=== PATIENT | female | born 1950 | race Two or more races ===

== ENCOUNTER 2020-03-27 09:19 | Outpatient (REF) | payer MEDICARE, MEDICAID, SELFPAY ==
--- NOTE | 2020-03-27 09:35 | US_ITS ---
EXAMINATION: ULTRASOUND GUIDED CORE BIOPSY BREAST (THREE SITES), LEFT POST PROCEDURE DIGITAL BREAST TOMOSYNTHESIS, LEFT CLINICAL INFORMATION: Dominant solid mass anterior upper outer left breast with 2 smaller adjacent satellite lesions, all 3 for sampling. COMPARISON: Mammography 03/13/2020, targeted left breast ultrasound 03/13/2020. FINDINGS: Hospital provided certified court interpreter assisted for both the consent and throughout the procedure. Proper informed consent is obtained from the patient after discussion of the procedure, potential risks and complications, and alternatives. Patient was given an opportunity for questions. The patient appeared to understand. The patient consented to the procedure and signed the consent form. SPECIMEN A: LOCATION: Dominant mass, anterior upper outer left breast 2:00 position, 2 cm from nipple. GUIDANCE: Ultrasound-guided; aseptic technique. LESION: Dominant hypoechoic solid mass approximately 2.3 cm. APPROACH: Oblique lateral medial. ANESTHESIA: 8 mL 1% lidocaine. DERMATOTOMY: Single skin macrina dermatotomy performed. NEEDLE: 14-gauge Achieve core biopsy device with 13.5-gauge co-axial guide needle. CORES: 5. CLIP: HydroMARK; shape: open coil. SPECIMEN B: New biopsy supplies are used. LOCATION: Approximately 1.4 cm lateral to the dominant lesion at specimen A. GUIDANCE: Ultrasound-guided; aseptic technique. LESION: Satellite hypoechoic mass approximately 0.7 cm. APPROACH: Oblique lateral medial through same dermatotomy site. ANESTHESIA: 5 mL 1% lidocaine. DERMATOTOMY: The same skin macrina dermatotomy site from the first lesion is used to access the lesion for the second biopsy. NEEDLE: 14-gauge Achieve core biopsy device with 13.5-gauge co-axial guide needle. CORES: 5. CLIP: HydroMARK; shape: butterfly. SPECIMEN C: New biopsy supplies are used. LOCATION: Slightly more lateral and superficial to specimens A and B. GUIDANCE: Ultrasound-guided; aseptic technique. LESION: Hypoechoic nodule 0.5 cm. APPROACH: Oblique lateral medial through same dermatotomy site. ANESTHESIA: 5 mL 1% lidocaine. DERMATOTOMY: A new skin macrina dermatotomy is performed to allow for the second site of biopsy. . NEEDLE: 14-gauge Achieve core biopsy device with 13.5-gauge co-axial guide needle. CORES: 5. CLIP: HydroMARK; shape: barrel. POST PROCEDURE DIGITAL BREAST TOMOSYNTHESIS, LEFT The post biopsy mammogram is performed in separate room using separate digital breast tomosynthesis equipment. Synthesized 2-D views are obtained from the tomography. In addition, magnification left CC and magnification left ML x3 views are obtained to assist in identifying the clips from the background calcifications. There are scattered areas of fibroglandular density (breast composition category: b). The 3 clip markers are in position. No gross hematoma. The patient tolerated the procedure well. No immediate complications. Home instructions reviewed with the patient. Final pathology results are pending. IMPRESSION: 1. Status post ultrasound-guided core biopsy left breast (3 lesions sampled). 2. Clips placed: HydroMARK; 3 shapes: open coil; butterfly, and barrel. 3. Pathology pending. An addendum report will be issued.
== END 2020-03-27 09:20 | disposition home or self-care (01) ==
LOC: HO.MAMMO 09:19
PROVIDERS: PCP Internal Medicine; Visit Provider Surgery
DX: C50.412 Malignant neoplasm of upper-outer quadrant of left female breast (principal); Z17.1 Estrogen receptor negative status [ER-]; I10 Essential (primary) hypertension; E11.9 Type 2 diabetes mellitus without complications; E78.5 Hyperlipidemia, unspecified
CPT/HCPCS: 19083; 19084; 19286; 77065; 78012; 88305; 88341; 88342; 88360; 88377; 99203; A4648

== ENCOUNTER → 2020-03-30 11:51 | Outpatient (BNVA) | payer MEDICARE, MEDICAID, SELFPAY | PROVIDERS: PCP Internal Medicine; Visit Provider Surgery | DX: C50.912 Malignant neoplasm of unspecified site of left female breast (principal); Z17.1 Estrogen receptor negative status [ER-]; Z98.890 Other specified postprocedural states | CPT/HCPCS: 99213 ==

== ENCOUNTER → 2020-04-05 10:56 | Outpatient (BNVA) | payer MEDICARE, MEDICAID, SELFPAY | PROVIDERS: PCP Internal Medicine; Visit Provider Surgery | DX: C50.412 Malignant neoplasm of upper-outer quadrant of left female breast (principal) | CPT/HCPCS: 99214 ==

== ENCOUNTER 2020-04-16 08:16 | Inpatient (IN) | payer MEDICARE, MEDICAID, SELFPAY ==
[2020-04-13 12:02] VITALS: BMI 32.5
--- NOTE | 2020-04-13 12:20 | HO.ANESPROP2 ---
Documented by User: Lorna Ramirez 04/13/20 12:22 HPI - Anesthesia Eval Consult details Narrative: 70yo F for L mastectomy PMFSH Past Medical History Medical History Abnormal mammogram of left breast Degenerative disc disease Depression Diabetes Dyslipidemia Hypertension Obesity Obstructive sleep apnea Family History Family History Father History of hypertension History of diabetes mellitus Mother History of hypertension History of colon cancer History of diabetes mellitus History of colon polyps History of hypercholesterolemia Paternal Grandfather History of diabetes mellitus Paternal Grandmother History of diabetes mellitus Maternal Grandfather History of diabetes mellitus Maternal Grandmother History of diabetes mellitus History of breast cancer Maternal Uncle History of leukemia Surgical History Surgical History History of colonoscopy (~04/24/06) History of colonoscopy (~07/31/17) History of tubal ligation Invasive ductal carcinoma of left breast Social History Social History Smoking Status: Never smoker Second Hand Smoke Exposure: No Use of substances other than those prescribed or required for medical reasons: No Advance Directives: No Advance Directives Information Provided: Yes Meds Allergies Allergy/AdvReac Type Severity Reaction Status Date / Time iodine Allergy Unknown rash chest Verified 03/30/20 11:56 pain IV dye Allergy Unknown chest Verified 03/30/20 11:56 pian, SOB, pupils dilated oxaprozin [Daypro] Allergy Unknown gastritis Verified 03/30/20 11:56 Home Medications Medication Instructions Recorded Confirmed Type albuterol sulfate 90 mcg/actuation 2 puff INHALATION QID 03/24/20 04/05/20 History aerosol inhaler aspirin 81 mg tablet,delayed 81 mg PO DAILY 03/24/20 04/05/20 History release beclomethasone dipropionate 80 1 inh INHALATION BID 03/24/20 04/05/20 History mcg/actuation HFA breath activated aerosol cholecalciferol (vitamin D3) 25 25 mcg PO DAILY 03/24/20 04/05/20 History mcg (1,000 unit) capsule cyanocobalamin (vitamin B-12) 500 500 mcg PO DAILY 03/24/20 04/05/20 History mcg tablet gabapentin 100 mg capsule 100 mg PO TID 03/24/20 04/05/20 History metformin 1,000 mg tablet 1,000 mg PO BID tab 03/24/20 04/05/20 History omega-3 fatty acids 1,000 mg 1,000 mg PO DAILY 03/24/20 04/05/20 History capsule sertraline 50 mg tablet 50 mg PO DAILY tab 03/24/20 04/05/20 History simvastatin 20 mg tablet 20 mg PO DAILY 03/24/20 04/05/20 History tramadol 50 mg tablet 50 mg PO BID PRN tab 03/24/20 04/05/20 History acetaminophen 650 mg 650 mg PO Q8H 03/27/20 04/05/20 History tablet,extended release lisinopril 20 1 tab PO DAILY 03/27/20 04/05/20 History mg-hydrochlorothiazide 25 mg tablet polysorbate 80-glycerin 1 %-1 % drp OPHTHALMIC (EYE) 03/27/20 04/05/20 History eye drops in a dropperette Exam Exam Date and Time: April 13, 2020 1220 Height,Weight and Vital Signs: Height 5 ft 6 in Weight 91.626 kg Pertinent Lab Results Pertinent Lab Results: Laboratory Tests 02/29/20 02/29/20 12:15 12:15 WBC 4.7 L Hgb 14.7 Hct 46.1 Plt Count 296 Sodium 139 Potassium 4.8 Chloride 98 BUN 9 Creatinine 0.94 Documented by User: Savannah Mistry 04/16/20 08:45 [facility] Past Medical History Medical History Abnormal mammogram of left breast Degenerative disc disease Depression Diabetes Dyslipidemia Hypertension Obesity Obstructive sleep apnea Family History Family History Father History of hypertension History of diabetes mellitus Mother History of hypertension History of colon cancer History of diabetes mellitus History of colon polyps History of hypercholesterolemia Paternal Grandfather History of diabetes mellitus Paternal Grandmother History of diabetes mellitus Maternal Grandfather History of diabetes mellitus Maternal Grandmother History of diabetes mellitus History of breast cancer Maternal Uncle History of leukemia Surgical History Surgical History History of colonoscopy (~04/24/06) History of colonoscopy (~07/31/17) History of tubal ligation Invasive ductal carcinoma of left breast Social History Social History Smoking Status: Never smoker Second Hand Smoke Exposure: No Use of substances other than those prescribed or required for medical reasons: No Advance Directives: No Advance Directives Information Provided: Yes Meds Allergies Allergy/AdvReac Type Severity Reaction Status Date / Time iodine Allergy Unknown rash chest Verified 03/30/20 11:56 pain IV dye Allergy Unknown chest Verified 03/30/20 11:56 pian, SOB, pupils dilated oxaprozin [Daypro] Allergy Unknown gastritis Verified 03/30/20 11:56 Home Medications Medication Instructions Recorded Confirmed Type albuterol sulfate 90 mcg/actuation 2 puff INHALATION QID 03/24/20 04/05/20 History aerosol inhaler aspirin 81 mg tablet,delayed 81 mg PO DAILY 03/24/20 04/05/20 History release beclomethasone dipropionate 80 1 inh INHALATION BID 03/24/20 04/05/20 History mcg/actuation HFA breath activated aerosol cholecalciferol (vitamin D3) 25 25 mcg PO DAILY 03/24/20 04/05/20 History mcg (1,000 unit) capsule cyanocobalamin (vitamin B-12) 500 500 mcg PO DAILY 03/24/20 04/05/20 History mcg tablet gabapentin 100 mg capsule 100 mg PO TID 03/24/20 04/05/20 History metformin 1,000 mg tablet 1,000 mg PO BID tab 03/24/20 04/05/20 History omega-3 fatty acids 1,000 mg 1,000 mg PO DAILY 03/24/20 04/05/20 History capsule sertraline 50 mg tablet 50 mg PO DAILY tab 03/24/20 04/05/20 History simvastatin 20 mg tablet 20 mg PO DAILY 03/24/20 04/05/20 History tramadol 50 mg tablet 50 mg PO BID PRN tab 03/24/20 04/05/20 History acetaminophen 650 mg 650 mg PO Q8H 03/27/20 04/05/20 History tablet,extended release lisinopril 20 1 tab PO DAILY 03/27/20 04/05/20 History mg-hydrochlorothiazide 25 mg tablet polysorbate 80-glycerin 1 %-1 % drp OPHTHALMIC (EYE) 03/27/20 04/05/20 History eye drops in a dropperette Exam Airway Mallampati Class: II TM Dist: >3cm Neck ROM: Full Assessment and Plan Assessment Anesthesia Assessment: Anesthesia Plan Discussed and Chart Reviewed Final Anesthetic Review NPO: Yes ASA Class: III Final Preanesthetic Review: No Changes in Pt Med Stat, Meds/Allgs Chart Reviewed, Consent Obtained/Reviewed and Anes Risks/Benef Reviewed Patient Risk: Intermediate Procedure Risk: Low Assessment/Block/Sedation in SS: Assess/Block/Sedation-SS Anesthetic Plan Anesthetic Plan: GA Disposition: Standard PACU
[2020-04-16] VITALS (21 sets, daily range): BP systolic 101–171; BP diastolic 46–96; PULSE 73–91; RESP 16–20; TEMP 35.9–36.9; O2SAT 92–99
[2020-04-16 08:38] LABS: Glucose, Whole Blood 129 mg/dL (60-115)
[2020-04-16] MEDS: ceFAZolin Sodium/Dextrose,Iso 2 GM/50 ML PIGGYBACK IV (08:57)
[2020-04-16] MEDS: Lactated Ringers 1,000 ML 100 ML IVCONT (08:58)
[2020-04-16 09:49] LABS: SARS COV2 PCR INHOUSE NEGATIVE (Negative)
--- NOTE | 2020-04-16 10:25 | MHC.SHP ---
Pre-Procedural Eval Section A The patient is an INPATIENT: No Changes since office visit: No Cold of Flu in the past 2 weeks, No New Medical Problems and No Changes in Medication The History & Physical has been completed within 30 days and I have reviewed it.: Yes Section B Chief Complaint: Invasive Ductal Carcinoma of Left Breast Allergies: Allergies Allergy/AdvReac Type Severity Reaction Status Date / Time iodine Allergy Unknown rash chest Verified 03/30/20 11:56 pain IV dye Allergy Unknown chest Verified 03/30/20 11:56 pian, SOB, pupils dilated oxaprozin [Daypro] Allergy Unknown gastritis Verified 03/30/20 11:56 Plan Diagnosis/Plan: Unchanged Patient has been examined and remains a candidate for the planned procedure
--- NOTE | 2020-04-16 10:56 | P.CONAN_ITS ---
[facility] Past Medical History Medical History Abnormal mammogram of left breast Degenerative disc disease Depression Diabetes Dyslipidemia Hypertension Obesity Obstructive sleep apnea Family History Family History Father History of hypertension History of diabetes mellitus Mother History of hypertension History of colon cancer History of diabetes mellitus History of colon polyps History of hypercholesterolemia Paternal Grandfather History of diabetes mellitus Paternal Grandmother History of diabetes mellitus Maternal Grandfather History of diabetes mellitus Maternal Grandmother History of diabetes mellitus History of breast cancer Maternal Uncle History of leukemia Surgical History Surgical History History of colonoscopy (~04/24/06) History of colonoscopy (~07/31/17) History of tubal ligation Invasive ductal carcinoma of left breast Social History Social History Smoking Status: Never smoker Second Hand Smoke Exposure: No Use of substances other than those prescribed or required for medical reasons: No Advance Directives: No Advance Directives Information Provided: Yes Meds Allergies Allergy/AdvReac Type Severity Reaction Status Date / Time iodine Allergy Unknown rash chest Verified 03/30/20 11:56 pain IV dye Allergy Unknown chest Verified 03/30/20 11:56 pian, SOB, pupils dilated oxaprozin [Daypro] Allergy Unknown gastritis Verified 03/30/20 11:56 Home Medications Medication Instructions Recorded Confirmed Type albuterol sulfate 90 mcg/actuation 2 puff INHALATION QID 03/24/20 04/05/20 History aerosol inhaler aspirin 81 mg tablet,delayed 81 mg PO DAILY 03/24/20 04/05/20 History release beclomethasone dipropionate 80 1 inh INHALATION BID 03/24/20 04/05/20 History mcg/actuation HFA breath activated aerosol cholecalciferol (vitamin D3) 25 25 mcg PO DAILY 03/24/20 04/05/20 History mcg (1,000 unit) capsule cyanocobalamin (vitamin B-12) 500 500 mcg PO DAILY 03/24/20 04/05/20 History mcg tablet gabapentin 100 mg capsule 100 mg PO TID 03/24/20 04/05/20 History metformin 1,000 mg tablet 1,000 mg PO BID tab 03/24/20 04/05/20 History omega-3 fatty acids 1,000 mg 1,000 mg PO DAILY 03/24/20 04/05/20 History capsule sertraline 50 mg tablet 50 mg PO DAILY tab 03/24/20 04/05/20 History simvastatin 20 mg tablet 20 mg PO DAILY 03/24/20 04/05/20 History tramadol 50 mg tablet 50 mg PO BID PRN tab 03/24/20 04/05/20 History acetaminophen 650 mg 650 mg PO Q8H 03/27/20 04/05/20 History tablet,extended release lisinopril 20 1 tab PO DAILY 03/27/20 04/05/20 History mg-hydrochlorothiazide 25 mg tablet polysorbate 80-glycerin 1 %-1 % drp OPHTHALMIC (EYE) 03/27/20 04/05/20 History eye drops in a dropperette Exam Exam Date and Time: April 16, 2020 1056 Height,Weight and Vital Signs: Height 5 ft 6 in Weight 91.626 kg Last Vital Signs Temp 97.9 F 04/16/20 08:35 Pulse 77 04/16/20 08:35 Resp 18 04/16/20 08:35 BP 171/81 H 04/16/20 08:35 Pulse Ox 99 04/16/20 08:35 Pertinent Lab Results Pertinent Lab Results: Laboratory Tests 04/16/20 04/16/20 08:17 08:28 POC Glucose 129 H Coronavirus (PCR) NEGATIVE
--- NOTE | 2020-04-16 13:03 | PM.OP ---
Brief Operative Note Date of procedure: 04/16/20 Pre-op diagnosis: left infiltrating ductal carcinoma Post-op diagnosis: same Procedure: left modified radical mastectomy Surgeon: SLADE PATINO MD Anesthesia: GLMA Fire Control System Installer: Tiarra Lr Estimated blood loss (mL): 30 Pathology: other (left breast and axillary contents) Condition: stable Disposition: PACU
--- NOTE | 2020-04-16 13:07 | W.PM.OPN ---
Operative Note Operative Note Narrative: Date of procedure: 04/16/20 Pre-op diagnosis: left infiltrating ductal carcinoma Post-op diagnosis: same Procedure: left modified radical mastectomy Indications:70-year-old female patient presenting with a palpable mass in the left breast at the upper outer quadrant. Subsequent core biopsy under radiologic guidance revealed an invasive ductal carcinoma. On examination the patient has an approximately 5 cm tumor in the upper outer quadrant with overlying skin changes including skin redness suggestive of tumor infiltration. The tumor is fixed to the skin but not chest wall. Operative findings: 5 cm tumor in the upper outer quadrant of the left breast with fixation to the skin. Several enlarged lymph nodes were palpable in the axilla. Procedure details: Patient was brought to the OR and placed in a supine position. After administering general anesthesia, the left breast was prepped with ChloraPrep and draped in a sterile fashion. A surgical time-out was called and the consent confirmed. Patient received preoperative antibiotics and Venodyne boots were in place. Local anesthesia consisting of 0.75% Sensorcaine with epinephrine was infiltrated in elliptical fashion around the left breast. An elliptical incision oriented towards the axilla obliquely was then created with margins around the palpable mass of approximately 2 cm. The superior skin flap was developed 1st using electrocautery extending the subcutaneous dissection up to the clavicles. The inferior dissection of the inferior flap was continued down to the costal margin. Lateral dissection was continued to the lateral border of the pectoralis major and anterior border of the latissimus Armando muscles. The breast was then dissected off the chest wall using electrocautery including the pectoralis fascia. This was started from superior to inferior medial to lateral. Dissection was continued around the pectoralis muscle to include Kelly's nodes. Dissection was continued down along the pectoralis major until the axillary vein was identified. The axillary vein was preserved and the overlying lymphatic channels overlying the axillary vein were preserved as well. Dissection was continued down along the axillary vein to identify the thoracodorsal nerve artery and vein. In addition the long thoracic nerve was identified and preserved. The intercostal brachial nerve was sacrificed as a transverse the axillary contents. Axillary tissue from below the pectoralis minor muscle was a included as well (level 2 ) as well as level 1 nodes. Hemostasis was assured all times using free ties of 3 0 Polysorb suture. Lateral dissection was continued along the latissimus Armando muscle and the specimen removed. The specimen was marked with a long suture at the apex of the axilla a short suture at the medial border of the breast and a loop suture at the inferior border of the breast. Two large [place] drains were brought up through separate stab wounds of brought into the axilla and medial flap of the breast. These were secured to the skin using a 4 0 nylon suture. Wounds were irrigated and suctioned dry. Hemostasis was assured using electrocautery. Skin edges were then reapproximated using interrupted 3 0 Polysorb sutures. Skin was then closed using a running subcuticular 4 0 Polysorb suture. Steri-Strips 4 x 4 gauze and Tegaderm were then applied. The patient tolerated the procedure well. Sponge, instrument, and needle counts reported as correct. Patient was transferred to PACU in stable condition. Surgeon: SLADE PATINO MD Anesthesia: GLMA Injection Press Operator: Tiarra Lr Estimated blood loss (mL): 30 Pathology: other (left breast and axillary contents) Condition: stable Disposition: PACU Breast Axillary Dissection Resection was performed within the boundaries of the axillary vein, chest wall (serratus anterior), and latissimus dorsi: Yes The long thoracic and thoracodorsal nerves were spared during dissection: Yes Attempts were made to spare the intercostobrachial nerves during dissection if possible: No General Surg. - Synoptic Notes Breast Axillary Dissection Resection was performed within the boundaries of the axillary vein, chest wall (serratus anterior), and latissimus dorsi: Yes The long thoracic and thoracodorsal nerves were spared during dissection: Yes Attempts were made to spare the intercostobrachial nerves during dissection if possible: No
[2020-04-16 13:14] LABS: Glucose, Whole Blood 135 mg/dL (60-115)
[2020-04-16] MEDS: Acetaminophen 325 MG TABLET 650 MG PO (13:32)
[2020-04-16] MEDS: oxyCODONE HCl Immed Release 5 MG TABLET PO ×2 (13:33→20:37)
[2020-04-16] MEDS: fentaNYL citrate/PF 100 MCG/2 ML VIAL 50 MCG IVPUSH ×2 (13:35→13:40)
[2020-04-16] MEDS: Morphine Sulfate 4 MG/ML CARTRIDGE IVPUSH (17:50)
[2020-04-16] MEDS: Dextrose 5 % and 0.45 % NaCl 1,000 ML 100 ML IVCONT (17:54)
--- NOTE | 2020-04-16 20:43 | P.CONIM_ITS ---
History of Present Illness Data of Consult Service Date: 04/16/20 <Lynn Glynn NP - Last Filed: 04/17/20 18:30> Requesting physician: Tobi Trujillo <Lynn Glynn NP - Last Filed: 04/17/20 18:30> Primary Care Provider: Julieth Pérez MD <Lynn Glynn NP - Last Filed: 04/17/20 18:30> HPI Reason for consult: Medical management <Lynn Glynn NP - Last Filed: 04/17/20 18:30> 70 Year old man/woman with history of breast cancer, htn, hld admitted by general surgery and is status post mastectomy. Surgery was unremarkable. Patient has been able to eat and drink without any nausea or vomiting. Pain level is mild. No acute medical complaints at this time. <Lynn Glynn NP - Last Filed: 04/17/20 18:30> Review of Systems Review of Systems: Denies any recent fever chills or decrease in appetite respiratory denies any shortness of breath coverage production cardiovascular is adjustment of any PND or edema gastrointestinal denies any dysphagia abdominal pain nausea vomiting or diarrhea genitourinary denies any dysuria frequency or hematuria postop mastectomy neuropsych denies any weakness or seizures all other systems reviewed are negative <Lynn Glynn NP - Last Filed: 04/17/20 18:30> [facility] Medical History: Medical History (Updated 04/16/20 @ 20:46 by Lynn Glynn NP) Abnormal mammogram of left breast Degenerative disc disease Depression Diabetes Dyslipidemia Hypertension Obesity Obstructive sleep apnea <Lynn Glynn NP - Last Filed: 04/17/20 18:30> Family History: Family History Father History of hypertension History of diabetes mellitus Mother History of hypertension History of colon cancer History of diabetes mellitus History of colon polyps History of hypercholesterolemia Paternal Grandfather History of diabetes mellitus Paternal Grandmother History of diabetes mellitus Maternal Grandfather History of diabetes mellitus Maternal Grandmother History of diabetes mellitus History of breast cancer Maternal Uncle History of leukemia <Lynn Glynn NP - Last Filed: 04/17/20 18:30> Surgical History: Surgical History (Updated 04/17/20 @ 07:48 by Tiarra Lr PA-C) History of colonoscopy (~04/24/06) History of colonoscopy (~07/31/17) History of tubal ligation Invasive ductal carcinoma of left breast <Lynn Glynn NP - Last Filed: 04/17/20 18:30> Social History: Social History Household Members: Family Smoking Status: Never smoker Second Hand Smoke Exposure: No service: No Current occupational status: disabled <Lynn Glynn NP - Last Filed: 04/17/20 18:30> Meds Allergies/Adverse reactions: Allergies Allergy/AdvReac Type Severity Reaction Status Date / Time iodine Allergy Unknown rash chest Verified 04/16/20 19:43 pain IV dye Allergy Unknown chest Verified 04/16/20 19:43 pian, SOB, pupils dilated oxaprozin [Daypro] Allergy Unknown gastritis Verified 04/16/20 19:43 <Lynn Glynn NP - Last Filed: 04/17/20 18:30> Home medications: Home Medications Medication Instructions Recorded Confirmed Type albuterol sulfate 90 mcg/actuation 2 puff INHALATION QID PRN 03/24/20 04/16/20 History aerosol inhaler aspirin 81 mg tablet,delayed 81 mg PO DAILY 03/24/20 04/16/20 History release beclomethasone dipropionate 80 1 inh INHALATION BID 03/24/20 04/16/20 History mcg/actuation HFA breath activated aerosol cholecalciferol (vitamin D3) 25 25 mcg PO DAILY 03/24/20 04/16/20 History mcg (1,000 unit) capsule cyanocobalamin (vitamin B-12) 500 500 mcg PO DAILY 03/24/20 04/16/20 History mcg tablet metformin 1,000 mg tablet 1,000 mg PO BID tab 03/24/20 04/16/20 History omega-3 fatty acids 1,000 mg 1,000 mg PO DAILY 03/24/20 04/16/20 History capsule sertraline 50 mg tablet 50 mg PO DAILY tab 03/24/20 04/16/20 History tramadol 50 mg tablet 50 mg PO BID PRN tab 03/24/20 04/16/20 History acetaminophen 650 mg 650 mg PO DIRECTED PRN 03/27/20 04/16/20 History tablet,extended release lisinopril 20 1 tab PO DAILY 03/27/20 04/16/20 History mg-hydrochlorothiazide 25 mg tablet atorvastatin 10 mg PO BEDTIME 04/16/20 04/16/20 History carboxymethylcellulose sodium 2 drp OPHTHALMIC (EYE) BID PRN 04/16/20 04/16/20 History gabapentin 300 mg PO TID 04/16/20 04/16/20 History <Lynn Glynn NP - Last Filed: 04/17/20 18:30> Physical Exam Vital Signs and Narrative: Vital Signs: Last Vital Signs Temp 98.5 F 04/16/20 19:45 Pulse 78 04/16/20 19:45 Resp 19 04/16/20 19:45 BP 150/73 H 04/16/20 19:45 Pulse Ox 92 04/16/20 19:45 Body Mass Index 32.5 <Lynn Glynn NP - Last Filed: 04/17/20 18:30> Appearing in no acute distress head is normocephalic atraumatic eyes pupils are PERRLA sclera is anicteric mouth throat mucous membranes are intact and moist neck is supple no lymphadenopathy, no JVD noted lung sounds are clear to auscultation heart regular rate rhythm, clear S1, S2 positive bowel sounds, abdomen is soft, nontender neuro patient is alert x3, no focal deficits dressing with compression intact, HERVE drain x2 <Lynn Glynn NP - Last Filed: 04/17/20 18:30> Results Labs Labs: Laboratory Tests 04/16/20 04/16/20 04/16/20 08:17 08:28 13:10 POC Glucose 129 H 135 H Coronavirus (PCR) NEGATIVE <Lynn Glynn NP - Last Filed: 04/17/20 18:30> Assessment and Plan (1) Hypertension: Status: Acute <Lynn Glynn NP - Last Filed: 04/17/20 18:30> (2) Dyslipidemia: Status: Acute <Lynn Glynn NP - Last Filed: 04/17/20 18:30> (3) Depression: Status: Acute <Lynn Glynn NP - Last Filed: 04/17/20 18:30> (4) Diabetes: Problem details: NIDDM <Lynn Glynn NP - Last Filed: 04/17/20 18:30> Status: Acute <Lynn Glynn NP - Last Filed: 04/17/20 18:30> (5) Invasive ductal carcinoma of left breast: Status: Acute <Lynn Glynn NP - Last Filed: 04/17/20 18:30> 70-year-old woman admitted by General surgery and is status post left breastmastectomy Left breast mastectomy. Management as per surgical team. Pain management. Diabetes mellitus. Sliding scale, ADA diet. Hypertension. Stable blood pressure. Continue home medications. Hyperlipidemia. Continue statin. Depression. Continue home medications. DVT prophylaxis as per surgical team. Discussed with Dr. Rollins Full code <Lynn Glynn NP - Last Filed: 04/17/20 18:30>
[2020-04-16] MEDS: Atorvastatin Calcium 10 MG TABLET PO (21:51)
[2020-04-17] MEDS: Temazepam 15 MG CAPSULE PO ×2 (00:58→21:27)
[2020-04-17] MEDS: oxyCODONE HCl Immed Release 5 MG TABLET PO ×5 (00:59→19:34)
[2020-04-17 04:00] VITALS: BP 109/62; PULSE 73; RESP 19; TEMP 36.8; O2SAT 96
[2020-04-17 06:11] LABS: MANUAL DIFF FLAG NO
[2020-04-17 06:18] LABS: Basophils Percent Auto 0.3 % (0-2); Eosinophils Absolute Auto 0.1 X10*3/uL (0.0-0.4); Hemoglobin 13.3 g/dl (12.0-16.0); Imm Gran Abs Auto 0.03 X10*3/uL (0.00-0.03); Imm Gran Pct Auto 0.3 % (0.0-0.4); Lymphocytes Absolute Auto 4.2 X10*3/uL (1.2-4.9); Lymphocytes Percent Auto 45.3 % (20-40); Mean Corpuscular HGB Conc 33.3 g/dl (31.0-35.0); Mean Corpuscular Hemoglobin 28.4 pg (27.0-33.0); Mean Corpuscular Volume 85.3 fL (80-98); Mean Platelet Volume 10.2 fL (9.4-12.3); Monocytes Absolute Auto 0.8 X10*3/uL (0.1-1.2); Monocytes Percent Auto 8.5 % (2-11); Neutrophils Absolute Auto 4.1 X10*3/uL (2.0-8.3); Neutrophils Percent Auto 44.6 % (45-73); Platelet Count 280 X10*3/uL (160-400); Red Blood Count 4.69 X10*6/uL (4.20-5.50); Red Cell Distribution Width 12.8 % (11.0-16.0); White Blood Count 9.2 X10*3/uL (4.8-10.8)
[2020-04-17 06:45] LABS: Anion Gap 16 (12-20); Blood Urea Nitrogen 11 mg/dL (9-16); Calcium 8.7 mg/dL (8.4-10.2); Carbon Dioxide 26 mmol/L (22-29); Chloride 100 mmol/L (96-108); Creatinine Clr Calc Pharmacy 84.1; Estimated Glomerular Filt Rate > 60; Glucose Random 167 mg/dL (60-115); Potassium 3.9 mmol/l (3.3-5.1); Sodium 138 mmol/L (135-145)
[2020-04-17] MEDS: Fluticasone Propionate 100 MCG BLST.W.DEV 1 PUFF INHALE ×2 (07:21→20:18)
--- NOTE | 2020-04-17 07:45 | P.PNGS_ITS ---
Subjective Subjective Interval history: Feels well today, comfortable. Taking PO and IV analgesics. Tolerating solid diet. Denies nausea or vomiting. <LEANDER Walker Last Filed: 04/17/20 07:52> Physical Exam Vital Signs: Vital Signs: Vital Signs Temp Pulse Resp BP Pulse Ox 04/17/20 04:00 98.3 F 73 19 109/62 96 04/16/20 23:29 96.7 F L 78 19 119/66 96 04/16/20 23:28 96.7 F L 82 19 119/66 97 04/16/20 20:00 20 04/16/20 19:45 98.5 F 78 19 150/73 H 92 04/16/20 19:10 98.0 F 73 18 116/58 L 95 04/16/20 17:50 18 04/16/20 15:20 78 17 117/68 95 04/16/20 15:05 96.9 F 80 16 133/73 95 04/16/20 14:50 76 16 133/73 95 04/16/20 14:35 77 16 123/66 95 04/16/20 14:20 78 16 123/66 96 04/16/20 14:05 77 16 142/75 H 96 04/16/20 13:50 90 16 133/72 96 04/16/20 13:45 91 16 117/61 96 04/16/20 13:40 90 16 130/64 96 04/16/20 13:35 91 16 131/96 H 96 04/16/20 13:20 84 16 101/52 L 97 04/16/20 13:15 79 18 119/47 L 97 04/16/20 13:10 80 16 108/46 L 97 04/16/20 13:05 97.5 F 82 18 118/46 L 97 04/16/20 08:35 97.9 F 77 18 171/81 H 99 Body Mass Index 32.5 <LEANDER Walker Last Filed: 04/17/20 07:52> Const: General: cooperative, comfortable, no acute distress, well developed and alert <LEANDER Walker Last Filed: 04/17/20 07:52> Orientation/consciousness: patient oriented x3 <LEANDER Walker Last Filed: 04/17/20 07:52> Eyes: Sclerae: sclerae normal <Tiarra Lr PA-C Last Filed: 04/17/20 07:52> Chest: Breast/axilla inspection: Other (dressing c/d/i to left breast, HERVE drain with sanguineous drainage) <Tiarra Lr PA-C Atif Last Filed: 04/17/20 07:52> Breast/axilla palpation: other (mild incisional tenderness) <Tiarra Lr PA-C Last Filed: 04/17/20 07:52> Resp: Effort & Inspection: normal respiratory effort <Tiarra Lr PA-C Atif Filed: 04/17/20 07:52> Cardio: Rate: regular rate <Tiarra Lr PA-C Atif Filed: 04/17/20 07:52> Skin: General skin exam: no rashes or lesions noted <Tiarra Lr PA-C Atif Filed: 04/17/20 07:52> Neuro: General: patient oriented x3 <RAMON WalkerFrank Srivastava Filed: 04/17/20 07:52> Extrem: General: Yes no clubbing, cyanosis or edema <Tiarra Lr PA-C Atif Filed: 04/17/20 07:52> Progress Note: A&P Assessment and plan (1) Invasive ductal carcinoma of left breast: Status: Acute <LEANDER Walker Filed: 04/17/20 07:52> (2) History of modified radical mastectomy of left breast: Status: Acute <Tiarra Lr PA-C Atif Last Filed: 04/17/20 07:52> Assessment and Plan: POD #1, doing well. Pain controlled and she is comfortable. Dressing c/d/i, HERVE drain with sanguineous drainage. Keep drains in place, repeat labs in AM. Cont pain control. Likely home tomorrow with VNA services. <Tiarra Lr PA-C Atif Last Filed: 04/17/20 07:52> As noted above the patient is comfortable on oral pain medications. [place] is draining sanguinous discharge from the axilla and serosanguineous discharge from the breast. Encourage patient to ambulate today; agree with the above assessment and plan. Possible discharge in a.m. tomorrow. <Ziggy Estrada MD - Last Filed: 04/17/20 08:21> (3) Diabetes: Problem details: NIDDM <Tiarra Lr PA-C - Last Filed: 04/17/20 07:52> Status: Acute <Tiarra Lr PA-C - Last Filed: 04/17/20 07:52> Assessment and Plan: Resume home meds. <Tiarra Lr PA-C - Last Filed: 04/17/20 07:52> (4) Hypertension: Status: Acute <Tiarra Lr PA-C - Last Filed: 04/17/20 07:52> Fall Risk Details Current Medications: Current Medications Generic Name Dose Route Start Last Admin Trade Name Freq PRN Reason Stop Dose Admin Acetaminophen 650 mg 04/16/20 12:55 04/16/20 13:32 Acetaminophen 325 Mg Tablet PO 650 mg Q6H PRN Administration Pain, Mild (Pain Scale 1-3) Albuterol Sulfate 2 puff 04/16/20 20:47 Albuterol Sulfate 90 Mcg 18 Gm Inhaler INHALE QID PRN Shortness Of Breath Atorvastatin Calcium 10 mg 04/16/20 21:00 04/16/20 21:51 Atorvastatin Calcium 10 Mg Tablet PO 10 mg BEDTIME LANRE Administration Cyanocobalamin 500 mcg 04/17/20 09:00 Cyanocobalamin (Vitamin B-12) 500 Mcg Tablet PO DAILY LANRE Docusate Sodium 100 mg 04/16/20 12:55 Docusate Sodium 100 Mg Capsule PO DAILY PRN Constipation Fentanyl 50 mcg 04/16/20 11:36 04/16/20 13:40 Fentanyl Citrate/Pf 100 Mcg/2 Ml Vial IVPUSH 50 mcg Q5M PRN Administration Pain, Severe (Pain Scale 7-10) Fluticasone Propionate 1 puff 04/17/20 08:00 04/17/20 07:21 Fluticasone Propionate 100 Mcg Blst.W.Dev INHALE 1 puff RBID LANRE Administration Gabapentin 300 mg 04/16/20 21:00 04/16/20 21:43 Gabapentin 300 Mg Capsule PO Not Given TID [facility] Hydrochlorothiazide 25 mg 04/17/20 09:00 Hydrochlorothiazide 25 Mg Tablet PO DAILY [facility] Dextrose/Sodium Chloride 1,000 mls @ 100 mls/hr 04/16/20 13:00 04/17/20 04:01 D51/2ns IVCONT Infused .Q10H LANRE Infusion Lisinopril 20 mg 04/17/20 09:00 Lisinopril 20 Mg Tablet PO DAILY [facility] Metformin HCl 1,000 mg 04/16/20 21:00 04/16/20 21:46 Metformin Hcl 1,000 Mg Tablet PO Not Given BID [facility] Morphine Sulfate 4 mg 04/16/20 12:55 04/16/20 17:50 Morphine Sulfate 4 Mg/Ml Cartridge IVPUSH 4 mg Q3H PRN Administration Pain, Severe (Pain Scale 7-10) Ondansetron HCl 4 mg 04/16/20 12:55 Ondansetron Hcl 4 Mg/2 Ml Vial IVPUSH Q8H PRN Nausea and Vomiting Oxycodone HCl 5 mg 04/16/20 12:55 04/17/20 05:51 Oxycodone Hcl Immed Release 5 Mg Tablet PO 5 mg Q4H PRN Administration Pain, Moderate (Pain Scale 4-6 Sertraline HCl 50 mg 04/17/20 09:00 Sertraline Hcl 50 Mg Tablet PO DAILY [facility] Temazepam 15 mg 04/16/20 12:55 04/17/20 00:58 Temazepam 15 Mg Capsule PO 15 mg BEDTIME PRN Administration Insomnia Tramadol HCl 50 mg 04/16/20 20:47 Tramadol Hcl 50 Mg Tablet PO BID PRN Pain Vitamin D 25 mcg 04/17/20 09:00 Cholecalciferol (Vitamin D3) 25 Mcg Tablet PO DAILY [facility] <Tiarra Lr PA-C - Last Filed: 04/17/20 07:52> Time Spent With Patient Time: Total time spent is greater than 50% in coordination of care (as documented) at patient's floor/unit and/or counseling patient: <Tiarra Lr PA-C - Last Filed: 04/17/20 07:52> Time with patient: 15 - 24 minutes <Tiarra Lr PA-C - Last Filed: 04/17/20 07:52>
[2020-04-17 07:54] VITALS: BP 153/71; PULSE 81; RESP 19; TEMP 36.6; O2SAT 95
[2020-04-17] MEDS: metFORMIN HCl 1,000 MG TABLET 1000 MG PO ×2 (09:07→21:27)
[2020-04-17] MEDS: Sertraline HCL 50 MG TABLET PO (09:07)
[2020-04-17] MEDS: Cyanocobalamin (Vitamin B-12) 500 MCG TABLET PO (09:07)
[2020-04-17] MEDS: Gabapentin 300 MG CAPSULE PO ×3 (09:07→21:27)
[2020-04-17] MEDS: Cholecalciferol (Vitamin D3) 25 MCG TABLET PO (09:07)
[2020-04-17] MEDS: lisinopriL 20 MG TABLET PO (09:07)
[2020-04-17] MEDS: hydroCHLOROthiazide 25 MG TABLET PO (09:07)
--- NOTE | 2020-04-17 12:20 | MHC.CM.PN ---
NURSE CARE MANGER NOTE ELECTRONIC MEDICAL RECORD REVIEWED ALONG WITH CASE DISCUSSED WITH STAFF NURSE AND SURGICAL PVirginia PATIENT. LIVES WITH HER DAUGHTER MITCHELL PATIENT IS JAPANESE SPEAKING ONLY AND DECLINED INTERPERTER REQUESTED HER DAUGHTER INTERPERET. 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 DISCUSSED VNA AND PT/DAUGHTER REQUESTED THE [facility] VNA INIATED REFERRAL WITH CLINICAL UPDATES TO [facility] , THEY REPORTED THAT THEY CAN GO OUT FOR A FEX DAILY VISIST S ONLY NOT DAILY CONTINOUSLY, THEY WILL CALL THE DAUGHTER TO REVIEW THIS WITH HER , THEY CONFIRMED WITH [facility] THAT THAT WAS ACCEPTABLE TO PATIENT [facility], DISCHARGE PLAN HOME WITH HER DAUGHTER WITH REFERRAL TO THE [facility] FOR RNUSIGN PCP AND SURGICAL FOLLOW UP PER DISCHARGE INSTRUCTIONS TRANSPORTATION FAMILY
--- NOTE | 2020-04-17 13:28 | W.MHC.F2F ---
Documented by User: Tiarra Lr PA-C 04/18/20 08:18 Service Date Service Date: 04/17/20 Reasons for Services overseeing care: Ziggy Estrada MD Homebound: Leaving the home is medically contraindicated at this time without the asist of a device and/or another person due th the listed conditions above and below. Certification: Based on the above findings, I certify that this patient is confined to the home and needs intermittent senior care care, physical therapy and/or speech therapy, or continues to need occupational therapy. The patient is under my care, and I have initiated the establishment of the plan of care. The patient will be followed by a physician who will periodically review the plan of care.
--- NOTE | 2020-04-17 14:33 | HO.PM.IMPN ---
Subjective Subjective Date of Service: 04/17/20 Interval History: patient offers no acute complaints good pain control tolerating by mouth, no nausea , no vomiting, no diarrhea. Review of Systems General no headache, no dizziness no fever chills. CVS no chest pain, no palpitation. Respiratory no cough, no sputum production, no respiratory distress. Gastrointestinal no nausea no vomiting, no abdominal pain Physical Exam Vital Signs: Vital Signs: Vital Signs Temp Pulse Resp BP Pulse Ox 04/17/20 07:54 97.9 F 81 19 153/71 H 95 04/17/20 04:00 98.3 F 73 19 109/62 96 04/16/20 23:29 96.7 F L 78 19 119/66 96 04/16/20 23:28 96.7 F L 82 19 119/66 97 04/16/20 20:00 20 04/16/20 19:45 98.5 F 78 19 150/73 H 92 04/16/20 19:10 98.0 F 73 18 116/58 L 95 04/16/20 17:50 18 04/16/20 15:20 78 17 117/68 95 04/16/20 15:05 96.9 F 80 16 133/73 95 04/16/20 14:50 76 16 133/73 95 04/16/20 14:35 77 16 123/66 95 Body Mass Index 32.5 General patient resting comfortably in no acute distress. Neck is supple no JVD. CVS regular rate rhythm, Chest compression dressing in place, with 2 HERVE drain Respiratory lungs clear to auscultation, no respiratory distress. Gastrointestinal abdomen soft, nontender, bowel sounds audible, no guarding , no rigidity. Extremities no edema. Neuro nonfocal patient moving all 4 extremity speech clear. Skin no rash Objective Data Current Medications Generic Name Dose Route Start Last Admin Trade Name Freq PRN Reason Stop Dose Admin Acetaminophen 650 mg 04/16/20 12:55 04/16/20 13:32 Acetaminophen 325 Mg Tablet PO 650 mg Q6H PRN Administration Pain, Mild (Pain Scale 1-3) Albuterol Sulfate 2 puff 04/16/20 20:47 Albuterol Sulfate 90 Mcg 18 Gm Inhaler INHALE QID PRN Shortness Of Breath Atorvastatin Calcium 10 mg 04/16/20 21:00 04/16/20 21:51 Atorvastatin Calcium 10 Mg Tablet PO 10 mg BEDTIME LANRE Administration Cyanocobalamin 500 mcg 04/17/20 09:00 04/17/20 09:07 Cyanocobalamin (Vitamin B-12) 500 Mcg Tablet PO 500 mcg DAILY LANRE Administration Docusate Sodium 100 mg 04/16/20 12:55 Docusate Sodium 100 Mg Capsule PO DAILY PRN Constipation Fentanyl 50 mcg 04/16/20 11:36 04/16/20 13:40 Fentanyl Citrate/Pf 100 Mcg/2 Ml Vial IVPUSH 50 mcg Q5M PRN Administration Pain, Severe (Pain Scale 7-10) Fluticasone Propionate 1 puff 04/17/20 08:00 04/17/20 07:21 Fluticasone Propionate 100 Mcg Blst.W.Dev INHALE 1 puff RBID LANRE Administration Gabapentin 300 mg 04/16/20 21:00 04/17/20 09:07 Gabapentin 300 Mg Capsule PO 300 mg TID LANRE Administration Hydrochlorothiazide 25 mg 04/17/20 09:00 04/17/20 09:07 Hydrochlorothiazide 25 Mg Tablet PO 25 mg DAILY LANRE Administration Dextrose/Sodium Chloride 1,000 mls @ 100 mls/hr 04/16/20 13:00 04/17/20 10:07 D51/2ns IVCONT Not Given .Q10H LANRE Lisinopril 20 mg 04/17/20 09:00 04/17/20 09:07 Lisinopril 20 Mg Tablet PO 20 mg DAILY LANRE Administration Metformin HCl 1,000 mg 04/16/20 21:00 04/17/20 09:07 Metformin Hcl 1,000 Mg Tablet PO 1,000 mg BID LANRE Administration Morphine Sulfate 4 mg 04/16/20 12:55 04/16/20 17:50 Morphine Sulfate 4 Mg/Ml Cartridge IVPUSH 4 mg Q3H PRN Administration Pain, Severe (Pain Scale 7-10) Ondansetron HCl 4 mg 04/16/20 12:55 Ondansetron Hcl 4 Mg/2 Ml Vial IVPUSH Q8H PRN Nausea and Vomiting Oxycodone HCl 5 mg 04/16/20 12:55 04/17/20 10:06 Oxycodone Hcl Immed Release 5 Mg Tablet PO 5 mg Q4H PRN Administration Pain, Moderate (Pain Scale 4-6 Sertraline HCl 50 mg 04/17/20 09:00 04/17/20 09:07 Sertraline Hcl 50 Mg Tablet PO 50 mg DAILY LANRE Administration Temazepam 15 mg 04/16/20 12:55 04/17/20 00:58 Temazepam 15 Mg Capsule PO 15 mg BEDTIME PRN Administration Insomnia Vitamin D 25 mcg 04/17/20 09:00 04/17/20 09:07 Cholecalciferol (Vitamin D3) 25 Mcg Tablet PO 25 mcg DAILY LANRE Administration Labs CBC & Chem 7: 04/17/20 05:27 04/17/20 05:27 Assessment and Plan (1) Hypertension: Status: Acute (2) Diabetes: Problem details: NIDDM Status: Acute (3) Dyslipidemia: Status: Acute (4) Depression: Status: Acute (5) Invasive ductal carcinoma of left breast: Status: Acute (6) History of modified radical mastectomy of left breast: Status: Acute Assessment and Plan: 70-year-old woman admitted by General surgery for an elective left breast mastectomy Left breast mastectomy. Management per surgical team. good pain control on IV Tylenol and by mouth oxycodone, will add stool softeners, incentive spirometry. will DC IV fluid. Diabetes mellitus. Blood sugars stable 167 this a.m. continue metformin and ADA diet. Hypertension. Stable blood pressure. Continue home medications hydrochlorothiazide and lisinopril. Hyperlipidemia. Continue statin. LDL 52 Depression. no acute decompensated,Continue home medications. DVT prophylaxis with compression boots per surgical team.
[2020-04-17 15:00] VITALS: BMI 32.5
[2020-04-17 15:34] VITALS: BP 109/61; PULSE 76; RESP 17; TEMP 36.3; O2SAT 95
--- NOTE | 2020-04-17 16:10 | HO.POSTANES ---
Post Anesthesia Evaluation Post Anesthesia Evaluation Vital Signs: Vital Signs Temp Pulse Resp BP Pulse Ox 04/17/20 15:34 97.4 F 76 17 109/61 95 04/17/20 07:54 97.9 F 81 19 153/71 H 95 Anesthesia: General Mental Status: Awake Pain Control: Satisfactory Nausea/Vomiting: None Hydration: Adequate Anesthesia-Related Issues: No Anes. Related Issues
[2020-04-17 19:31] VITALS: BP 115/74; PULSE 68; RESP 19; TEMP 36.2; O2SAT 97
[2020-04-17] MEDS: Atorvastatin Calcium 10 MG TABLET PO (21:26)
[2020-04-17] MEDS: Docusate Sodium 100 MG CAPSULE PO (21:27)
[2020-04-18 00:38] VITALS: BP 112/49; PULSE 82; RESP 16; TEMP 36; O2SAT 97
[2020-04-18 06:21] LABS: MANUAL DIFF FLAG NO
[2020-04-18] MEDS: oxyCODONE HCl Immed Release 5 MG TABLET PO ×2 (06:26→10:22)
[2020-04-18 06:33] LABS: Basophils Absolute Auto 0.1 X10*3/uL (0.0-0.2); Basophils Percent Auto 0.6 % (0-2); Eosinophils Absolute Auto 0.1 X10*3/uL (0.0-0.4); Eosinophils Percent Auto 1.5 % (0-4); Hematocrit 40.4 % (37-47); Hemoglobin 12.9 g/dl (12.0-16.0); Imm Gran Abs Auto 0.01 X10*3/uL (0.00-0.03); Imm Gran Pct Auto 0.1 % (0.0-0.4); Lymphocytes Absolute Auto 3.2 X10*3/uL (1.2-4.9); Lymphocytes Percent Auto 40.7 % (20-40); Mean Corpuscular HGB Conc 31.9 g/dl (31.0-35.0); Mean Corpuscular Hemoglobin 27.9 pg (27.0-33.0); Mean Corpuscular Volume 87.4 fL (80-98); Mean Platelet Volume 9.7 fL (9.4-12.3); Monocytes Absolute Auto 0.6 X10*3/uL (0.1-1.2); Monocytes Percent Auto 7.7 % (2-11); Neutrophils Absolute Auto 3.8 X10*3/uL (2.0-8.3); Neutrophils Percent Auto 49.4 % (45-73); Platelet Count 304 X10*3/uL (160-400); Red Blood Count 4.62 X10*6/uL (4.20-5.50); Red Cell Distribution Width 12.8 % (11.0-16.0); White Blood Count 7.8 X10*3/uL (4.8-10.8)
--- NOTE | 2020-04-18 07:29 | W.MHC.F2F ---
Service Date Service Date: 04/18/20 Encounter Date of encounter: 04/18/20 Reasons for Services Signs and symptoms assessed: Pain control; wound appearance, HERVE drain output Reason for shelter: wound care and postoperative assessment and/or care MD overseeing care: Ziggy Estrada MD Homebound: Leaving the home is medically contraindicated at this time without the asist of a device and/or another person due th the listed conditions above and below. Reason homebound: weakness related to hospital stay and unable to drive Homebound supporting statement: Ms. Bernard Bruno is s/p left modified radical mastectomy. She has two HERVE drains in place. She will need VNA for post operative and drain care. Certification: Based on the above findings, I certify that this patient is confined to the home and needs intermittent shelter care, physical therapy and/or speech therapy, or continues to need occupational therapy. The patient is under my care, and I have initiated the establishment of the plan of care. The patient will be followed by a physician who will periodically review the plan of care.
[2020-04-18 07:53] VITALS: BP 131/71; PULSE 85; RESP 17; TEMP 36.8; O2SAT 96
[2020-04-18] MEDS: Fluticasone Propionate 100 MCG BLST.W.DEV 1 PUFF INHALE (08:05)
--- NOTE | 2020-04-18 08:12 | PM.PNGS ---
Subjective Subjective Interval history: Feels well, comfortable with PO analgesics. Denies numbness, tingling of L arm. Wants to go home. <Tiarra Lr PA-C Last Filed: 04/18/20 08:17> Physical Exam Vital Signs: Vital Signs: Vital Signs Temp Pulse Resp BP Pulse Ox 04/18/20 07:53 98.3 F 85 17 131/71 96 04/18/20 00:38 96.8 F 82 16 112/49 L 97 04/17/20 19:31 97.1 F 68 19 115/74 97 04/17/20 15:34 97.4 F 76 17 109/61 95 Body Mass Index 32.5 <Tiarra Lr PA-C Last Filed: 04/18/20 08:17> Const: General: healthy appearing, comfortable, no acute distress and alert <LEANDER Walker Last Filed: 04/18/20 08:17> Orientation/consciousness: patient oriented x3 <Tiarra Lr PA-C Last Filed: 04/18/20 08:17> Eyes: Sclerae: sclerae normal <Tiarra Lr PA-C Last Filed: 04/18/20 08:17> Chest: Other: HERVE drain with serosanguineous drainage, axillary > breast <Tiarra Lr PA-C Last Filed: 04/18/20 08:17> Breast/axilla inspection: Other (left mastectomy incision clean, no erythema) <LEANDER Walker Last Filed: 04/18/20 08:17> Breast/axilla palpation: other (mild incisional tenderness) <LEANDER Walker Last Filed: 04/18/20 08:17> Resp: Effort & Inspection: normal respiratory effort <Tiarra Lr PA-C Last Filed: 04/18/20 08:17> GI: Inspection: No distended <LEANDER Walker Last Filed: 04/18/20 08:17> Palpation (GI): Soft to palpation <LEANDER Walker Last Filed: 10/28/20 08:17> Skin: General skin exam: no rashes or lesions noted <Tiarra Lr PA-C - Last Filed: 04/18/20 08:17> Neuro: General: patient oriented x3 <Tiarra Lr PA-C tAif Last Filed: 04/18/20 08:17> Extrem: General: Yes no clubbing, cyanosis or edema <Tiarra Lr PA-C - Last Filed: 04/18/20 08:17> Progress Note: A&P Assessment and plan (1) History of modified radical mastectomy of left breast: Status: Acute <Tiarra Lr PA-C Atif Last Filed: 04/18/20 08:17> Assessment and Plan: POD #2. Doing well post op. Comfortable. VSS. Mastectomy site clean, HERVE drain output remain moderately high but more serosanguineous today. Keep in place. Patient feels ready for discharge to home. D/c to home today with VNA services. Has f/u appt with Dr. Estrada next week in office. <Tiarra Lr PA-C - Last Filed: 04/18/20 08:17> (2) Invasive ductal carcinoma of left breast: Status: Acute <Tiarra Lr PA-C Last Filed: 04/18/20 08:17> (3) Diabetes: Problem details: NIDDM <Tiarra Lr PA-C Last Filed: 04/18/20 08:17> Status: Acute <Tiarra Lr PA-C Atif Last Filed: 04/18/20 08:17> Fall Risk Details Current Medications: Current Medications Generic Name Dose Route Start Last Admin Trade Name Freq PRN Reason Stop Dose Admin Acetaminophen 650 mg 04/16/20 12:55 04/16/20 13:32 Acetaminophen 325 Mg Tablet PO 650 mg Q6H PRN Administration Pain, Mild (Pain Scale 1-3) Albuterol Sulfate 2 puff 04/16/20 20:47 Albuterol Sulfate 90 Mcg 18 Gm Inhaler INHALE QID PRN Shortness Of Breath Atorvastatin Calcium 10 mg 04/16/20 21:00 04/17/20 21:26 Atorvastatin Calcium 10 Mg Tablet PO 10 mg BEDTIME LANRE Administration Cyanocobalamin 500 mcg 04/17/20 09:00 04/17/20 09:07 Cyanocobalamin (Vitamin B-12) 500 Mcg Tablet PO 500 mcg DAILY LANRE Administration Docusate Sodium 100 mg 04/17/20 21:00 04/17/20 21:27 Docusate Sodium 100 Mg Capsule PO 100 mg BID LANRE Administration Fentanyl 50 mcg 04/16/20 11:36 04/16/20 13:40 Fentanyl Citrate/Pf 100 Mcg/2 Ml Vial IVPUSH 50 mcg Q5M PRN Administration Pain, Severe (Pain Scale 7-10) Fluticasone Propionate 1 puff 04/17/20 08:00 04/18/20 08:05 Fluticasone Propionate 100 Mcg Blst.W.Dev INHALE 1 puff RBID LANRE Administration Gabapentin 300 mg 04/16/20 21:00 04/17/20 21:27 Gabapentin 300 Mg Capsule PO 300 mg TID LANRE Administration Hydrochlorothiazide 25 mg 04/17/20 09:00 04/17/20 09:07 Hydrochlorothiazide 25 Mg Tablet PO 25 mg DAILY LANRE Administration Lisinopril 20 mg 04/17/20 09:00 04/17/20 09:07 Lisinopril 20 Mg Tablet PO 20 mg DAILY LANRE Administration Metformin HCl 1,000 mg 04/16/20 21:00 04/17/20 21:27 Metformin Hcl 1,000 Mg Tablet PO 1,000 mg BID LANRE Administration Morphine Sulfate 4 mg 04/16/20 12:55 04/16/20 17:50 Morphine Sulfate 4 Mg/Ml Cartridge IVPUSH 4 mg Q3H PRN Administration Pain, Severe (Pain Scale 7-10) Ondansetron HCl 4 mg 04/16/20 12:55 Ondansetron Hcl 4 Mg/2 Ml Vial IVPUSH Q8H PRN Nausea and Vomiting Oxycodone HCl 5 mg 04/16/20 12:55 04/18/20 06:26 Oxycodone Hcl Immed Release 5 Mg Tablet PO 5 mg Q4H PRN Administration Pain, Moderate (Pain Scale 4-6 Sertraline HCl 50 mg 04/17/20 09:00 04/17/20 09:07 Sertraline Hcl 50 Mg Tablet PO 50 mg DAILY LANRE Administration Temazepam 15 mg 04/16/20 12:55 04/17/20 21:27 Temazepam 15 Mg Capsule PO 15 mg BEDTIME PRN Administration Insomnia Vitamin D 25 mcg 04/17/20 09:00 04/17/20 09:07 Cholecalciferol (Vitamin D3) 25 Mcg Tablet PO 25 mcg DAILY LANRE Administration <Tiarra Lr PA-C - Last Filed: 04/18/20 08:17> Time Spent With Patient Time: Total time spent is greater than 50% in coordination of care (as documented) at patient's floor/unit and/or counseling patient: <Tiarra Lr PA-C - Last Filed: 04/18/20 08:17> Time with patient: 15 - 24 minutes <Tiarra Lr PA-C - Last Filed: 04/18/20 08:17>
--- NOTE | 2020-04-18 08:12 | PM.PNGS ---
Subjective Subjective Interval history: Teri reports feeling well with no significant chest or arm pain. She has good range of motion in the arm and denies any arm swelling. She is eager to go home today. Physical Exam Vital Signs: Vital Signs: Vital Signs Temp Pulse Resp BP Pulse Ox 04/18/20 07:53 98.3 F 85 17 131/71 96 04/18/20 00:38 96.8 F 82 16 112/49 L 97 04/17/20 19:31 97.1 F 68 19 115/74 97 04/17/20 15:34 97.4 F 76 17 109/61 95 Body Mass Index 32.5 Const: Other: Awake and alert, no acute distress Chest: Other: left chest wounds are clean and intact with intact dressings. [place] drain x2 intact draining serosanguineous discharge. Resp: Other: Breathing comfortably on room air , no respiratory distress Skin: Other: warm, dry, no rash Progress Note: A&P Assessment and plan (1) History of modified radical mastectomy of left breast: Status: Acute Assessment and Plan: Teri is doing great today with minimal chest symptoms at this time. The HERVE drains continued produced serosanguineous discharge therefore will need to be left in place. I will monitor the output and removed as an outpatient. Patient will be discharged home and follow up in the office in approximately 1 week. She was encouraged to call for any problems. Fall Risk Details Current Medications: Current Medications Generic Name Dose Route Start Last Admin Trade Name Freq PRN Reason Stop Dose Admin Acetaminophen 650 mg 04/16/20 12:55 04/16/20 13:32 Acetaminophen 325 Mg Tablet PO 650 mg Q6H PRN Administration Pain, Mild (Pain Scale 1-3) Albuterol Sulfate 2 puff 04/16/20 20:47 Albuterol Sulfate 90 Mcg 18 Gm Inhaler INHALE QID PRN Shortness Of Breath Atorvastatin Calcium 10 mg 04/16/20 21:00 04/17/20 21:26 Atorvastatin Calcium 10 Mg Tablet PO 10 mg BEDTIME LANRE Administration Cyanocobalamin 500 mcg 04/17/20 09:00 04/17/20 09:07 Cyanocobalamin (Vitamin B-12) 500 Mcg Tablet PO 500 mcg DAILY LANRE Administration Docusate Sodium 100 mg 04/17/20 21:00 04/17/20 21:27 Docusate Sodium 100 Mg Capsule PO 100 mg BID LANRE Administration Fentanyl 50 mcg 04/16/20 11:36 04/16/20 13:40 Fentanyl Citrate/Pf 100 Mcg/2 Ml Vial IVPUSH 50 mcg Q5M PRN Administration Pain, Severe (Pain Scale 7-10) Fluticasone Propionate 1 puff 04/17/20 08:00 04/18/20 08:05 Fluticasone Propionate 100 Mcg Blst.W.Dev INHALE 1 puff RBID LANRE Administration Gabapentin 300 mg 04/16/20 21:00 04/17/20 21:27 Gabapentin 300 Mg Capsule PO 300 mg TID LANRE Administration Hydrochlorothiazide 25 mg 04/17/20 09:00 04/17/20 09:07 Hydrochlorothiazide 25 Mg Tablet PO 25 mg DAILY LANRE Administration Lisinopril 20 mg 04/17/20 09:00 04/17/20 09:07 Lisinopril 20 Mg Tablet PO 20 mg DAILY LANRE Administration Metformin HCl 1,000 mg 04/16/20 21:00 04/17/20 21:27 Metformin Hcl 1,000 Mg Tablet PO 1,000 mg BID LANRE Administration Morphine Sulfate 4 mg 04/16/20 12:55 04/16/20 17:50 Morphine Sulfate 4 Mg/Ml Cartridge IVPUSH 4 mg Q3H PRN Administration Pain, Severe (Pain Scale 7-10) Ondansetron HCl 4 mg 04/16/20 12:55 Ondansetron Hcl 4 Mg/2 Ml Vial IVPUSH Q8H PRN Nausea and Vomiting Oxycodone HCl 5 mg 04/16/20 12:55 04/18/20 06:26 Oxycodone Hcl Immed Release 5 Mg Tablet PO 5 mg Q4H PRN Administration Pain, Moderate (Pain Scale 4-6 Sertraline HCl 50 mg 04/17/20 09:00 04/17/20 09:07 Sertraline Hcl 50 Mg Tablet PO 50 mg DAILY LANRE Administration Temazepam 15 mg 04/16/20 12:55 04/17/20 21:27 Temazepam 15 Mg Capsule PO 15 mg BEDTIME PRN Administration Insomnia Vitamin D 25 mcg 04/17/20 09:00 04/17/20 09:07 Cholecalciferol (Vitamin D3) 25 Mcg Tablet PO 25 mcg DAILY LANRE Administration Time Spent With Patient Time: Total time spent is greater than 50% in coordination of care (as documented) at patient's floor/unit and/or counseling patient: Time with patient: 15 - 24 minutes
[2020-04-18] MEDS: Gabapentin 300 MG CAPSULE PO (09:06)
[2020-04-18] MEDS: Cholecalciferol (Vitamin D3) 25 MCG TABLET PO (09:06)
[2020-04-18] MEDS: metFORMIN HCl 1,000 MG TABLET 1000 MG PO (09:06)
[2020-04-18] MEDS: hydroCHLOROthiazide 25 MG TABLET PO (09:06)
[2020-04-18] MEDS: Cyanocobalamin (Vitamin B-12) 500 MCG TABLET PO (09:06)
[2020-04-18] MEDS: lisinopriL 20 MG TABLET PO (09:06)
[2020-04-18] MEDS: Sertraline HCL 50 MG TABLET PO (09:06)
[2020-04-18] MEDS: Docusate Sodium 100 MG CAPSULE PO (09:06)
--- NOTE | 2020-04-18 09:18 | P.DS_ITS ---
DS: Providers Provider Date of admission: 04/16/20 08:16 Primary care physician: Julieth Pérez MD Consults: 04/16/20 13:00 Consult to Physician Routine Consulting Provider: Hospitalist Reason for consultation: Left breast ca, diabetes, medical management Has provider been notified: No DS: Diagnosis Discharge Diagnosis (1) History of modified radical mastectomy of left breast: Status: Acute (2) Invasive ductal carcinoma of left breast: Status: Acute (3) Diabetes: Status: Acute Problem details: NIDDM (4) Hypertension: Status: Acute DS: Summary Hospital Course Hospital Course: Brief HPI: 70-year-old female patient presenting with a palpable mass in the left breast at the upper outer quadrant. Subsequent core biopsy under radiologic guidance revealed an invasive ductal carcinoma. On examination the patient has an approximately 5 cm tumor in the upper outer quadrant with overlying skin changes including skin redness suggestive of tumor infiltration. The tumor is fixed to the skin but not chest wall. Treatment options were di scussed with the patient including modified radical mastectomy, or neoadjuvant chemo/radiation and lumpectomy. The patient elected to proceed with mastectomy and now presents for the procedure. On 04/16/20, a left modified radical mastectomy was performed by Dr. Ziggy Estrada. A 5 cm tumor in the upper outer quadrant of the left breast with fixation to the skin. Several enlarged lymph nodes were palpable in the axilla. Two lowell obrien drains were placed intraoperatively. The patient was admitted to the medical/surgical floor for recovery. A hospitalist consult was obtained for management of her medical comorbidities. The patient had an uncomplicated recovery course. Her incisional/axillary pain was controlled with PRN analgesics and just PO analgesics on the day of discharge. She was tolerating a solid diet without N/V. She was ambulating without difficulty. Her vitals were stable and labs WNL. Her mastectomy site was clean without erythema, the HERVE drains output remained high but became more serosanguineous and were kept in place. The patient felt ready for discharge on POD #2. She was discharged to home on 04/18/20 with VNA services. She has a follow up appointment with Dr. Estrada in the office. Time Spent with Patient Time attestation: Total time spent providing and/or coordinating discharge servi naif: Physical Exam Vital Signs: Vital Signs: Vital Signs Temp Pulse Resp BP Pulse Ox 10/28/20 07:53 98.3 F 85 17 131/71 96 04/18/20 00:38 96.8 F 82 16 112/49 L 97 04/17/20 19:31 97.1 F 68 19 115/74 97 04/17/20 15:34 97.4 F 76 17 109/61 95 Body Mass Index 32.5 Const: General: comfortable, no acute distress and alert Orientation/consciousness: patient oriented x3 Eyes: Sclerae: sclerae normal Chest: Other: left mastectomy site clean, no erythema, incision intact, HERVE drains with serosanguineous drainage, axilla > breast Resp: Effort & Inspection: normal respiratory effort Cardio: Rate: regular rate GI: Inspection: Yes normal to inspection Palpation (GI): Soft to palpation Skin: General skin exam: no rashes or lesions noted Neuro: General: patient oriented x3 Extrem: General: Yes no clubbing, cyanosis or edema DS: Data Data Completed and Pending Pending studies at discharge: Pending at discharge 04/16/20 12:29 Surgical [PTH] Routine Labs on day of discharge: Labs from last 24 hours 04/18/20 05:44 WBC 7.8 RBC 4.62 Hgb 12.9 Hct 40.4 MCV 87.4 MCH 27.9 MCHC 31.9 RDW 12.8 Plt Count 304 MPV 9.7 Immature Gran % (Auto) 0.1 Neut % (Auto) 49.4 Lymph % (Auto) 40.7 H [place] % (Auto) 7.7 Eos % (Auto) 1.5 Baso % (Auto) 0.6 Lymph # (Auto) 3.2 [place] # (Auto) 0.6 Eos # (Auto) 0.1 Baso # (Auto) 0.1 Abs Immat Gran (auto) 0.01 Absolute Neuts (auto) 3.8 Absolute Nucleated RBC 0.000 Nucleated RBC % (auto) 0.0 Discharge Plan Discharge Anticipated Discharge Date/Time: 04/18/20 12:00 Patient Disposition: Home Health Service Referrals: [facility] [Outside] Julieth Pérez MD [Primary Care Provider] - Altagracia Becker MD [Physician] - (Call for appointment) Ziggy Estrada MD [Physician] - 04/24/20 Discharge Medications: New oxycodone 5 mg tablet 5 mg PO Q4H PRN (Reason: pain (scale score 7-10)) Qty: 26 RF: 0 Continued atorvastatin 10 mg Tablet 10 mg PO BEDTIME RF: 0 gabapentin 300 mg Capsule 300 mg PO TID RF: 0 carboxymethylcellulose sodium 1 % Drops, Liquid Gel 2 drp OPHTHALMIC (EYE) BID PRN (Reason: Dry Eyes) RF: 0 cyanocobalamin (vitamin B-12) [Vitamin B-12] 500 mcg tablet 500 mcg PO DAILY RF: 0 cholecalciferol (vitamin D3) 25 mcg (1,000 unit) capsule 25 mcg PO DAILY RF: 0 sertraline 50 mg tablet 50 mg PO DAILY RF: 0 omega-3 fatty acids 1,000 mg capsule 1,000 mg PO DAILY RF: 0 aspirin 81 mg tablet,delayed release (DR/EC) 81 mg PO DAILY RF: 0 albuterol sulfate [ProAir HFA] 90 mcg/actuation HFA aerosol inhaler 2 puff inhalation QID PRN (Reason: Shortness Of Breath) RF: 0 Qvar RediHaler 80 mcg/actuation HFA aerosol breath activated 1 inh inhalation BID RF: 0 metformin 1,000 mg tablet 1,000 mg PO BID RF: 0 tramadol 50 mg tablet 50 mg PO BID PRN (Reason: Pain) RF: 0 lisinopril-hydrochlorothiazide 20-25 mg tablet 1 tab PO DAILY RF: 0 acetaminophen [Pain Relief (acetaminophen)] 650 mg tablet extended release 650 mg PO DIRECTED PRN (Reason: Pain) RF: 0 Discharge Orders: Discharge Order (Routine); Ordered 04/18/20 Ordered By: Tiarra Lr Diet: diabetic diet Activity on Discharge: No heavy lifting Patient Instructions: Mastectomy (DC) Print Language: German Activity Restrictions/Additional Instructions: If the incision area is tender, you may apply an ice pack for short intervals (No more than 20 minutes on, followed by at least 20 minutes off). Do not apply heat. Do not use creams, lotions, or topical antibiotics unless instructed to do so by your surgeon. These can cause infection or allergic reaction. Ok to shower. Can remove dressings 04/20/20 and leave mastectomy dressing off. You have steri strips (small white cloth strips) on your incision and these will fall off ~1 week. Drain care- empty q8-12h and PRN. Record output. Change dressing every other day and PRN. No heavy lifting with left arm for 2-3 weeks. Call Your Doctor If: -Your temperature exceeds 101.5? F -You experience excessive pain or swelling -You have an unexpected reaction to medication -You have excessive bleeding -You experience continued vomiting/nausea -Your incision begins to separate -Your incision shows signs of infection such as increased redness, swelling, excessive pain, drainage (light blood or clear fluid is normal) or heat Visit Report Forms: Patient Portal Discharge page Care Plan Goals: Return to baseline activity. Health Concerns: Left invasive ductal CA, s/p modified radical left mastectomy Plan of Treatment: Pain control, drain care, discharge to home with f/u in office
--- NOTE | 2020-04-18 16:06 | P.PNIM_ITS ---
Subjective Subjective Interval History: patient offers no acute complaints has good pain control, tolerating by mouth, no nausea , no vomiting, no diarrhea. no acute issues overnight General no headache no dizziness no fever chills. CVS no chest pain, no palpitation. Respiratory no cough, no respiratory distress. Gastrointestinal no nausea, no vomiting, no abdominal pain Physical Exam Vital Signs: Vital Signs: Vital Signs Temp Pulse Resp BP Pulse Ox 04/18/20 07:53 98.3 F 85 17 131/71 96 04/18/20 00:38 96.8 F 82 16 112/49 L 97 04/17/20 19:31 97.1 F 68 19 115/74 97 Body Mass Index 32.5 General patient resting comfortably in no acute distress. Neck is supple no JVD. CVS regular rate rhythm, Chest compression dressing in place, with 2 HERVE drain with serosanguineous drainage Respiratory lungs clear to auscultation, no respiratory distress. Gastrointestinal abdomen soft, nontender, bowel sounds audible, no guarding , no rigidity. Extremities no edema. Neuro nonfocal patient moving all 4 extremity speech clear. Skin no rash Objective Data Labs CBC & Chem 7: 04/18/20 05:44 04/17/20 05:27 Assessment and Plan (1) Hypertension: Status: Acute (2) Diabetes: Problem details: NIDDM Status: Acute (3) Dyslipidemia: Status: Acute (4) Depression: Status: Acute (5) Invasive ductal carcinoma of left breast: Status: Acute (6) History of modified radical mastectomy of left breast: Status: Acute Assessment and Plan: 70-year-old woman admitted by General surgery for an elective left breast mastectomy Left breast mastectomy. Management per surgical team. good pain control , patient scheduled for discharge today by General surgery, recommend to take fluids continue incentive spirometry and pain medication. Diabetes mellitus. Blood sugars stable recommend to continue home medications and diabetic diet. Hypertension. Stable blood pressure. Continue home medications hydr ochlorothiazide and lisinopril. Hyperlipidemia. Continue statin. LDL 52 Depression. no acute decompensated,Continue home medications. DVT prophylaxis with compression boots per surgical team.
== END 2020-04-18 10:38 | disposition home health service (06) | DRG 583 ==
LOC: HO.SSSA 08:43 → HO.S3 15:31 → HO.IMC 17:04 → HO.S3 19:19
PROVIDERS: Nurse Practitioner; Physician Assistant Surgical; Admitting Provider Surgery; PCP Internal Medicine; Visit Provider Surgery
PROC: 0HTU0ZZ Resection of Left Breast, Open Approach (ICD-10-PCS; CPT 19307; principal; 2020-04-16 10:20)
DX: C50.912 Malignant neoplasm of unspecified site of left female breast (principal); F32.9 Major depressive disorder, single episode, unspecified; Z20.828 Contact with and (suspected) exposure to other viral communicable diseases; E78.5 Hyperlipidemia, unspecified; Z79.82 Long term (current) use of aspirin; Z79.84 Long term (current) use of oral hypoglycemic drugs; Z79.891 Long term (current) use of opiate analgesic; Z79.899 Other long term (current) drug therapy
CPT/HCPCS: 36415; 80048; 82947; 85025; 87635; 88307; 88309; 88360; 88377; 99024; J0131; J0690; J1100; J2270; J2405; J3010

== ENCOUNTER → 2020-04-24 10:39 | Outpatient (BNVA) | payer MEDICARE, MEDICAID, SELFPAY | PROVIDERS: PCP Internal Medicine; Visit Provider Surgery | DX: C50.912 Malignant neoplasm of unspecified site of left female breast (principal); E11.9 Type 2 diabetes mellitus without complications; I10 Essential (primary) hypertension; E78.5 Hyperlipidemia, unspecified; E66.9 Obesity, unspecified; Z90.12 Acquired absence of left breast and nipple; Z88.8 Allergy status to other drugs, medicaments and biological substances; Z91.041 Radiographic dye allergy status; Z79.84 Long term (current) use of oral hypoglycemic drugs; Z79.899 Other long term (current) drug therapy | CPT/HCPCS: 99212 ==

== ENCOUNTER → 2020-05-02 10:12 | Outpatient (BNVA) | payer MEDICARE, MEDICAID, SELFPAY | PROVIDERS: PCP Internal Medicine; Visit Provider Surgery | DX: Z48.3 Aftercare following surgery for neoplasm (principal); C50.412 Malignant neoplasm of upper-outer quadrant of left female breast; Z48.03 Encounter for change or removal of drains; Z90.12 Acquired absence of left breast and nipple | CPT/HCPCS: 99212 ==

== ENCOUNTER → 2020-05-04 10:04 | Outpatient (BNV) | payer MEDICARE, OTHER, MEDICAID, SELFPAY | PROVIDERS: PCP Internal Medicine; Referring Provider Surgery; Visit Provider Internal Medicine | DX: Z85.3 Personal history of malignant neoplasm of breast (principal); Z90.12 Acquired absence of left breast and nipple; I97.2 Postmastectomy lymphedema syndrome; K76.0 Fatty (change of) liver, not elsewhere classified | CPT/HCPCS: 99204; 99213; 99214; G2211 ==

== ENCOUNTER → 2020-05-11 07:30 | Outpatient (REF) | payer MEDICARE, MEDICAID, SELFPAY ==
--- NOTE | 2020-05-11 07:35 | CA_ITS ---
Transthoracic Echocardiogram Patient (Last, First, Middle): Teri Ambriz, Gender: Female Date of : 1950 Age: 70 Procedure Date: 05/11/2020 Procedure Type: Transthoracic Echocardiogram Location: OP Height: 167.64 cm Weight: 89.81 kg BSA: 1.99 m2 Heart Rate: bpm BP: 129 / 72 mmHg Office Nurse Practitioner: Referring MD: Altagracia Becker MD Symptoms: prechemo evaluation Study Quality: Fair ECG Rhythm: Sinus Conclusions: - The left ventricular systolic function is normal. The visually estimated ejection fraction is between 55-60%. - No obvious valvular pathology seen on this study. Findings Left Ventricle Normal left ventricular cavity size. There is mildly increased left ventricular wall thickness. The left ventricular systolic function is normal. The visually estimated ejection fraction is between 55-60%. There is no evidence of regional wall motion abnormalities. E/E prime ratio is between 8 and 15 consistent with indeterminate filling pressures. Evidence suggests grade I (mild) diastolic dysfunction. LV global endocardial peak longitudinal strain -16.8% (normal). Right Ventricle Normal right ventricular cavity size and systolic function. Aortic Valve There is a normal trileaflet aortic valve. There is no aortic valve stenosis. There is no aortic valve regurgitation. Mitral Valve The mitral valve appears normal. There is trace mitral valve regurgitation. There is no mitral valve stenosis. Pulmonic Valve The pulmonic valve was not well visualized. Tricuspid Valve Normal tricuspid valve structure. There is trace tricuspid valve regurgitation. The pulmonary artery systolic pressure is normal. Great Vessels The aortic annulus, sinuses of valsalva, asc aorta, and aortic arch are normal in size. Venous The inferior vena cava is normal in size and collapses greater than 50% with inspiration. Pericardium/Pleural There is no evidence of pericardial effusion. Prior Study Comparison No significant change compared to prior study dated: 07/16/2011. Recommendations, Care & Conclusions No obvious valvular pathology seen on this study. Measurements 2D Linear Measurements IVSd: 1.25 0.6-0.9/0.6-1.0 cm LVIDd: 3.74 3.9-5.3/4.2-5.9 cm LVIDd Index: 1.88 2.4-3.2/2.2-3.1 cm/m2 LVIDs: 2.40 2.0-3.6 cm LVPWd: 1.36 0.7-1.1 cm Ao Root: 2.80 2.1-3.5 cm LA Diam: 2.90 2.7-3.8/3.0-4.0 cm LAIDs Index: 1.46 1.5-2.3 cm/m2 LV Mass: 211.88 67-162/88-224 g LV Mass Index: 106.47 43-95/49-115 g/m2 LVOT Diam: 1.90 3.0+(-)1.3 cm 2D Systolic Function EF 4C: 53.50 >55% EF 2C: 54.60 >55% EF BiP: 55.30 >55% Mitral Valve MV Pk E: 0.55 MV PK A: 0.72 MV Decel Time: 208.00 E/A: 0.80 E'Lateral: 7.25 E'Medial: 5.13 E/E' Med: 10.80 E/E' Lat: 7.60 PHT: 61.00 MVA PHT: 3.61 Decel [place]: 2.66 Aortic Valve AoV Pk Barry: 1.19 AoV Pk Grad: 6.00 LVOT LVOT Pk Barry: 0.87 LVOT Mn Barry: 0.55 LVOT VTI: 0.17 LVOT Pk Grad: 3.00 LVOT Mn Grad: 2.00 LVOT Diam: 1.90 LVOT Area: 2.84 Diastolic Function MV Pk E: 0.55 MV Pk A: 0.72 E/A: 0.80 E'Medial: 5.13 E/E' Med: 10.80 E' Laterial: 7.25 E/E' Lat: 7.60 Tricuspid Valve TR Pk Barry: 1.91 TR Pk Grad: 15.00 Great Vessels Aorta Ao Root-2D: 2.80 2.0-3.7 cm Ao Asc: 3.20 2.1-3.4 cm Ao Arch: 2.60 Updated in Other Vendor System with Status of Final Israel Reyes MD electronically signed on 05/13/2020 10:28:11 AM with status of Final
== END ==
LOC: HO.CARD 07:30
PROVIDERS: Visit Provider Internal Medicine
DX: Z01.818 Encounter for other preprocedural examination (principal); C50.912 Malignant neoplasm of unspecified site of left female breast
CPT/HCPCS: 93306; 93356

== ENCOUNTER 2020-05-24 08:39 | Day surgery (SDC) | payer MEDICARE, MEDICAID, SELFPAY ==
--- NOTE | 2020-05-22 17:29 | MHC.HEMONC ---
Adrianne Ennis from radiology scheduling told Mgr. Tamica to call pt to let her know r/s from 830am to arrive 1030am in [facility]. Pt notified, by this NN, but was concerned as she stated the appt has been moved numerous times. She agreed to this POC.
[2020-05-24 08:52] LABS: Glucose, Whole Blood 99 mg/dL (60-115)
[2020-05-24 09:06] LABS: Basophils Absolute Auto 0.1 X10*3/uL (0.0-0.2); Basophils Percent Auto 0.8 % (0-2); Eosinophils Absolute Auto 0.1 X10*3/uL (0.0-0.4); Eosinophils Percent Auto 1.5 % (0-4); Hematocrit 42.4 % (37-47); Imm Gran Abs Auto 0.02 X10*3/uL (0.00-0.03); Imm Gran Pct Auto 0.3 % (0.0-0.4); Lymphocytes Absolute Auto 2.7 X10*3/uL (1.2-4.9); Lymphocytes Percent Auto 44.8 % (20-40); MANUAL DIFF FLAG NO; Mean Corpuscular Hemoglobin 28.2 pg (27.0-33.0); Mean Corpuscular Volume 85.3 fL (80-98); Mean Platelet Volume 9.1 fL (9.4-12.3); Monocytes Absolute Auto 0.7 X10*3/uL (0.1-1.2); Monocytes Percent Auto 10.7 % (2-11); Neutrophils Absolute Auto 2.6 X10*3/uL (2.0-8.3); Neutrophils Percent Auto 41.9 % (45-73); Platelet Count 343 X10*3/uL (160-400); Red Blood Count 4.97 X10*6/uL (4.20-5.50); White Blood Count 6.1 X10*3/uL (4.8-10.8)
[2020-05-24 09:13] LABS: Prothrombin Time 12.2 SEC (10.8-13.0)
[2020-05-24 09:16] LABS: Partial Thromboplastin Time 43.6 SEC (24.1-38.0)
[2020-05-24 09:46] VITALS: BMI 31.9
--- NOTE | 2020-05-24 10:13 | IR_ITS ---
PROCEDURE: IR INSERTION OF TUNNEL CATHETER CLINICAL INFORMATION: Port insertion for chemotherapy. COMPARISON: None TECHNIQUE: Ultrasound and fluoroscopic-guided placement of 6.6 Canadian Dignity port from a right internal jugular approach. All elements of maximal sterile barrier technique followed including use of cap, mask, sterile gown, sterile gloves, a sterile full body drape and hand hygiene. Also followed skin preparation with 2% chlorhexidine for cutaneous antisepsis, and sterile ultrasound preparation with sterile gel and probe cover when applicable. FINDINGS: Informed consent was obtained from the patient prior to the procedure. During this process, the procedure and potential alternatives were explained, along with the intended outcome and benefits. The risks of the procedure, as well as the risk of not doing the procedure, were discussed. The patient was given the opportunity to ask questions regarding the procedure and appeared competent to make medical decisions. A signed consent form which documents this discussion was placed in the medical record. Ultrasound examination of the right neck was performed and demonstrated a patent internal jugular vein. An ultrasound image was sent to PACS. Using sterile technique and ultrasound guidance a needle was placed into the right jugular vein and guidewire advanced down into the right atrium. An introducer sheath was then placed over the wire and through this a guidewire was placed down into the inferior vena cava. Attention was then turned to creating a port pocket in the superior anterior right chest wall. After lidocaine administration a transverse incision was made and a port pocket blunt dissected out. The 6.6 Canadian catheter was then tunneled from the port pocket to the internal jugular puncture site. Following fascial dilatation over guidewire using a peel-away sheath the catheter was placed with its tip in the superior right atrium. The catheter was then trimmed to length and attached to the port reservoir. The port aspirated and flushed easily and was flushed with heparin lock solution. The port was then sutured into the port pocket with 2-0 monofilament suture. The port pocket was then closed with a 4-0 absorbable running stitch. The skin incision was then closed with Dermabond and Dermabond was placed on the internal jugular puncture site. Patient tolerated the procedure without difficulty. IR/IR cvc insert tunnel w prt/gaming cage worker IMPRESSION: Placement of right internal jugular 6.6 Canadian Dignity PowerPort with tip of catheter in the superior right atrium. 70 minutes of sedation. DAP: 211 cGy per centimeter squared. 1.5 minutes fluoroscopy.
[2020-05-24 12:36] VITALS: BP 120/63; PULSE 79; RESP 16; TEMP 36.7; O2SAT 98
[2020-05-24 13:09] VITALS: BP 127/64; PULSE 81; RESP 16
== END 2020-05-24 14:35 | disposition home or self-care (01) ==
PROVIDERS: Radiology Diagnostic Radiology; PCP Internal Medicine; Visit Provider Radiology Diagnostic Radiology
DX: C50.912 Malignant neoplasm of unspecified site of left female breast (principal)
CPT/HCPCS: 36415; 36561; 76937; 82947; 85025; 85610; 85730; 99152; 99153; C1769; C1788; J0690; J1642; J2250; J3010

== ENCOUNTER → 2020-06-01 10:34 | Outpatient (BNVA) | payer MEDICARE, MEDICAID, SELFPAY | PROVIDERS: PCP Internal Medicine; Visit Provider Surgery | DX: C50.912 Malignant neoplasm of unspecified site of left female breast (principal); Z90.12 Acquired absence of left breast and nipple | CPT/HCPCS: 99212 ==

== ENCOUNTER 2020-07-24 08:37 | Outpatient (REF) | payer MEDICARE, MEDICAID, SELFPAY | END 2020-07-24 08:38 | disposition home or self-care (01) | LOC: HO.MAMMO 08:37 | PROVIDERS: PCP Internal Medicine; Visit Provider Internal Medicine | DX: Z13.89 Encounter for screening for other disorder (principal) ==

== ENCOUNTER → 2020-08-08 14:31 | Outpatient (BNVA) | payer MEDICARE, MEDICAID, SELFPAY | PROVIDERS: Visit Provider Student in an Organized Health Care Education/Training Program | DX: M89.49 Other hypertrophic osteoarthropathy, multiple sites (principal) | CPT/HCPCS: 99212 ==

== ENCOUNTER → 2020-08-31 10:13 | Outpatient (BNVA) | payer MEDICARE, MEDICAID, SELFPAY | PROVIDERS: PCP Internal Medicine; Visit Provider Surgery | DX: C50.912 Malignant neoplasm of unspecified site of left female breast (principal) | CPT/HCPCS: 99212 ==

== ENCOUNTER 2020-09-13 13:33 | Outpatient (REF) | payer MEDICARE, MEDICAID, SELFPAY ==
[2020-09-13 14:05] LABS: MANUAL DIFF FLAG NO
[2020-09-13 14:08] LABS: Basophils Absolute Auto 0.1 X10*3/uL (0.0-0.2); Basophils Percent Auto 1.1 % (0-2); Eosinophils Percent Auto 0.2 % (0-4); Hematocrit 38.4 % (37-47); Imm Gran Abs Auto 0.04 X10*3/uL (0.00-0.03); Imm Gran Pct Auto 0.6 % (0.0-0.4); Lymphocytes Percent Auto 31.2 % (20-40); Mean Corpuscular HGB Conc 33.9 g/dl (31.0-35.0); Mean Corpuscular Hemoglobin 29.5 pg (27.0-33.0); Mean Corpuscular Volume 87.3 fL (80-98); Mean Platelet Volume 10.3 fL (9.4-12.3); Monocytes Percent Auto 14.6 % (2-11); NRBC Pct Auto 0.3 /100WBC (0.0-0.2); Neutrophils Absolute Auto 3.4 X10*3/uL (2.0-8.3); Neutrophils Percent Auto 52.3 % (45-73); Platelet Count 179 X10*3/uL (160-400); Red Cell Distribution Width 14.8 % (11.0-16.0); White Blood Count 6.5 X10*3/uL (4.8-10.8)
[2020-09-13 14:31] LABS: Estimated Average Glucose 151 mg/dL; Hemoglobin A1c % 6.9 %
[2020-09-13 14:40] LABS: Alanine Aminotransferase 63 U/L (0-31); Albumin Level 3.8 g/dL (3.5-5.0); Alkaline Phosphatase 149 U/L (39-117); Anion Gap 15 (12-20); Aspartate Amino Transferase 73 U/L (5-31); Bilirubin Total 0.4 mg/dL (0.0-1.0); Blood Urea Nitrogen 9 mg/dL (9-16); Calcium 9.1 mg/dL (8.4-10.2); Carbon Dioxide 31 mmol/L (22-29); Chloride 91 mmol/L (96-108); Cholesterol 172 mg/dL; Estimated Glomerular Filt Rate > 60; Glucose Random 132 mg/dL (60-115); HDL Cholesterol 35 mg/dL; Potassium 3.7 mmol/L (3.3-5.1); Sodium 133 mmol/L (135-145); Total Protein 7.1 g/dL (6.5-8.0); Triglycerides 411 mg/dL
[2020-09-13 14:50] LABS: Creatinine Urine 58.74 mg/dL; Microalbumin Urine < 5.0 mg/L
== END 2020-09-13 13:34 | disposition home or self-care (01) ==
LOC: HO.LAB 13:33
PROVIDERS: PCP Internal Medicine; Visit Provider Internal Medicine
DX: C50.912 Malignant neoplasm of unspecified site of left female breast (principal); E11.40 Type 2 diabetes mellitus with diabetic neuropathy, unspecified; E78.2 Mixed hyperlipidemia; I10 Essential (primary) hypertension
CPT/HCPCS: 36415; 80053; 80061; 82043; 83036; 85025

== ENCOUNTER → 2020-09-20 14:01 | Outpatient (BNVA) | payer MEDICARE, MEDICAID, SELFPAY | PROVIDERS: PCP Internal Medicine; Referring Provider Internal Medicine; Visit Provider Dietitian, Registered | DX: E11.9 Type 2 diabetes mellitus without complications (principal) | CPT/HCPCS: 97803 ==

== ENCOUNTER 2020-11-28 12:34 | Outpatient (RCR) | payer MEDICARE, MEDICAID, SELFPAY ==
--- NOTE | 2020-11-28 16:54 | MHC.OT.OEV ---
[address] [phone] F: [phone] Occupational Therapy Evaluation Diagnosis: Left upper extremity lymphedema Date of Onset: 11/07/20 Date of Surgery: 04/16/20 Attending Provider: Prescribed Treatment: Eval and treat MD Follow Up Appointment: History of Current Condition: Pt reports a 3 wk ho left arm and hand swelling with out pain Pt referred to OT for lymphedema Significant Medical History: Left breast ca, DM type 2, AO Precautions/Contraindications: Lymphedema Patient Goals: Improve the swelling Hand Dominance: Left Observations: QuickDASH Score: Prior Level of Function and Occupation Self Care, Employment, Leisure: reports indep in all areas. Retired since 2010 due to back pain Likes to read Living Situation, Family and/or Social Support: Lives with daughter Current Level of Function and Occupation Self Care, Employment, Leisure: Daughter helps with bathing and all ADL except self feeding Sleep: Driving: Vision: Balance: Pain Assessment Pain Score: 7 Pain Scale Used: Numeric (0 - 10) Pain Location and Description: Left upper extremity fingers only Aggravating Factors: multiple questions . Pt unable to answer specific question and does not report aggravating factor Alleviating Factors: Improves some with cream for Dr. Becker Skin and Soft Tissue Assessment Skin and Soft Tissue: Nail Changes Comments: See form Nerve assessment Ulnar Nerve: Median Nerve: Radial Nerve: Comments: Sensory Assessment Temperature: Light Touch: Proprioception: Vibration: Comments: Edema Assessment Upper Extremity: Left Impaired Lower Extremity: Comments: LUE with pitting edema . See edema form Dexterity Assessment Dexterity: Left Impaired Comments: Special Tests Comments: AROM(PROM) Strength Cervical Cervical Flexion: Cervical Extension: Cervical Lateral Flexion: Cervical Rotation: Comments: Shoulder Flexion: 130 Extension: Abduction: Internal Rotation: External Rotation: Comments: WFL Flexion: Extension: Abduction: Internal Rotation: External Rotation: Comments: Elbow Flexion: 120 Extension: Pronation: Supination: Comments: WFL Flexion: Extension: Pronation: Supination: Comments: Wrist Flexion: 30 deg Extension: 60 deg Ulnar Deviation: Radial Deviation: Comments: Flexion: Extension: Ulnar Deviation: Radial Deviation: Comments: Thumb Thumb CMC Flexion: Thumb MCP Flexion: Thumb IP Flexion: Radial Abduction: Palmar Abduction: [place] (Kapandji 0-10): Comments: WFL Digits Index MCP: PIP: DIP: Long MCP: PIP: DIP: Ring MCP: PIP: DIP: Small MCP: PIP: DIP: Comments: ~1 cm to palm d2-5 Gross Grasp: Lateral Pinch: Two-Point Pinch: Three-Jaw Pb: Comments: WFL Patient Education Primary Language: Count Team Clerk Required: Yes Current Knowledge: Minimal, needs reinforcement Teaching Method: Demonstration Verbal Education Needs Identified on Evaluation: ADL's Disease Information Exercise How did patient/family demonstrate learning? Patient verbalizes Barriers to Learning: Other Readiness for Learning: Accepting Who was educated? Patient Comments: Multiple questions required to acquire basic information with utilizing [employer] phone pharmacy informatics manager Plan of Care Assessment: Pt is a 70 yo female with a recent onset of LUE lymphedema seven months s/p left breast surgery due to breast Ca. Today she presents with Grade 1 pitting edema, partial temporary reduced with elevation and light compression , volume moderate Pt previously indep with ADL and light housekeeping now requires the assist of her daughter with ADL due to fatigue with use of her dominant left hand I recommend a velcro closure compression system ie Juxtalite due to anticipated difficulty in self management with bandaging, massage and ther ex to improve lymphatic flow and prevent worsening of lymphedema and lymphedema complications. STG Duration: 2 wks Short Term Goals: Reduce volume of LUE by 25 cm to reduce risk of infection Indep with decongestive ex with assist of family as needed Indep and compliance with compression wrap with assist of family Report understanding of lymphedema/precautions/home ex LTG Duration: Leather Cutter Goals: Reduce volume of LUE by 45 cm to reduce risk of infection Indep with self bandaging and or donning/doffing compression garments Demo indep with self management of lymphedema with assist of family as needed Report understanding of lymphedema precautions and need for compression wrap and compression sleeve replacement every 6 months Frequency and Duration: The patient will be seen 3x wk x 6 wks Treatment Plan: Therapeutic Exercise Therapeutic Activity Home Exercise Program Patient Education Edema Control ADL Training Electronically Signed By: Rubi Michele OT CHT CLT Reviewed/agree with student documentation: N/A Therapist: Please sign and return to therapist, Thank you for your referral.
== END 2021-04-08 15:39 | disposition home or self-care (01) ==
LOC: HO.OT 12:34
PROVIDERS: Visit Provider Internal Medicine
DX: I89.0 Lymphedema, not elsewhere classified (principal)
CPT/HCPCS: 97166

== ENCOUNTER 2021-02-26 09:15 | Outpatient (REF) | payer MEDICARE, MEDICAID, SELFPAY ==
[2021-02-26 10:15] LABS: Estimated Average Glucose 134 mg/dL; Hemoglobin A1c % 6.3 %
[2021-02-26 10:34] LABS: Alanine Aminotransferase 23 U/L (0-31); Albumin Level 3.7 g/dL (3.5-5.0); Alkaline Phosphatase 141 U/L (39-117); Anion Gap 13 (12-20); Aspartate Amino Transferase 25 U/L (5-31); Bilirubin Total 0.4 mg/dL (0.0-1.0); Blood Urea Nitrogen 14 mg/dL (9-16); Calcium 9.9 mg/dL (8.4-10.2); Carbon Dioxide 31 mmol/L (22-29); Chloride 101 mmol/L (96-108); Cholesterol 197 mg/dL; Estimated Glomerular Filt Rate > 60; Glucose Random 115 mg/dL (60-115); HDL Cholesterol 40 mg/dL; LDL Cholesterol Calculated 104 mg/dl; Potassium 4.5 mmol/L (3.3-5.1); Sodium 140 mmol/L (135-145); Total Protein 6.9 g/dL (6.5-8.0); Triglycerides 269 mg/dL
== END 2021-02-26 09:16 | disposition home or self-care (01) ==
LOC: HO.LAB 09:15
PROVIDERS: PCP Internal Medicine; Visit Provider Internal Medicine
DX: E11.9 Type 2 diabetes mellitus without complications (principal); E78.2 Mixed hyperlipidemia; I10 Essential (primary) hypertension
CPT/HCPCS: 36415; 80053; 80061; 83036

== ENCOUNTER 2021-03-14 08:49 | Outpatient (REF) | payer MEDICARE, MEDICAID, SELFPAY ==
--- NOTE | ~2021-03-14 | MM_ITS ---
EXAMINATION: MM SCREENING DIGITAL BREAST TOMOSYNTHESIS, RIGHT CLINICAL INFORMATION: Screening. Asymptomatic. Status post left mastectomy. COMPARISON: Mammography: March 13, 2020 and studies dating back to October 24, 2013 TECHNIQUE: Digital breast tomosynthesis is performed in both the craniocaudal and mediolateral oblique views along with computer-aided detection (CAD). Synthesized 2D images are generated from the tomosynthesis. FINDINGS: There are scattered areas of fibroglandular density (ACR BI-RADS breast composition Category b). There is question of faint linear calcifications about the anterior aspect of the right breast which may be 3-D processing artifact. No suspicious abnormal mass is identified. MM/MM tomosynthesis screening RT IMPRESSION: Question anterior calcifications versus 3-D artifact for which spot magnification views in craniocaudal and 90 degree mediolateral views is recommended. ASSESSMENT: BI-RADS 0: Incomplete - Need Additional Imaging Evaluation RECOMMENDATION: 1. Additional views of the right breast. Spot magnification views. 2. Targeted ultrasound if warranted after review of the additional views. 3. Radiology department staff will contact the patient for additional imaging. This patient's information was entered into a reminder system with a target due date for their next mammogram.
== END 2021-03-14 08:50 | disposition home or self-care (01) ==
LOC: HO.MAMMO 08:49
PROVIDERS: PCP Internal Medicine; Visit Provider Surgery
DX: Z12.31 Encounter for screening mammogram for malignant neoplasm of breast (principal); Z90.12 Acquired absence of left breast and nipple
CPT/HCPCS: 77063; 77067

== ENCOUNTER 2021-03-25 09:30 | Outpatient (REF) | payer MEDICARE, MEDICAID, SELFPAY ==
--- NOTE | ~2021-03-25 | MM_ITS ---
EXAMINATION: MM DIAGNOSTIC DIGITAL MAMMOGRAPHY, RIGHT CLINICAL INFORMATION: Recall from screening for question of fine linear calcifications retroareolar right breast versus pseudo calcifications or digital processing artifact. COMPARISON: Mammography: 03/14/2021, 03/27/2020. TECHNIQUE: Digital mammography is performed in the following views: Magnification CC, magnification ML FINDINGS: There are scattered areas of fibroglandular density (ACR BI-RADS breast composition Category b). The additional views show no grouped or linear distribution calcifications retroareolar right breast. There are a few isolated benign round calcifications as before. Finding on recent synthesized 2-D images at screening are consistent with pseudocalcification from digital processing artifact as suspected. Results are discussed with the patient at time of visit, using an sign language interpreter. MM/MM added views RT IMPRESSION: No significant changes from prior studies. No abnormal calcifications. ASSESSMENT: BI-RADS 2: Benign RECOMMENDATION: Routine annual mammography screening. This patient's information was entered into a reminder system with a target due date for their next mammogram.
== END 2021-03-25 09:31 | disposition home or self-care (01) ==
LOC: HO.MAMMO 09:30
PROVIDERS: PCP Internal Medicine; Visit Provider Surgery
DX: C50.912 Malignant neoplasm of unspecified site of left female breast (principal); Z85.3 Personal history of malignant neoplasm of breast
CPT/HCPCS: 77065

== ENCOUNTER → 2021-03-28 09:05 | Outpatient (BNVA) | payer MEDICARE, MEDICAID, SELFPAY | PROVIDERS: PCP Internal Medicine; Visit Provider Dietitian, Registered | DX: E11.9 Type 2 diabetes mellitus without complications (principal) | CPT/HCPCS: 97803 ==

== ENCOUNTER → 2021-05-07 09:19 | Outpatient (BNVA) | payer MEDICARE, MEDICAID, SELFPAY | PROVIDERS: PCP Internal Medicine; Visit Provider Surgery | DX: C50.912 Malignant neoplasm of unspecified site of left female breast (principal); Z90.12 Acquired absence of left breast and nipple | CPT/HCPCS: 99212 ==

== ENCOUNTER 2021-07-19 08:57 | Outpatient (REF) | payer MEDICARE, MEDICAID, SELFPAY ==
--- NOTE | ~2021-07-19 | US_ITS ---
EXAMINATION: US ABDOMEN COMPLETE CLINICAL INFORMATION: Abnormal LFTs. COMPARISON: Ultrasound abdomen complete 06/29/2019. TECHNIQUE: Real-time imaging of the abdominal viscera. FINDINGS: PANCREAS: Normal. ABDOMINAL AORTA: The proximal, mid, and distal segments are normal in caliber. INFERIOR VENA CAVA: Visualized portions are normal. LIVER: The liver is normal in size. The liver contour is normal. There is increased liver echogenicity. No focal hepatic lesion. There is no intrahepatic biliary duct dilatation seen. GALLBLADDER: The gallbladder is physiologically distended without evidence of stones, polyps, wall thickening or pericholecystic fluid. There is echogenic bile present. COMMON BILE DUCT: Normal in caliber measuring 0.4 cm in diameter. RIGHT KIDNEY: No hydronephrosis or renal calculi. The kidney measures 11.6 cm in maximum dimension. There is an anechoic cyst in the midpole measuring 0.97 x 0.63 x 0.91 cm. LEFT KIDNEY: Normal. No hydronephrosis. No renal calculi or focal parenchymal lesions. The kidney measures 11.0 cm in maximum dimension. SPLEEN: Normal. The spleen measures 8.2 cm in maximum dimension. FREE FLUID: None. US/US abdomen complete IMPRESSION: 1. Mild hepatic steatosis without focal lesion. 2. Echogenic bile but no echogenic stones or wall thickening. 3. Anechoic cyst, midpole right kidney.
== END 2021-07-19 08:58 | disposition home or self-care (01) ==
LOC: HO.HMGCX 08:57
PROVIDERS: PCP Internal Medicine; Visit Provider Internal Medicine
DX: R94.5 Abnormal results of liver function studies (principal)
CPT/HCPCS: 76700

== ENCOUNTER 2021-08-08 08:53 | Outpatient (REF) | payer MEDICARE, MEDICAID, SELFPAY ==
[2021-08-08 11:20] LABS: Estimated Average Glucose 140 mg/dL; Hemoglobin A1c % 6.5 %
[2021-08-08 14:08] LABS: Alanine Aminotransferase 26 U/L (0-31); Alkaline Phosphatase 137 U/L (39-117); Anion Gap 11 (12-20); Aspartate Amino Transferase 26 U/L (5-31); Bilirubin Total 0.3 mg/dL (0.0-1.0); Blood Urea Nitrogen 16 mg/dL (9-16); Calcium 10.1 mg/dL (8.4-10.2); Carbon Dioxide 32 mmol/L (22-29); Chloride 97 mmol/L (96-108); Estimated Glomerular Filt Rate > 60; Glucose Random 89 mg/dL (60-115); Potassium 4.2 mmol/L (3.3-5.1); Sodium 136 mmol/L (135-145); Total Protein 7.7 g/dL (6.5-8.0)
== END 2021-08-08 08:54 | disposition home or self-care (01) ==
LOC: HO.LAB 08:53
PROVIDERS: PCP Internal Medicine; Visit Provider Internal Medicine
DX: E11.9 Type 2 diabetes mellitus without complications (principal); E78.2 Mixed hyperlipidemia; F32.5 Major depressive disorder, single episode, in full remission; H10.10 Acute atopic conjunctivitis, unspecified eye; M89.49 Other hypertrophic osteoarthropathy, multiple sites
CPT/HCPCS: 36415; 80053; 83036; 99212

== ENCOUNTER 2021-08-19 10:33 | Outpatient (REF) | payer MEDICARE, MEDICAID, SELFPAY ==
[2021-08-19 13:18] LABS: Vitamin D 25-OH Total 21.9 ng/mL (>30)
== END 2021-08-19 10:34 | disposition home or self-care (01) ==
LOC: HO.LAB 10:33
PROVIDERS: PCP Internal Medicine; Visit Provider Nurse Practitioner Family
DX: M89.49 Other hypertrophic osteoarthropathy, multiple sites (principal)
CPT/HCPCS: 36415; 82306

== ENCOUNTER → 2021-09-10 09:18 | Outpatient (BNVA) | payer MEDICARE, MEDICAID, SELFPAY | PROVIDERS: PCP Internal Medicine; Visit Provider Dietitian, Registered | DX: E11.9 Type 2 diabetes mellitus without complications (principal) | CPT/HCPCS: 97803 ==

== ENCOUNTER → 2021-11-05 09:50 | Outpatient (BNVA) | payer MEDICARE, MEDICAID, SELFPAY | PROVIDERS: PCP Internal Medicine; Visit Provider Surgery | DX: C50.912 Malignant neoplasm of unspecified site of left female breast (principal); Z90.12 Acquired absence of left breast and nipple | CPT/HCPCS: 99212 ==

== ENCOUNTER 2021-11-21 10:36 | Outpatient (REF) | payer MEDICARE, MEDICAID, SELFPAY ==
[2021-11-21 10:53] LABS: MANUAL DIFF FLAG NO
[2021-11-21 11:24] LABS: Basophils Percent Auto 0.6 % (0-2); Eosinophils Absolute Auto 0.1 X10*3/uL (0.0-0.4); Hematocrit 39.6 % (37.0-47.0); Hemoglobin 13.1 g/dl (12.0-16.0); Imm Gran Abs Auto 0.01 X10*3/uL (0.00-0.03); Imm Gran Pct Auto 0.2 % (0.0-0.4); Lymphocytes Absolute Auto 2.5 X10*3/uL (1.2-4.9); Lymphocytes Percent Auto 45.5 % (20-40); Mean Corpuscular HGB Conc 33.1 g/dl (31.0-35.0); Mean Corpuscular Hemoglobin 27.9 pg (27.0-33.0); Mean Corpuscular Volume 84.4 fL (80.0-98.0); Mean Platelet Volume 9.3 fL (9.4-12.3); Monocytes Absolute Auto 0.7 X10*3/uL (0.1-1.2); Monocytes Percent Auto 12.1 % (2-11); Neutrophils Absolute Auto 2.2 x10*3/uL (2.0-8.3); Neutrophils Percent Auto 39.6 % (45-73); Platelet Count 332 X10*3/uL (160-400); Red Blood Count 4.69 X10*6/uL (4.20-5.50); White Blood Count 5.5 X10*3/uL (4.8-10.8)
[2021-11-21 11:32] LABS: Estimated Average Glucose 134 mg/dL; Hemoglobin A1c % 6.3 %
[2021-11-21 12:00] LABS: Thyroid Stimulating Hormone 0.85 uIU/mL (0.32-4.0)
[2021-11-21 12:09] LABS: Vitamin B12 814 pg/mL (200-900)
[2021-11-21 12:18] LABS: Alanine Aminotransferase 32 U/L (0-31); Albumin Level 3.8 g/dL (3.5-5.0); Alkaline Phosphatase 131 U/L (39-117); Anion Gap 14 (12-20); Aspartate Amino Transferase 29 U/L (5-31); Bilirubin Total 0.3 mg/dL (0.0-1.0); Blood Urea Nitrogen 16 mg/dL (9-16); Carbon Dioxide 31 mmol/L (22-29); Chloride 94 mmol/L (96-108); Cholesterol 177 mg/dL; Estimated Glomerular Filt Rate > 60; Glucose Random 87 mg/dL (60-115); HDL Cholesterol 45 mg/dL; LDL Cholesterol Calculated 87 mg/dl; Potassium 4.5 mmol/L (3.3-5.1); Sodium 134 mmol/L (135-145); Total Protein 7.6 g/dL (6.5-8.0); Triglycerides 225 mg/dL
[2021-11-21 13:31] LABS: Creatinine Urine 163.51 mg/dL; Microalbum/Creatinine Ratio Ur 3.6 ug/mg cr
== END 2021-11-21 10:37 | disposition home or self-care (01) ==
LOC: HO.LAB 10:36
PROVIDERS: PCP Internal Medicine; Visit Provider Internal Medicine
DX: E11.9 Type 2 diabetes mellitus without complications (principal); E78.00 Pure hypercholesterolemia, unspecified; I10 Essential (primary) hypertension; Z85.3 Personal history of malignant neoplasm of breast
CPT/HCPCS: 36415; 80053; 80061; 82043; 82607; 83036; 84443; 85025

== ENCOUNTER 2022-04-03 09:01 | Outpatient (REF) | payer MEDICARE, MEDICAID, SELFPAY ==
--- NOTE | ~2022-04-03 | MM_ITS ---
EXAMINATION: MM SCREENING DIGITAL BREAST TOMOSYNTHESIS, RIGHT CLINICAL INFORMATION: Screening. Asymptomatic. Status post left mastectomy. COMPARISON: Mammography: March 25, 2021 and studies dating back to October 24, 2013 TECHNIQUE: Digital breast tomosynthesis is performed in both the craniocaudal and mediolateral oblique views along with computer-aided detection (CAD). Synthesized 2D images are generated from the tomosynthesis. FINDINGS: There are scattered areas of fibroglandular density (ACR BI-RADS breast composition Category b). There are no significant masses, abnormal calcifications, or other abnormalities. MM/MM tomosynthesis screening RT IMPRESSION: No significant changes from prior exam. ASSESSMENT: BI-RADS 1: Negative RECOMMENDATION: Routine annual mammography screening. This patient's information was entered into a reminder system with a target due date for their next mammogram.
== END 2022-04-03 09:02 | disposition home or self-care (01) ==
LOC: HO.MAMMO 09:01
PROVIDERS: PCP Internal Medicine; Visit Provider Internal Medicine
DX: Z12.31 Encounter for screening mammogram for malignant neoplasm of breast (principal)
CPT/HCPCS: 77063; 77067

== ENCOUNTER → 2022-04-08 11:58 | Outpatient (BNVA) | payer MEDICARE, MEDICAID, SELFPAY | PROVIDERS: PCP Internal Medicine; Visit Provider Dietitian, Registered | DX: E11.9 Type 2 diabetes mellitus without complications (principal) | CPT/HCPCS: 97803 ==

== ENCOUNTER → 2022-05-08 09:24 | Outpatient (BNVA) | payer MEDICARE, MEDICAID, SELFPAY | PROVIDERS: PCP Internal Medicine; Visit Provider Surgery | DX: C50.912 Malignant neoplasm of unspecified site of left female breast (principal); Z90.12 Acquired absence of left breast and nipple | CPT/HCPCS: 99212 ==

== ENCOUNTER 2022-05-27 08:18 | Outpatient (REF) | payer MEDICARE, MEDICAID, SELFPAY ==
[2022-05-27 09:44] LABS: Estimated Average Glucose 146 mg/dL; Hemoglobin A1c % 6.7 %
[2022-05-27 12:08] LABS: Alanine Aminotransferase 42 U/L (0-31); Albumin Level 3.7 g/dL (3.5-5.0); Alkaline Phosphatase 150 U/L (39-117); Anion Gap 13 (12-20); Aspartate Amino Transferase 37 U/L (5-31); Bilirubin Total 0.3 mg/dL (0.0-1.0); Blood Urea Nitrogen 16 mg/dL (9-16); Calcium 9.3 mg/dL (8.4-10.2); Carbon Dioxide 30 mmol/L (22-29); Chloride 103 mmol/L (96-108); Estimated Glomerular Filt Rate > 60; Glucose Random 106 mg/dL (60-115); Potassium 4.5 mmol/L (3.3-5.1); Sodium 141 mmol/L (135-145)
== END 2022-05-27 08:19 | disposition home or self-care (01) ==
LOC: HO.LAB 08:18
PROVIDERS: PCP Internal Medicine; Visit Provider Internal Medicine
DX: E11.9 Type 2 diabetes mellitus without complications (principal); E78.2 Mixed hyperlipidemia; F32.5 Major depressive disorder, single episode, in full remission; I10 Essential (primary) hypertension; R74.01 Elevation of levels of liver transaminase levels; Z85.3 Personal history of malignant neoplasm of breast
CPT/HCPCS: 36415; 80053; 83036

== ENCOUNTER 2022-08-04 11:06 | Outpatient (REF) | payer MEDICARE, MEDICAID, SELFPAY ==
[2022-08-04 14:28] LABS: Vitamin D 25-OH Total 19.5 ng/mL (>30)
== END 2022-08-04 11:07 | disposition home or self-care (01) ==
LOC: HO.10HDL 11:06
PROVIDERS: Visit Provider Nurse Practitioner Family
DX: R79.89 Other specified abnormal findings of blood chemistry (principal)
CPT/HCPCS: 36415; 82306

== ENCOUNTER 2022-10-28 09:46 | Outpatient (REF) | payer MEDICARE, MEDICAID, SELFPAY ==
[2022-10-28 10:58] LABS: Estimated Average Glucose 148 mg/dL; Hemoglobin A1c % 6.8 %
[2022-10-28 12:22] LABS: Alanine Aminotransferase 61 U/L (0-31); Albumin Level 3.7 g/dL (3.5-5.0); Alkaline Phosphatase 139 U/L (39-117); Anion Gap 9 (12-20); Aspartate Amino Transferase 58 U/L (5-31); Bilirubin Total 0.5 mg/dL (0.0-1.0); Blood Urea Nitrogen 14 mg/dL (9-16); Calcium 9.4 mg/dL (8.4-10.2); Carbon Dioxide 31 mmol/L (22-29); Chloride 104 mmol/L (96-108); Estimated Glomerular Filt Rate > 60; Glucose Random 146 mg/dL (60-115); Potassium 4.2 mmol/L (3.3-5.1); Sodium 140 mmol/L (135-145); Total Protein 7.3 g/dL (6.5-8.0)
== END 2022-10-28 09:47 | disposition home or self-care (01) ==
LOC: HO.10HDL 09:46
PROVIDERS: Visit Provider Internal Medicine
DX: E11.9 Type 2 diabetes mellitus without complications (principal); H04.123 Dry eye syndrome of bilateral lacrimal glands; I10 Essential (primary) hypertension; R74.01 Elevation of levels of liver transaminase levels; Z85.3 Personal history of malignant neoplasm of breast
CPT/HCPCS: 36415; 80053; 83036

== ENCOUNTER → 2022-11-04 10:16 | Outpatient (BNVA) | payer MEDICARE, MEDICAID, SELFPAY | PROVIDERS: PCP Internal Medicine; Visit Provider Surgery | DX: C50.912 Malignant neoplasm of unspecified site of left female breast (principal); Z90.12 Acquired absence of left breast and nipple | CPT/HCPCS: 99212 ==

== ENCOUNTER 2023-01-31 09:14 | Outpatient (REF) | payer OTHER, SELFPAY ==
[2023-01-31 10:20] LABS: Estimated Average Glucose 140 mg/dL; Hemoglobin A1c % 6.5 %
[2023-01-31 10:39] LABS: Alanine Aminotransferase 58 U/L (0-31); Albumin Level 3.6 g/dL (3.5-5.0); Alkaline Phosphatase 138 U/L (39-117); Anion Gap 14 (12-20); Aspartate Amino Transferase 58 U/L (5-31); Bilirubin Total 0.5 mg/dL (0.0-1.0); Blood Urea Nitrogen 13 mg/dL (9-16); Calcium 9.7 mg/dL (8.4-10.2); Carbon Dioxide 28 mmol/L (22-29); Chloride 103 mmol/L (96-108); Estimated Glomerular Filt Rate > 60; Glucose Random 144 mg/dL (60-115); Potassium 4.2 mmol/L (3.3-5.1); Sodium 141 mmol/L (135-145); Total Protein 7.7 g/dL (6.5-8.0)
== END 2023-01-31 09:15 | disposition home or self-care (01) ==
LOC: HO.LAB 09:14
PROVIDERS: PCP Internal Medicine; Visit Provider Internal Medicine
DX: E11.69 Type 2 diabetes mellitus with other specified complication (principal); I10 Essential (primary) hypertension; J30.1 Allergic rhinitis due to pollen; K12.0 Recurrent oral aphthae
CPT/HCPCS: 36415; 80053; 83036

== ENCOUNTER 2023-02-18 08:57 | Outpatient (AMB) | payer OTHER, MEDICAID, SELFPAY ==
[2023-02-18 09:30] VITALS: BP 140/76; PULSE 68; TEMP 36.4; O2SAT 93; BMI 32.6
--- NOTE | 2023-02-18 09:30 | MHC.OFFVIS ---
Intake Vital Signs 02/18/23 09:30 Height 5 ft 6 in Weight 202 lb 2.622 oz BMI 32.6 BP 140/76 H Blood Pressure Location Rt brachial Position Sitting Pulse 68 Pulse Source Pulse Oximeter Temp 97.5 F Temp Source Skin Pulse Oximetry (%) 93 Intake Visit Reasons: OA Intake Note: Pt seen today for OA follow up. States the pain is the same, not better. Pain in shoulders, low back Aquatic Ecologist Required: Yes Aquatic Ecologist Name: Pricilla Luna #[id number] Information Interpreted: clinical only Accompanied by: Self / Same As Patient Allergies iodine Allergy (Unknown, Verified 02/18/23 09:31) rash chest pain Iodinated Contrast Media [IV Contrast Dye] Allergy (Verified 02/18/23 09:31) chest pain, shortness of breath, pupils dilated oxaprozin [Daypro] Adverse Reaction (Unknown, Verified 02/18/23 09:31) gastritis Medication List - Last Reconciled 02/18/23 by Julia Louis MD acetaminophen ER (Pain Relief (acetaminophen)) 650 mg PO DIRECTED PRN albuterol sulfate 90 mcg/actuation (ProAir HFA) 2 puffs inhalation QID PRN [Alternate Compression Wrap As Directed] aspirin 81 mg PO DAILY atorvastatin 20 mg PO DAILY beclomethasone dipropionate 80 mcg/actuation (Qvar RediHaler) 1 inh inhalation DAILY carboxymethylcellulose sodium 1% 2 drps ophthalmic (eye) BID PRN cholecalciferol (vitamin D3) 25 mcg PO DAILY liam.[email or web address],thigh,reg,med As Directed cyanocobalamin (vitamin B-12) (Vitamin B-12) 500 mcg PO DAILY gabapentin 300 mg PO TID lisinopril-hydrochlorothiazide 20-25 mg 1 tab PO DAILY loratadine 10 mg PO DAILY metformin 1,000 mg PO BID sertraline 50 mg PO DAILY silver sulfadiazine 1% 1 appl topical BID tizanidine 2 mg PO TID PRN tramadol 50 mg PO BID PRN zolpidem 5 mg PO BEDTIME PRN HPI HPI Comments History of Present Illness Details This is a 72-year-old female with generalized osteoarthritis who presents for follow-up. She was last evaluated by Leisa Ruiz last year. Patient states that he feels about the same overall. She takes tramadol as needed for knee and low back pain. sometimes she takes it every day for a few days and then she can go weeks without taking it. [facility] Medical History Abnormal mammogram of left breast Degenerative disc disease Depression Diabetes Dyslipidemia Hypertension Lymphedema of left arm Neuropathy Obesity Obstructive sleep apnea Surgical History History of colonoscopy (~04/24/06) History of colonoscopy (~07/31/17) History of tubal ligation Invasive ductal carcinoma of left breast Family History Father History of hypertension Mother History of hypercholesterolemia History of hypertension History of diabetes mellitus Paternal Grandfather No problems noted. Paternal Grandmother No problems noted. Maternal Grandfather No problems noted. Maternal Grandmother History of diabetes mellitus Colon cancer Maternal Uncle History of leukemia Social History Household Members: Family Housing: House Are you a primary client care specialist to a significant other at home: No Do you presently have visiting nurse or other home services: Yes (lunch program) Alcohol intake: never Patient Tobacco Use Status: Never used Tobacco Second Hand Smoke Exposure: No service: No Current occupational status: disabled Review of Systems [facility] Reports back pain and Reports arthralgias Physical Exam Vital Signs: Last Vital Signs Temp 97.5 F 02/18/23 09:30 Pulse 68 02/18/23 09:30 BP 140/76 H 02/18/23 09:30 Pulse Ox 93 02/18/23 09:30 BMI result Body Mass Index 32.6 Const General: cooperative, healthy appearing and comfortable Nutritional Appearance: obese Orientation/consciousness: patient oriented x3 Limitations: no limitations HEENT Head: Yes normocephalic and Yes atraumatic Mouth: moist mucous membranes Resp Effort & Inspection: normal respiratory effort and able to speak in complete sentences Auscultation: clear to auscultation bilaterally Cardio Rate: regular rate Rhythm: regular rhythm Neuro General: patient oriented x3 Extrem Other: Few tender paraspinal muscles in the lumbar area. Left upper extremity lymphedema Assessment & Plan Assessment & Plan (1) Primary osteoarthritis involving multiple joints: Code(s): M89.49 - Other hypertrophic osteoarthropathy, multiple sites Plan: This is a 72-year-old female with generalized osteoarthritis who presents for follow-up. The majority of patient's complaints are in her lower back and knees. Patient continues to take tramadol as needed, sometimes she takes it daily for a few days and she will go weeks at a time without taking it. Advised patient to try to continue to reduce her tramadol usage. Try using Voltaren gel for her knees and consider Salonpas patch for her back. She stated that she had used patches in the past and will consider trying them again Will check bilateral knee x-rays to evaluate for osteoarthritis. Can consider injections next visit if warranted Plan I spent 25 minutes reviewing patient's chart, evaluating patient, ordering diagnostic workup, counseling patient and documenting in the chart Orders: Orders XR knee LT 3V Today M89.49 - Other hypertrophic osteoarthropathy, multiple sites XR knee RT 3V Today M89.49 - Other hypertrophic osteoarthropathy, multiple sites XR knee standing BI Today M89.49 - Other hypertrophic osteoarthropathy, multiple sites Coding Level of Care Code Est Pt Level 4 (87510) Diagnoses Primary osteoarthritis involving multiple joints M89.49
== END 2023-02-18 10:15 | disposition home or self-care (01) ==
PROVIDERS: PCP Internal Medicine; Visit Provider Student in an Organized Health Care Education/Training Program
DX: M89.49 Other hypertrophic osteoarthropathy, multiple sites (principal)
CPT/HCPCS: 99214

== ENCOUNTER → 2023-02-18 08:57 | Outpatient (BNVA) | payer OTHER, MEDICAID, SELFPAY | PROVIDERS: PCP Internal Medicine; Visit Provider Student in an Organized Health Care Education/Training Program | DX: M89.49 Other hypertrophic osteoarthropathy, multiple sites (principal) | CPT/HCPCS: 99212 ==

== ENCOUNTER 2023-02-24 08:13 | Day surgery (SDC) | payer OTHER, SELFPAY ==
--- NOTE | ~2023-02-24 | IR_ITS ---
Thao catheter removal INDICATIONS: The patient has completed her treatment After informed and written consent was obtained an official timeout was performed immediately prior to the procedure. I was personally responsible for the administration of moderate sedation services, all requirements were followed, an independent trained observer was utilized. PROCEDURE: Local anesthetic was placed overlying the previously placed scar and port. A Transverse incision was made just cephalad to the port. The catheter was freed from the subcutaneous tissues and clamped with a Caitie. The subcutaneous port was freed from the underlying tissues and removed in its entirety. The catheter was then removed and manual pressure applied at the base of the neck. Radiograph confirms complete removal of the port. The subcutaneous pocket was flushed. 3-0 absorbable Vicryl sutures were used to close the subcutaneous tissues followed by a 4-0 running stitch. IR/IR cvc remove tunnel w prt/asphalt plant operator IMPRESSION: Removal of the portacatheter.
[2023-02-24 09:05] VITALS: BMI 32.4
[2023-02-24 09:27] LABS: Glucose, Whole Blood 119 mg/dL (60-115)
[2023-02-24 10:02] LABS: INTERNATIONAL NORM RATIO 0.9 (0.9-1.1); Prothrombin Time 11.5 SEC (11.1-13.3)
[2023-02-24 10:04] LABS: Partial Thromboplastin Time 38.5 SEC (26.0-36.4)
[2023-02-24 12:00] VITALS: BP 148/69; PULSE 62; RESP 16; TEMP 36.2; O2SAT 98
[2023-02-24 12:15] VITALS: BP 159/69; PULSE 59; RESP 18; TEMP 36.2; O2SAT 98
[2023-02-24 12:30] VITALS: BP 160/84; PULSE 78; RESP 20; TEMP 36.3; O2SAT 98
[2023-02-24 12:45] VITALS: BP 170/77; PULSE 77; RESP 20; TEMP 36.6; O2SAT 97
[2023-02-24 13:00] VITALS: BP 165/80; PULSE 79; RESP 20; TEMP 36.6; O2SAT 97
== END 2023-02-24 13:11 | disposition home or self-care (01) ==
PROVIDERS: Radiology Diagnostic Radiology; PCP Internal Medicine; Visit Provider Internal Medicine
PROC: (CPT 36590; principal; 2023-02-24 10:30)
DX: Z45.2 Encounter for adjustment and management of vascular access device (principal); C50.412 Malignant neoplasm of upper-outer quadrant of left female breast; Z17.1 Estrogen receptor negative status [ER-]; Z90.12 Acquired absence of left breast and nipple; I97.2 Postmastectomy lymphedema syndrome; G62.9 Polyneuropathy, unspecified; R20.0 Anesthesia of skin; N64.59 Other signs and symptoms in breast; Z92.21 Personal history of antineoplastic chemotherapy; K76.0 Fatty (change of) liver, not elsewhere classified; I10 Essential (primary) hypertension; E78.5 Hyperlipidemia, unspecified; E11.9 Type 2 diabetes mellitus without complications; Z79.51 Long term (current) use of inhaled steroids; Z79.84 Long term (current) use of oral hypoglycemic drugs; Z79.899 Other long term (current) drug therapy; Z91.041 Radiographic dye allergy status; Z88.8 Allergy status to other drugs, medicaments and biological substances
CPT/HCPCS: 36415; 36590; 82947; 85610; 85730; 99152; J2250; J3010

== ENCOUNTER → 2023-02-24 10:58 | Outpatient (BNV) | payer OTHER, SELFPAY | PROVIDERS: PCP Internal Medicine; Visit Provider Radiology Vascular & Interventional Radiology | DX: Z45.2 Encounter for adjustment and management of vascular access device (principal) | CPT/HCPCS: 36590 ==

== ENCOUNTER 2023-04-09 08:38 | Outpatient (REF) | payer OTHER, SELFPAY ==
--- NOTE | ~2023-04-09 | MM_ITS ---
EXAMINATION: MM SCREENING DIGITAL BREAST TOMOSYNTHESIS, RIGHT CLINICAL INFORMATION: Screening. Asymptomatic. History of left mastectomy. COMPARISON: Mammography: 04/03/2022, 03/25/2021, 03/14/2021, March 13, 2020 and studies dating back to October 24, 2013 TECHNIQUE: Digital right breast tomosynthesis is performed in both the craniocaudal and mediolateral oblique views along with computer-aided detection (CAD). Synthesized 2D images are generated from the tomosynthesis. FINDINGS: There are scattered areas of fibroglandular density (ACR BI-RADS breast composition Category b). There are no significant masses, abnormal calcifications, or other abnormalities. The parenchymal pattern is unchanged from prior studies. No skin or axillary abnormalities. MM/MM tomosynthesis screening RT IMPRESSION: No mammographic evidence of malignancy. ASSESSMENT: BI-RADS BI-RADS 1 - Negative RECOMMENDATION: Routine annual mammography screening. 1 year F/U This examination should not preclude the clinical evaluation of a suspicious palpable abnormality. This patient's information was entered into a reminder system with a target due date for their next mammogram.
== END 2023-04-09 08:39 | disposition home or self-care (01) ==
LOC: HO.MAMMO 08:38
PROVIDERS: PCP Internal Medicine; Visit Provider Internal Medicine
DX: Z12.31 Encounter for screening mammogram for malignant neoplasm of breast (principal)
CPT/HCPCS: 77063; 77067

== ENCOUNTER → 2023-04-09 09:30 | Outpatient (BNV) | payer OTHER, SELFPAY | PROVIDERS: PCP Internal Medicine; Visit Provider Radiology Diagnostic Radiology | DX: Z12.31 Encounter for screening mammogram for malignant neoplasm of breast (principal) | CPT/HCPCS: 77063; 77067 ==

== ENCOUNTER 2023-05-01 09:05 | Outpatient (REF) | payer OTHER, SELFPAY ==
[2023-05-01 11:09] LABS: MANUAL DIFF FLAG NO
[2023-05-01 11:34] LABS: Alanine Aminotransferase 70 U/L (0-31); Albumin Level 3.8 g/dL (3.5-5.0); Alkaline Phosphatase 176 U/L (39-117); Anion Gap 10 (12-20); Aspartate Amino Transferase 56 U/L (5-31); Bilirubin Total 0.4 mg/dL (0.0-1.0); Blood Urea Nitrogen 12 mg/dL (9-16); Calcium 9.5 mg/dL (8.4-10.2); Carbon Dioxide 31 mmol/L (22-29); Chloride 102 mmol/L (96-108); Cholesterol 170 mg/dL (<200); Estimated Glomerular Filt Rate > 60; Glucose Random 125 mg/dL (60-115); HDL Cholesterol 41 mg/dL (>40); LDL Cholesterol Calculated 100 mg/dL (<100); Potassium 4.3 mmol/L (3.3-5.1); Sodium 139 mmol/L (135-145); Total Protein 8.2 g/dL (6.5-8.0); Triglycerides 148 mg/dL (<150)
[2023-05-01 11:41] LABS: Basophils Percent Auto 0.7 % (0-2); Eosinophils Absolute Auto 0.1 X10*3/uL (0.0-0.4); Eosinophils Percent Auto 1.8 % (0-4); Hematocrit 42.5 % (37.0-47.0); Imm Gran Abs Auto 0.01 X10*3/uL (0.00-0.03); Imm Gran Pct Auto 0.2 % (0.0-0.4); Lymphocytes Absolute Auto 2.4 X10*3/uL (1.2-4.9); Lymphocytes Percent Auto 42.9 % (20-40); Mean Corpuscular HGB Conc 32.9 g/dl (31.0-35.0); Mean Corpuscular Hemoglobin 27.7 pg (27.0-33.0); Mean Corpuscular Volume 84.2 fL (80.0-98.0); Mean Platelet Volume 9.9 fL (9.4-12.3); Monocytes Absolute Auto 0.5 X10*3/uL (0.1-1.2); Monocytes Percent Auto 8.3 % (2-11); Neutrophils Absolute Auto 2.6 x10*3/uL (2.0-8.3); Neutrophils Percent Auto 46.1 % (45-73); Platelet Count 365 X10*3/uL (160-400); Red Blood Count 5.05 X10*6/uL (4.20-5.50); Red Cell Distribution Width 13.9 % (11.0-16.0); White Blood Count 5.6 X10*3/uL (4.8-10.8)
[2023-05-01 11:53] LABS: Estimated Average Glucose 140 mg/dL; Hemoglobin A1c % 6.5 % (<6.0)
[2023-05-01 12:07] LABS: Vitamin D 25-OH Total 31.6 ng/mL (>30)
[2023-05-01 12:10] LABS: Vitamin B12 887 pg/mL (200-900)
[2023-05-01 12:31] LABS: Creatinine Urine 238.38 mg/dL; Microalbum/Creatinine Ratio Ur 5.8 ug/mg cr (<30)
== END 2023-05-01 09:06 | disposition home or self-care (01) ==
LOC: HO.10HDL 09:05
PROVIDERS: Visit Provider Internal Medicine
DX: E11.9 Type 2 diabetes mellitus without complications (principal); I10 Essential (primary) hypertension; M54.50 Low back pain, unspecified; M81.8 Other osteoporosis without current pathological fracture; R74.01 Elevation of levels of liver transaminase levels
CPT/HCPCS: 36415; 80053; 80061; 82043; 82306; 82570; 82607; 83036; 85025

== ENCOUNTER 2023-05-07 09:29 | Outpatient (AMB) | payer OTHER, SELFPAY ==
[2023-05-07 09:35] VITALS: BP 155/78; PULSE 86
--- NOTE | 2023-05-07 09:35 | A.OFFVIS_ITS ---
Intake Vital Signs 05/07/23 09:35 Weight 201 lb BP 155/78 H Blood Pressure Location Rt brachial Position Sitting Pulse 86 Intake Visit Reasons: 6 month breast exam Intake Note: Patient is seen in office for 6 month follow up visit, breast exam. Reports no changes or concerns. mm: 04/09/23 [place]: 02/12/23 Defence Intelligence Analyst Required: Yes Accompanied by: Self / Same As Patient Allergies iodine Allergy (Unknown, Verified 05/07/23 09:36) rash chest pain Iodinated Contrast Media [IV Contrast Dye] Allergy (Verified 05/07/23 09:36) chest pain, shortness of breath, pupils dilated oxaprozin [Daypro] Adverse Reaction (Unknown, Verified 05/07/23 09:36) gastritis Medication List - Last Reconciled 05/07/23 by Ziggy Estrada MD acetaminophen ER (Pain Relief (acetaminophen)) 650 mg PO DIRECTED PRN albuterol sulfate 90 mcg/actuation (ProAir HFA) 2 puffs inhalation QID PRN [Alternate Compression Wrap As Directed] aspirin 81 mg PO DAILY atorvastatin 20 mg PO DAILY beclomethasone dipropionate 80 mcg/actuation (Qvar RediHaler) 1 inh inhalation DAILY carboxymethylcellulose sodium 1% 2 drps ophthalmic (eye) BID PRN cholecalciferol (vitamin D3) 25 mcg PO DAILY liam.stocking,thigh,reg,med As Directed cyanocobalamin (vitamin B-12) (Vitamin B-12) 500 mcg PO DAILY gabapentin 300 mg PO TID lisinopril-hydrochlorothiazide 20-25 mg 1 tab PO DAILY loratadine 10 mg PO DAILY metformin 1,000 mg PO BID sertraline 50 mg PO DAILY silver sulfadiazine 1% 1 appl topical BID tizanidine 2 mg PO TID PRN tramadol 50 mg PO BID PRN zolpidem 5 mg PO BEDTIME PRN HPI HPI Comments History of Present Illness Details 73-year-old female patient returning for follow-up breast examination. She was initially evaluated on 03/27/2020 for a palpable left breast mass noted on self examination. This was confirmed on mammogram and ultrasound and ultrasound-guided core biopsy of 3 areas of the left breast performed. This revealed invasive ductal carcinoma, ER/[place]/HER2 Geovanny negative. Patient decided proceed with a modified radical mastectomy performed on 04/16/2020. Final pathology revealed invasive ductal carcinoma, MS BR grade 3 with medullary features; margins were negative, ERPR HER2 Geovanny negative, 0 of 25 axillary lymph nodes with metastatic disease (pT2No). She underwent a AC every 3 weeks x4 followed by Taxotere x4. She reports continued lymphedema in the left arm for which she wears a sleeve which helps. She denies any pain in the chest or arms. Her last right breast mammography of 04/09/2023 revealed no mammographic evidence of malignancy (BI-RADS 1). Annual screening is recommended. [facility] Medical History Lymphedema of left arm Neuropathy Abnormal mammogram of left breast Degenerative disc disease Obesity Dyslipidemia Obstructive sleep apnea Depression Hypertension Diabetes Surgical History Invasive ductal carcinoma of left breast History of colonoscopy (~07/31/17) History of colonoscopy (~04/24/06) History of tubal ligation Family History Father History of hypertension Mother History of hypercholesterolemia History of hypertension History of diabetes mellitus Paternal Grandfather No problems noted. Paternal Grandmother No problems noted. Maternal Grandfather No problems noted. Maternal Grandmother History of diabetes mellitus Colon cancer Maternal Uncle History of leukemia Social History Household Members: Family Housing: House Are you a primary morning caregiver to a significant other at home: No Do you presently have visiting nurse or other home services: Yes (lunch program) Alcohol intake: never Patient Tobacco Use Status: Never used Tobacco Second Hand Smoke Exposure: No service: No Current occupational status: disabled Review of Systems Const Denies chills, Denies fever(s), Denies headache(s) and Denies poor appetite ENT Denies headache(s) Card Denies chest pain, Denies rapid heart rate, Denies palpitations and Denies slow heart rate Resp Denies chest congestion, Denies cough, Denies pain on inspiration and Denies wheezing GI Denies abdominal pain, Denies bloating, Denies change in stool character, Denies constipation, Denies diarrhea, Denies nausea, Denies vomiting and Denies hematemesis Denies nipple discharge Skin/Breast Reports breast skin changes, Reports breast pain, Reports breast mass, Denies change in pigmentation, Denies nipple discharge, Denies erythema and Denies rash Neuro Denies headache(s) Endo Denies palpitations Red/Lymph Denies easy bleeding, Denies easy bruising and Denies lymphadenopathy Aller/Immun Denies wheezing Physical Exam Vital Signs: Last Vital Signs Pulse 86 05/07/23 09:35 BP 155/78 H 05/07/23 09:35 Const General: cooperative, healthy appearing, comfortable and no acute distress Chest Other: Left mastectomy incision is clean and intact with no palpable subcutaneous nodules or skin changes. No enlarged lymph nodes noted in the axilla. Right breast with no skin change, nipple retraction, nipple discharge, palpable mass, or enlarged lymph nodes. Resp Other: Breathing comfortably on room air, no respiratory distress Skin Other: Warm, dry, no rash Extrem Other: Left arm normal range of motion, 2+ pitting edema Assessment & Plan Assessment & Plan (1) History of modified radical mastectomy of left breast: Code(s): Z90.12 - Acquired absence of left breast and nipple (2) Invasive ductal carcinoma of left breast: Code(s): C50.912 - Malignant neoplasm of unspecified site of left female breast Plan 73-year-old female patient returning for a routine follow-up examination after left breast modified radical mastectomy for invasive ductal carcinoma. She completed chemotherapy and tolerated this well. She complains mainly of lymphedema in the left arm. She continues to wear the sleeve for compression especially at night. She denies any new breast symptoms. Examination today reveals no suspicious findings in the left chest wall or right breast. Most re cent mammogram of 04/09/2023 revealed no mammographic evidence of malignancy (BI-RADS 1). Annual screening was recommended. I recommended she follow-up in 6 months for routine breast examination, sooner p.r.n.. Coding Level of Care Code Est Pt Level 3 (73100) Diagnoses History of modified radical mastectomy of left breast Z90.12 Invasive ductal carcinoma of left breast C50.912
== END 2023-05-07 09:50 | disposition home or self-care (01) ==
PROVIDERS: Visit Provider Surgery
DX: Z90.12 Acquired absence of left breast and nipple (principal); C50.912 Malignant neoplasm of unspecified site of left female breast
CPT/HCPCS: 99213

== ENCOUNTER → 2023-05-07 09:29 | Outpatient (BNVA) | payer OTHER, SELFPAY | PROVIDERS: Visit Provider Surgery | DX: Z12.31 Encounter for screening mammogram for malignant neoplasm of breast (principal); C50.912 Malignant neoplasm of unspecified site of left female breast; Z90.12 Acquired absence of left breast and nipple | CPT/HCPCS: 99212 ==

== ENCOUNTER 2023-08-05 08:13 | Outpatient (REF) | payer OTHER, SELFPAY ==
[2023-08-05 08:48] LABS: Estimated Average Glucose 140 mg/dL; Hemoglobin A1c % 6.5 % (<6.0)
[2023-08-05 08:51] LABS: Alanine Aminotransferase 65 U/L (0-31); Albumin Level 3.6 g/dL (3.5-5.0); Alkaline Phosphatase 151 U/L (39-117); Anion Gap 9 (12-20); Aspartate Amino Transferase 67 U/L (5-31); Bilirubin Total 0.4 mg/dL (0.0-1.0); Blood Urea Nitrogen 14 mg/dL (9-16); Calcium 9.7 mg/dL (8.4-10.2); Carbon Dioxide 33 mmol/L (22-29); Chloride 102 mmol/L (96-108); Cholesterol 185 mg/dL (<200); Estimated Glomerular Filt Rate > 60; Glucose Random 146 mg/dL (60-115); HDL Cholesterol 33 mg/dL (>40); LDL Cholesterol Calculated 82 mg/dL (<100); Potassium 4.1 mmol/L (3.3-5.1); Sodium 140 mmol/L (135-145); Total Protein 8.2 g/dL (6.5-8.0); Triglycerides 351 mg/dL (<150)
== END 2023-08-05 08:14 | disposition home or self-care (01) ==
LOC: HO.LAB 08:13
PROVIDERS: PCP Internal Medicine; Visit Provider Internal Medicine
DX: E11.9 Type 2 diabetes mellitus without complications (principal); E78.00 Pure hypercholesterolemia, unspecified; I10 Essential (primary) hypertension; R74.01 Elevation of levels of liver transaminase levels
CPT/HCPCS: 36415; 80053; 80061; 83036

== ENCOUNTER 2023-08-12 09:53 | Outpatient (AMB) | payer OTHER, SELFPAY ==
--- NOTE | 2023-08-12 10:15 | MHC.OFFVIS ---
Intake Vital Signs 08/12/23 10:16 Height 5 ft 6 in Weight 201 lb 4.513 oz BMI 32.5 BP 108/64 Blood Pressure Location Rt brachial Position Sitting Pulse 96 Pulse Source Pulse Oximeter Pulse Oximetry (%) 97 Oxygen Delivery Method Room Air Intake Visit Reasons: OA Intake Note: Patient last seen 02/18/23 presents today for follow up and test results. Reports she saw PCP yesterday cholesterol med switched; also reports she saw Dr Becker and was told she has fatty liver, following up 08/24/23 Stock Receiver Required: Yes Stock Receiver Language: Block Mechanic Name: Walter [email or web address] Information Interpreted: clinical only Accompanied by: niece Allergies iodine Allergy (Unknown, Verified 08/12/23 10:18) rash chest pain Iodinated Contrast Media [IV Contrast Dye] Allergy (Verified 08/12/23 10:18) chest pain, shortness of breath, pupils dilated oxaprozin [Daypro] Adverse Reaction (Unknown, Verified 08/12/23 10:18) gastritis Medication List - Last Reconciled 08/12/23 by Julia Louis MD acetaminophen ER (Pain Relief (acetaminophen)) 650 mg PO DIRECTED PRN albuterol sulfate 90 mcg/actuation (ProAir HFA) 2 puffs inhalation QID PRN [Alternate Compression Wrap As Directed] aspirin 81 mg PO DAILY beclomethasone dipropionate 80 mcg/actuation (Qvar RediHaler) 1 inh inhalation DAILY carboxymethylcellulose sodium 1% 2 drps ophthalmic (eye) BID PRN cholecalciferol (vitamin D3) 25 mcg PO DAILY liam.stocking,thigh,reg,med As Directed cyanocobalamin (vitamin B-12) (Vitamin B-12) 500 mcg PO DAILY gabapentin 300 mg PO TID lisinopril-hydrochlorothiazide 20-25 mg 1 tab PO DAILY loratadine 10 mg PO DAILY metformin 1,000 mg PO BID rosuvastatin 40 mg PO DAILY sertraline 50 mg PO DAILY silver sulfadiazine 1% 1 appl topical BID tizanidine 2 mg PO TID PRN tramadol 50 mg PO BID PRN zolpidem 5 mg PO BEDTIME PRN HPI HPI Comments History of Present Illness Details This is a 73-year-old female with generalized osteoarthritis who presents for follow-up. Patient continues to take tramadol as needed for her multiple joint pain. She uses 14 tablets every 6 weeks to 1 month. She is doing fairly well overall. No complaints today [facility] Medical History Lymphedema of left arm Neuropathy Abnormal mammogram of left breast Degenerative disc disease Obesity Dyslipidemia Obstructive sleep apnea Depression Hypertension Diabetes Surgical History Invasive ductal carcinoma of left breast History of colonoscopy (~07/31/17) History of colonoscopy (~04/24/06) History of tubal ligation Family History Father History of hypertension Mother History of hypercholesterolemia History of hypertension History of diabetes mellitus Paternal Grandfather No problems noted. Paternal Grandmother No problems noted. Maternal Grandfather No problems noted. Maternal Grandmother History of diabetes mellitus Colon cancer Maternal Uncle History of leukemia Social History Household Members: Family Housing: House Are you a primary child care supervisor to a significant other at home: No Do you presently have visiting nurse or other home services: Yes (lunch program) Alcohol intake: never Comment: pt sleeping Patient Tobacco Use Status: Never used Tobacco Second Hand Smoke Exposure: No service: No Current occupational status: disabled Review of Systems Musc Reports back pain and Reports arthralgias Physical Exam Vital Signs: Last Vital Signs Pulse 96 08/12/23 10:16 BP 108/64 08/12/23 10:16 Pulse Ox 97 08/12/23 10:16 Oxygen Delivery Method Room Air 08/12/23 10:16 BMI result Body Mass Index 32.5 Const General: cooperative, healthy appearing and comfortable Nutritional Appearance: obese Orientation/consciousness: patient oriented x3 Limitations: no limitations HEENT Head: Yes normocephalic and Yes atraumatic Resp Effort & Inspection: normal respiratory effort and able to speak in complete sentences Cardio Rate: regular rate Rhythm: regular rhythm Neuro General: patient oriented x3 Extrem Other: Few tender paraspinal muscles in the lumbar area. Left upper extremity lymphedema Assessment & Plan Assessment & Plan (1) Primary osteoarthritis involving multiple joints: Code(s): M89.49 - Other hypertrophic osteoarthropathy, multiple sites Plan: This is a 72-year-old female with generalized osteoarthritis who presents for follow-up. The majority of patient's complaints are in her lower back and knees. Patient continues to take tramadol as needed patient uses 14 tablets every 6 weeks to 2 months. Tramadol refilled. Follow-up in 6 months Plan I spent 15 minutes reviewing patient's chart, evaluating patient, counseling patient and documenting in the chart Medications: Refilled tramadol 50 mg PO BID PRN 30 tabs 1RF pain Coding Level of Care Code Est Pt Level 3 (26835) Diagnoses Primary osteoarthritis involving multiple joints M89.49
[2023-08-12 10:16] VITALS: BP 108/64; PULSE 96; O2SAT 97; BMI 32.5
== END 2023-08-12 10:41 | disposition home or self-care (01) ==
PROVIDERS: PCP Internal Medicine; Visit Provider Student in an Organized Health Care Education/Training Program
DX: M89.49 Other hypertrophic osteoarthropathy, multiple sites (principal)
CPT/HCPCS: 99213

== ENCOUNTER → 2023-08-12 09:53 | Outpatient (BNVA) | payer OTHER, SELFPAY | PROVIDERS: PCP Internal Medicine; Visit Provider Student in an Organized Health Care Education/Training Program | DX: M89.49 Other hypertrophic osteoarthropathy, multiple sites (principal) | CPT/HCPCS: 99212 ==

== ENCOUNTER 2023-08-24 07:57 | Outpatient (REF) | payer OTHER, SELFPAY ==
--- NOTE | ~2023-08-24 | US_ITS ---
EXAMINATION: US ABDOMEN COMPLETE CLINICAL INFORMATION: History of breast cancer, elevated liver enzymes. COMPARISON: Ultrasound liver 09/22/2022. Ultrasound abdomen complete 07/19/2021. TECHNIQUE: Real-time imaging of the abdominal viscera. Limited visualization due to bowel gas. FINDINGS: PANCREAS: Limited visualization of pancreatic tail and head. Imaged portion of pancreatic body is unremarkable. ABDOMINAL AORTA: Limited visualization of the mid abdominal aorta. Imaged portions of the proximal and distal abdominal aorta are unremarkable. INFERIOR VENA CAVA: Visualized portions are normal. LIVER: Increased hepatic parenchymal heterogeneity and echogenicity could be associated with hepatocellular disease/hepatic steatosis and substantially limits visualization. Correlation with liver function tests and clinical exam recommended to determine further management. GALLBLADDER: Echogenic material in gallbladder may represent echogenic bile and/or nonshadowing tiny gallstones. No gallbladder wall thickening. COMMON BILE DUCT: Normal in caliber measuring 0.2 cm in diameter. RIGHT KIDNEY: A lateral midpole 1.1 cm cyst redemonstrated. There is no specific indication for additional imaging at this time. Limited visualization. No hydronephrosis or renal calculi. The kidney measures 12.2 cm in maximum dimension. LEFT KIDNEY: No hydronephrosis. No renal calculi. Limited visualization. The kidney measures 11.4 cm in maximum dimension. SPLEEN: Normal. The spleen measures 11 cm in maximum dimension. FREE FLUID: None. US/US abdomen complete IMPRESSION: 1. Increased hepatic parenchymal heterogeneity and echogenicity could be associated with hepatocellular disease/hepatic steatosis and substantially limits visualization. Correlation with liver function tests and clinical exam recommended to determine further management. 2. Echogenic material in gallbladder may represent echogenic bile and/or nonshadowing tiny gallstones. No gallbladder wall thickening.
== END 2023-08-24 07:58 | disposition home or self-care (01) ==
LOC: HO.US 07:57
PROVIDERS: PCP Internal Medicine; Visit Provider Internal Medicine
DX: R79.89 Other specified abnormal findings of blood chemistry (principal); C50.912 Malignant neoplasm of unspecified site of left female breast
CPT/HCPCS: 76700

== ENCOUNTER 2023-11-05 10:01 | Outpatient (AMB) | payer OTHER, MEDICAID, SELFPAY ==
--- NOTE | 2023-11-05 10:04 | MHC.OFFVIS ---
Vital Signs 11/05/23 10:10 Height 5 ft 6 in Weight 200 lb BMI 32.3 BP 164/85 H Blood Pressure Location Lt brachial Position Sitting Pulse 92 Intake Visit Reasons: 6 month breast exam Intake Note: Patient is seen in office for 6 month follow up visit, breast exam. Pt c/o: denies any concerns regarding the breast mm:03/31/23 Equipment Records Supervisor Required: Yes Equipment Records Supervisor Language: Car Seat Coverer Name: Sumaya NOE Information Interpreted: non-clinical & clinical Atomic Spectroscopist: Atomic Spectroscopist Present Accompanied by: Self / Same As Patient Allergies iodine Allergy (Unknown, Verified 11/05/23 10:10) rash chest pain Iodinated Contrast Media [IV Contrast Dye] Allergy (Verified 11/05/23 10:10) chest pain, shortness of breath, pupils dilated oxaprozin [Daypro] Adverse Reaction (Unknown, Verified 11/05/23 10:10) gastritis HPI Comments Details: 73-year-old female patient returning for follow-up breast examination. She was initially evaluated on 03/27/2020 for a palpable left breast mass noted on self examination. This was confirmed on mammogram and ultrasound and ultrasound-guided core biopsy of 3 areas of the left breast performed. This revealed invasive ductal carcinoma, ER/[place]/HER2 Geovanny negative. Patient decided proceed with a modified radical mastectomy performed on 04/16/2020. Final pathology revealed invasive ductal carcinoma, MS BR grade 3 with medullary features; margins were negative, ERPR HER2 Geovanny negative, 0 of 25 axillary lymph nodes with metastatic disease (pT2No). She underwent a AC every 3 weeks x4 followed by Taxotere x4. She reports continued lymphedema in the left arm for which she wears a sleeve mainly at night, which helps. She denies any pain in the chest or arms. Her last mammogram dated 05/10/2023 of the right breast revealed no mammographic evidence of malignancy (BI-RADS 1). She will be due for a mammogram in April 2024. [facility] Medical History Lymphedema of left arm Neuropathy Abnormal mammogram of left breast Degenerative disc disease Obesity Dyslipidemia Obstructive sleep apnea Depression Hypertension Diabetes Surgical History Invasive ductal carcinoma of left breast History of colonoscopy (~07/31/17) History of colonoscopy (~04/24/06) History of tubal ligation Family History Father History of hypertension Mother History of hypercholesterolemia History of hypertension History of diabetes mellitus Paternal Grandfather No problems noted. Paternal Grandmother No problems noted. Maternal Grandfather No problems noted. Maternal Grandmother History of diabetes mellitus Colon cancer Maternal Uncle History of leukemia Social History Household Members: Family Housing: House Are you a primary acute care registered nurse to a significant other at home: No Do you presently have visiting nurse or other home services: Yes (lunch program) Alcohol intake: never Comment: pt sleeping Patient Tobacco Use Status: Never used Tobacco Second Hand Smoke Exposure: No service: No Current occupational status: disabled Review of Systems Const Denies chills, Denies fever(s), Denies headache(s) and Denies poor appetite ENT Denies headache(s) Card Denies chest pain, Denies rapid heart rate, Denies palpitations and Denies slow heart rate Resp Denies chest congestion, Denies cough, Denies pain on inspiration and Denies wheezing GI Denies abdominal pain, Denies bloating, Denies change in stool character, Denies constipation, Denies diarrhea, Denies nausea, Denies vomiting and Denies hematemesis Denies nipple discharge Skin/Breast Reports breast skin changes, Reports breast pain, Reports breast mass, Denies change in pigmentation, Denies nipple discharge, Denies erythema and Denies rash Neuro Denies headache(s) Endo Denies palpitations Red/Lymph Denies easy bleeding, Denies easy bruising and Denies lymphadenopathy Aller/Immun Denies wheezing Physical Exam Const General: cooperative, healthy appearing, comfortable and no acute distress Chest Other: Left mastectomy incision is clean and intact with no palpable subcutaneous nodules or skin changes. No enlarged lymph nodes noted in the axilla. Right breast with no skin change, nipple retraction, nipple discharge, palpable mass, or enlarged lymph nodes. Resp Other: Breathing comfortably on room air, no respiratory distress Skin Other: Warm, dry, no rash Extrem Other: Left arm normal range of motion, 2+ pitting edema Normal gait Assessment & Plan Assessment & Plan (1) History of modified radical mastectomy of left breast: Code(s): Z90.12 - Acquired absence of left breast and nipple Category: Surgical (2) Invasive ductal carcinoma of left breast: Code(s): C50.912 - Malignant neoplasm of unspecified site of left female breast Category: Surgical Plan 73-year-old female patient returning for a routine follow-up examination after left breast modified radical mastectomy for invasive ductal carcinoma (pT2N0). She completed chemotherapy and tolerated this well. She complains mainly of lymphedema in the left arm. She continues to wear the sleeve for compression especially at night. She denies any new breast symptoms. Examination today reveals no suspicious findings in the left chest wall or right breast. Most recent mammogram of 05/10/2023 revealed no mammographic evidence of malignancy (BI-RADS 1). Annual screening has been requested. I recommended she follow-up in 6 months for routine breast examination, sooner p.r.n.. Orders: Orders MM screening mammo unilat RT 05/11/24 Z90.12 - Acquired absence of left breast and nipple Coding Level of Care Code Est Pt Level 3 (41500) Diagnoses History of modified radical mastectomy of left breast Z90.12 Invasive ductal carcinoma of left breast C50.912
[2023-11-05 10:10] VITALS: BP 164/85; PULSE 92; BMI 32.3
== END 2023-11-05 10:22 | disposition home or self-care (01) ==
PROVIDERS: PCP Internal Medicine; Visit Provider Surgery
DX: Z90.12 Acquired absence of left breast and nipple (principal); C50.912 Malignant neoplasm of unspecified site of left female breast
CPT/HCPCS: 99213

== ENCOUNTER → 2023-11-05 10:01 | Outpatient (BNVA) | payer OTHER, MEDICAID, SELFPAY | PROVIDERS: PCP Internal Medicine; Visit Provider Surgery | DX: C50.912 Malignant neoplasm of unspecified site of left female breast (principal); Z90.12 Acquired absence of left breast and nipple | CPT/HCPCS: 99212 ==

== ENCOUNTER 2023-11-17 08:51 | Outpatient (REF) | payer OTHER, SELFPAY ==
[2023-11-17 09:41] LABS: Estimated Average Glucose 169 mg/dL; Hemoglobin A1c % 7.5 % (<6.0)
[2023-11-17 09:57] LABS: Alanine Aminotransferase 60 U/L (0-31); Albumin Level 3.6 g/dL (3.5-5.0); Alkaline Phosphatase 157 U/L (39-117); Anion Gap 9 (12-20); Aspartate Amino Transferase 77 U/L (5-31); Bilirubin Total 0.5 mg/dL (0.0-1.0); Blood Urea Nitrogen 10 mg/dL (9-16); Calcium 9.6 mg/dL (8.4-10.2); Carbon Dioxide 30 mmol/L (22-29); Chloride 105 mmol/L (96-108); Cholesterol 107 mg/dL (<200); Estimated Glomerular Filt Rate > 60; Glucose Random 140 mg/dL (60-115); HDL Cholesterol 35 mg/dL (>40); LDL Cholesterol Calculated 42 mg/dL (<100); Potassium 4.1 mmol/L (3.3-5.1); Sodium 140 mmol/L (135-145); Total Protein 7.8 g/dL (6.5-8.0); Triglycerides 154 mg/dL (<150)
== END 2023-11-17 08:52 | disposition home or self-care (01) ==
LOC: HO.LAB 08:51
PROVIDERS: PCP Internal Medicine; Visit Provider Internal Medicine
DX: E11.9 Type 2 diabetes mellitus without complications (principal); E78.2 Mixed hyperlipidemia; F32.5 Major depressive disorder, single episode, in full remission; R74.01 Elevation of levels of liver transaminase levels
CPT/HCPCS: 36415; 80053; 80061; 83036

== ENCOUNTER 2024-02-15 09:21 | Outpatient (AMB) | payer OTHER, SELFPAY ==
--- NOTE | 2024-02-15 09:31 | MHC.OFFVIS ---
Vital Signs 02/15/24 09:42 Height 5 ft 6 in Weight 198 lb 13.711 oz BMI 32.1 BP 144/72 H Blood Pressure Location Lt brachial Position Sitting Pulse 81 Pulse Source Pulse Oximeter Pulse Oximetry (%) 97 Oxygen Delivery Method Room Air Intake Visit Reasons: OA Intake Note: Patient last seen by Doctor Julia Louis on 08/12/23. Presents today for OA follow up. [employer] Vendor Required: Yes [employer]venir [employer] Vendor Services: Souvenir [employer] Vendor Present [employer] [address] Vendor Name: Zehra Hines#[id number] Allergies iodine Allergy (Unknown, Verified 02/15/24 09:38) rash chest pain Iodinated Contrast Media [IV Contrast Dye] Allergy (Verified 02/15/24 09:38) chest pain, shortness of breath, pupils dilated oxaprozin [Daypro] Adverse Reaction (Unknown, Verified 02/15/24 09:38) gastritis Medication List - Last Reconciled 02/15/24 by Julia Louis MD acetaminophen ER (Pain Relief (acetaminophen)) 650 mg PO DIRECTED PRN albuterol sulfate 90 mcg/actuation (ProAir HFA) 2 puffs inhalation QID PRN [Alternate Compression Wrap As Directed] aspirin 81 mg PO DAILY beclomethasone dipropionate 80 mcg/actuation (Qvar RediHaler) 1 inh inhalation DAILY carboxymethylcellulose sodium 1% 2 drps ophthalmic (eye) BID PRN cholecalciferol (vitamin D3) 25 mcg PO DAILY liam.stocking,thigh,reg,med As Directed cyanocobalamin (vitamin B-12) (Vitamin B-12) 500 mcg PO DAILY gabapentin 300 mg PO TID lisinopril-hydrochlorothiazide 20-25 mg 1 tab PO DAILY loratadine 10 mg PO DAILY metformin 1,000 mg PO BID rosuvastatin 40 mg PO DAILY sertraline 50 mg PO DAILY silver sulfadiazine 1% 1 appl topical BID tizanidine 2 mg PO TID PRN tramadol 50 mg PO BID PRN zolpidem 5 mg PO BEDTIME PRN HPI Comments Details: This is a 73-year-old female with generalized osteoarthritis who presents for follow-up. Patient continues to take tramadol as needed for her multiple joint pain. She uses 14 tablets every 6 weeks to 1 month. She continues to have intermittent low back pain that intermittently radiates to her lower extremities. Worse with walking. She states that she was evaluated by a pharmacy specialist in the past and surgery was discussed, she eventually had an injection in her spine which did provide some relief. Currently she uses Tylenol and ice for her low back pain, uses tramadol only when absolutely needed. [facility] Medical History Lymphedema of left arm Neuropathy Abnormal mammogram of left breast Degenerative disc disease Obesity Dyslipidemia Obstructive sleep apnea Depression Hypertension Diabetes Surgical History Invasive ductal carcinoma of left breast History of colonoscopy (~07/31/17) History of colonoscopy (~04/24/06) History of tubal ligation Family History Father History of hypertension Mother History of hypercholesterolemia History of hypertension History of diabetes mellitus Paternal Grandfather No problems noted. Paternal Grandmother No problems noted. Maternal Grandfather No problems noted. Maternal Grandmother History of diabetes mellitus Colon cancer Maternal Uncle History of leukemia Social History Household Members: Family Housing: House Are you a primary manager wound care to a significant other at home: No Do you presently have visiting nurse or other home services: Yes (lunch program) Alcohol intake: never Comment: pt sleeping Patient Tobacco Use Status: Never used Tobacco Second Hand Smoke Exposure: No service: No Current occupational status: disabled Review of Systems Musc Reports back pain, Reports arthralgias and Reports radiating pain into limb Physical Exam Vital Signs: Last Vital Signs Pulse 81 02/15/24 09:42 BP 144/72 H 02/15/24 09:42 Pulse Ox 97 02/15/24 09:42 Oxygen Delivery Method Room Air 02/15/24 09:42 BMI result Body Mass Index 32.1 Const General: cooperative, healthy appearing and comfortable Nutritional Appearance: obese Orientation/consciousness: patient oriented x3 Limitations: no limitations HEENT Head: Yes normocephalic and Yes atraumatic Resp Effort & Inspection: normal respiratory effort and able to speak in complete sentences Cardio Rate: regular rate Rhythm: regular rhythm Neuro General: patient oriented x3 Extrem Other: Few tender paraspinal muscles in the lumbar area. Positive straight leg raise test bilaterally Left upper extremity lymphedema Assessment & Plan Assessment & Plan (1) Primary osteoarthritis involving multiple joints: Code(s): M89.49 - Other hypertrophic osteoarthropathy, multiple sites Category: Medical Plan: This is a 72-year-old female with generalized osteoarthritis who presents for follow-up. The majority of patient's complaints are in her lower back and knees. Patient continues to take tramadol as needed patient uses 14 tablets every 6 weeks to 2 months. The majority of her complaints today are due to lumbar degenerative arthritis. I will refer her to pain management Follow-up in 6 months (2) Lumbar radiculopathy: Code(s): M54.16 - Radiculopathy, lumbar region Category: Medical Plan I spent 15 minutes reviewing patient's chart, evaluating patient, counseling patient and documenting in the chart Orders: Referrals Pain Management Referral M54.16 - Radiculopathy, lumbar region Coding Level of Care Code Est Pt Level 3 (86648) Diagnoses Primary osteoarthritis involving multiple joints M89.49 Lumbar radiculopathy M54.16
[2024-02-15 09:42] VITALS: BP 144/72; PULSE 81; O2SAT 97; BMI 32.1
== END 2024-02-15 10:11 | disposition home or self-care (01) ==
PROVIDERS: PCP Internal Medicine; Visit Provider Student in an Organized Health Care Education/Training Program
DX: M89.49 Other hypertrophic osteoarthropathy, multiple sites (principal); M54.16 Radiculopathy, lumbar region
CPT/HCPCS: 99213

== ENCOUNTER → 2024-02-15 09:21 | Outpatient (BNVA) | payer OTHER, SELFPAY | PROVIDERS: PCP Internal Medicine; Visit Provider Student in an Organized Health Care Education/Training Program | DX: M89.49 Other hypertrophic osteoarthropathy, multiple sites (principal); M54.16 Radiculopathy, lumbar region | CPT/HCPCS: 99212 ==

== ENCOUNTER 2024-02-29 09:02 | Outpatient (REF) | payer OTHER, SELFPAY ==
[2024-02-29 09:24] LABS: MANUAL DIFF FLAG NO
[2024-02-29 10:23] LABS: Basophils Percent Auto 0.8 % (0-2); Eosinophils Absolute Auto 0.1 X10*3/uL (0.0-0.4); Eosinophils Percent Auto 2.5 % (0-4); Hematocrit 40.1 % (37.0-47.0); Hemoglobin 13.3 g/dl (12.0-16.0); Imm Gran Abs Auto 0.01 X10*3/uL (0.00-0.03); Imm Gran Pct Auto 0.2 % (0.0-0.4); Lymphocytes Absolute Auto 2.3 X10*3/uL (1.2-4.9); Lymphocytes Percent Auto 44.8 % (20-40); Mean Corpuscular HGB Conc 33.2 g/dl (31.0-35.0); Mean Corpuscular Hemoglobin 28.9 pg (27.0-33.0); Mean Platelet Volume 10.3 fL (9.4-12.3); Monocytes Absolute Auto 0.5 X10*3/uL (0.1-1.2); Monocytes Percent Auto 9.9 % (2-11); Neutrophils Absolute Auto 2.1 x10*3/uL (2.0-8.3); Neutrophils Percent Auto 41.8 % (45-73); Platelet Count 214 X10*3/uL (160-400); Red Blood Count 4.61 X10*6/uL (4.20-5.50); Red Cell Distribution Width 14.6 % (11.0-16.0); White Blood Count 5.1 X10*3/uL (4.8-10.8)
[2024-02-29 11:05] LABS: Alanine Aminotransferase 52 U/L (0-31); Albumin Level 3.4 g/dL (3.5-5.0); Alkaline Phosphatase 217 U/L (39-117); Anion Gap 12 (12-20); Aspartate Amino Transferase 67 U/L (5-31); Bilirubin Total 0.6 mg/dL (0.0-1.0); Blood Urea Nitrogen 15 mg/dL (9-16); Calcium 9.4 mg/dL (8.4-10.2); Carbon Dioxide 29 mmol/L (22-29); Chloride 103 mmol/L (96-108); Estimated Glomerular Filt Rate 51; Glucose Random 131 mg/dL (60-115); Potassium 3.3 mmol/L (3.3-5.1); Sodium 141 mmol/L (135-145); Total Protein 7.9 g/dL (6.5-8.0)
[2024-02-29 11:12] LABS: Vitamin B12 969 pg/mL (200-900)
[2024-02-29 11:50] LABS: Creatinine Urine 192.77 mg/dL; Microalbum/Creatinine Ratio Ur 193.4 ug/mg cr (<30)
[2024-02-29 11:52] LABS: Estimated Average Glucose 194 mg/dL; Hemoglobin A1c % 8.4 % (<6.0); Total Hemoglobin (HGBA1C) 3374.4182 umol/L
== END 2024-02-29 09:03 | disposition home or self-care (01) ==
LOC: HO.LAB 09:02
PROVIDERS: PCP Internal Medicine; Visit Provider Internal Medicine
DX: E11.65 Type 2 diabetes mellitus with hyperglycemia (principal); E78.2 Mixed hyperlipidemia; F32.5 Major depressive disorder, single episode, in full remission; R74.01 Elevation of levels of liver transaminase levels
CPT/HCPCS: 36415; 80053; 82043; 82570; 82607; 83036; 85025

== ENCOUNTER 2024-03-08 08:03 | Outpatient (AMB) | payer OTHER, SELFPAY ==
--- NOTE | 2024-03-08 08:31 | MHC.OFFVIS ---
Vital Signs 03/08/24 08:46 Height 5 ft 6 in Weight 203 lb BMI 32.8 BP 159/75 H Blood Pressure Location Rt brachial Position Sitting Pulse 71 Pulse Source Pulse Oximeter Pulse Oximetry (%) 98 Oxygen Delivery Method Room Air Intake Visit Reasons: Radiculopathy, lumbar region Intake Note: Pain today 12/29 Zinc Plating Machine Operator Required: Yes Zinc Plating Machine Operator Language: Vacuum Conditioner Operator Services: Zinc Plating Machine Operator Present Zinc Plating Machine Operator Name: Lisa #[id number] Accompanied by: Self / Same As Patient Allergies iodine Allergy (Unknown, Verified 03/08/24 08:51) rash chest pain Iodinated Contrast Media [IV Contrast Dye] Allergy (Verified 03/08/24 08:51) chest pain, shortness of breath, pupils dilated oxaprozin [Daypro] Adverse Reaction (Unknown, Verified 03/08/24 08:51) gastritis HPI HPI Radiculopathy, lumbar region: Details: Patient is a pleasant 73 years old Yemeni speaking female with history of DM, generalized osteoarthritis, h/o left breast cancer s/p mastectomy, now ProGEL, lumbar degenerative disc disease, chronic low back pain, presents today for initial evaluation of low back pain with bilateral radiculopathy. Denies any recent or past trauma, injury, or falls. Patient has been referred to us by Dr. Louis, Rheumatology. Back pain is axial and also radiates posteriorly into buttocks and bilateral lower extremities with associated numbness and tingling. Patient has significant difficulty with bending forward or extending backwards. Pain affects her daily activities and functioning, mobility, mood, sleep, and social interactions. Denies previous spine surgery or injections. Patient reports upcoming cataract surgery in March. Most recent A1C= 8.4. To this point, patient has not completed dedicated conservative treatments for low back pain, including physical therapy, chiropractic therapy, acupuncture, TENS unit, massage or aquatherapy. Denies any fever or chills, weight loss, abdominal or groin pain, footdrop, weakness, bladder or bowel dysfunction or saddle anesthesia. Location: Lower back radiates down bilateral legs Duration: Chronic pain for many years, worsening over the past two weeks Characteristics of symptom or complaint: Aching, pulsing, throbbing, radiating, shooting, numbness, tingling Aggravating or associated factors: Movements, bending, walking, climbing stairs Relieving factors: Rest, heat therapy, lidocaine patches, tramadol Treatment: None PFSH Medical History Lymphedema of left arm Neuropathy Abnormal mammogram of left breast Degenerative disc disease Obesity Dyslipidemia Obstructive sleep apnea Depression Hypertension Diabetes Surgical History Invasive ductal carcinoma of left breast History of colonoscopy (~07/31/17) History of colonoscopy (~04/24/06) History of tubal ligation Family History Father History of hypertension Mother History of hypercholesterolemia History of hypertension History of diabetes mellitus Paternal Grandfather No problems noted. Paternal Grandmother No problems noted. Maternal Grandfather No problems noted. Maternal Grandmother History of diabetes mellitus Colon cancer Maternal Uncle History of leukemia Social History Household Members: Family Housing: House Are you a primary primary care nurse to a significant other at home: No Do you presently have visiting nurse or other home services: Yes (lunch program) Alcohol intake: never Comment: pt sleeping Patient Tobacco Use Status: Never used Tobacco Second Hand Smoke Exposure: No service: No Current occupational status: disabled Review of Systems Const All systems reviewed & are unremarkable except as noted in HPI and below Physical Exam Vital Signs: Last Vital Signs Pulse 71 03/08/24 08:46 BP 159/75 H 03/08/24 08:46 Pulse Ox 98 03/08/24 08:46 Oxygen Delivery Method Room Air 03/08/24 08:46 BMI result Body Mass Index 32.8 General: Appears afebrile. Alert and oriented. Mood and affect appropriate. Follows and participates in conversation appropriately. Respiratory effort is unlabored. No cough. Able to transition from sit to stand unassisted. Ambulates with bilaterally normal heel strike and toe off. General: Yes no CVA tenderness Back/Spine/Pelvis Other: Limited lumbar ROM due to pain. Antalgic gait with mild limping. Can flex forward to 60-65 degrees and extend to 5-10 degrees before experiencing lumbar pain. Demonstrates 5/5 strength of quadriceps bilaterally as well as flexion/dorsiflexion of bilateral feet against resistance. 2+ pedal pulses bilaterally. Seated straight leg rise with dorsiflexion positive bilaterally. +1 patellar and achilles reflexes bilaterally. Facet loading test positive bilaterally. Rose sign positive bilaterally, Jamin?s reproduces lateral hip pain. No groin pain with I/E hip rotations. Valsalva maneuver negative. Back: no CVA tenderness Cervical Spine: cervical ROM normal, cervical muscular tenderness and No Cervical spine tenderness Thoracic/Lumbar Spine: thoracic and lumbar spine normal to inspection, No Thoracic/lumbar spine scar(s), Lasegue's sign positive bilateral and diffuse, pain with thoraco-lumbar ROM, paraspinal muscle tenderness, No thoracic spinal tenderness and lumbar spinal tenderness (L3-S1) Sacroiliac joints: bilaterally tender to palpation Results Reviewed Results Reviewed: LUMBAR SPINE XRAY 07/16/2011 CLINICAL HISTORY: Low back pain Three views of the lumbar spine were performed. Bone alignment is normal. No fracture-dislocation or bony lesion is seen. There is evidence of degenerative spondylosis at L2-L3 and 3/4. There is disc space narrowing at L5-S1. There is lower lumbar spine facet arthritis. There are multiple small radio opaque densities seen projected over the stomach and right lower quadrant, question representing something on the patient's clothing as it is not identified on the lateral view. IMPRESSION: Multilevel degenerative spondylosis, disc space narrowing and facet arthritis. Assessment & Plan Assessment & Plan (1) Lumbar radiculopathy: Code(s): M54.16 - Radiculopathy, lumbar region Category: Medical (2) Lumbosacral spondylosis: Code(s): M47.817 - Spondylosis without myelopathy or radiculopathy, lumbosacral region Category: Medical (3) Lumbar degenerative disc disease: Code(s): M51.36 - Other intervertebral disc degeneration, lumbar region Category: Medical (4) Chronic low back pain: Code(s): M54.50 - Low back pain, unspecified; G89.29 - Other chronic pain Category: Medical Plan Lumbar spine imaging to assess degree of degenerative changes, any subluxation, listhesis, compression fractures or pars defects. MRI of the lumbar spine to assess for neural integrity and compression. Back pain consistent with facet mediated, discogenic and radicular pain components. The patient is fully educated on all of her diagnoses and all the different treatment plans. Patient will participate in a program to manage their pain including therapy, medication, information was provided today to patient and family to help them understand their condition. Patient reports she has good mental and social support. Continue Tylenol Arthritis, tramadol prn (prescribed by Rheumatology, takes only for severe pain) and gabapentin. Patient is recommended to start physical therapy to reduce pain and optimize mobility, improve strength and neuromuscular coordination. Script provided. Tentatively schedule for bilateral diagnostic L3-L4 DR L5 MBB with local and fluoroscopy for potential Sprint PNS trial or RFA procedures. Expectations, risks and benefits were reviewed. All questions were answered and the patient is in agreement of plan. Follow-up for MRI/xray results and sooner as needed. Orders: Orders XR lumbar spine 4V min Today M47.817 - Spondylosis without myelopathy or radiculopathy, lumbosacral region, M51.36 - Other intervertebral disc degeneration, lumbar region, M54.16 - Radiculopathy, lumbar region PT Evaluation and Treatment Today G89.29 - Other chronic pain, M47.817 - Spondylosis without myelopathy or radiculopathy, lumbosacral region, M51.36 - Other intervertebral disc degeneration, lumbar region, M54.16 - Radiculopathy, lumbar region, M54.50 - Low back pain, unspecified MR lumbar spine wo con Today M47.817 - Spondylosis without myelopathy or radiculopathy, lumbosacral region, M51.36 - Other intervertebral disc degeneration, lumbar region, M54.16 - Radiculopathy, lumbar region Coding Level of Care Code New Pt Level 4 (15100) Complex EM visit Add On G2211 Diagnoses Lumbar radiculopathy M54.16 Lumbosacral spondylosis M47.817 Lumbar degenerative disc disease M51.36 Chronic low back pain M54.50; G89.29
[2024-03-08 08:46] VITALS: BP 159/75; PULSE 71; O2SAT 98; BMI 32.8
== END 2024-03-08 09:08 | disposition home or self-care (01) ==
PROVIDERS: PCP Internal Medicine; Visit Provider Nurse Practitioner Family
DX: M54.16 Radiculopathy, lumbar region (principal); M47.817 Spondylosis without myelopathy or radiculopathy, lumbosacral region; M51.36 Other intervertebral disc degeneration, lumbar region; M54.50 Low back pain, unspecified; G89.29 Other chronic pain
CPT/HCPCS: 99204; G2211

== ENCOUNTER → 2024-03-08 08:03 | Outpatient (BNVA) | payer OTHER, SELFPAY | PROVIDERS: PCP Internal Medicine; Visit Provider Nurse Practitioner Family | DX: M47.817 Spondylosis without myelopathy or radiculopathy, lumbosacral region (principal); M51.36 Other intervertebral disc degeneration, lumbar region; M54.16 Radiculopathy, lumbar region; G89.29 Other chronic pain | CPT/HCPCS: 99202 ==

== ENCOUNTER 2024-03-10 08:58 | Outpatient (REF) | payer OTHER, SELFPAY ==
--- NOTE | ~2024-03-10 | XR_ITS ---
EXAMINATION: XR LUMBOSACRAL SPINE CLINICAL INFORMATION: M54.16 - Radiculopathy, lumbar region COMPARISON: None available. TECHNIQUE: Three views of the lumbosacral spine. FINDINGS: There is a minimal right convex scoliosis. There is normal lordosis. No fracture, or focal bony abnormality. There is a 3 mm degenerative appearing anterolisthesis of L4 on L5. Alignment is otherwise normal. There are mild changes of degenerative disc disease diffusely, with moderate changes at L4-5 and L5-S1. There are hypertrophic degenerative facet changes predominantly L4-S1. Popcorn type calcifications in the central pelvis are consistent with degenerated uterine fibroids. Soft tissues otherwise appear normal. XR/XR lumbar spine 4V min IMPRESSION: 1. No acute findings lumbar spine. 2. [id number] degenerative spondylosis most significant at L4-5 and L5-S1. 3. Minimal right convex scoliosis. Electronically signed by: Jorge A Izquierdo MD 05/20/2024 03:08 PM WILLY
== END 2024-03-10 08:59 | disposition home or self-care (01) ==
LOC: HO.XRAY 08:58
PROVIDERS: PCP Internal Medicine; Visit Provider Nurse Practitioner Family
DX: M54.16 Radiculopathy, lumbar region (principal); M47.817 Spondylosis without myelopathy or radiculopathy, lumbosacral region; M51.36 Other intervertebral disc degeneration, lumbar region
CPT/HCPCS: 72110

== ENCOUNTER → 2024-03-10 09:06 | Outpatient (BNV) | payer OTHER, SELFPAY | PROVIDERS: PCP Internal Medicine; Visit Provider Radiology Diagnostic Radiology | DX: M54.16 Radiculopathy, lumbar region (principal) | CPT/HCPCS: 72100 ==

== ENCOUNTER 2024-04-28 14:00 | Outpatient (AMB) | payer OTHER, SELFPAY ==
--- NOTE | 2024-04-28 14:00 | A.OFFVIS_ITS ---
Vital Signs 3 04/28/24 14:09 Height 5 ft 6 in Weight 195 lb 6 oz BMI 31.5 BP 147/63 H Blood Pressure Location Lt brachial Position Sitting Pulse 61 Intake Visit Reasons: 6 month follow up, breast exam Intake Note: Patient is seen in office for 6 month follow up, breast exam. Pt c/o: no concerns at the time of visit mm sched:05/10/24 Tape Fastener Machine Operator Required: Yes Tape Fastener Machine Operator Language: Estate Planning Counselor Services: Tape Fastener Machine Operator Present Tape Fastener Machine Operator Name: shahbaz NOE Information Interpreted: non-clinical & clinical Rn Clinical: Rn Clinical Present Accompanied by: Daughter Allergies iodine Allergy (Unknown, Verified 04/28/24 14:01) rash chest pain Iodinated Contrast Media [IV Contrast Dye] Allergy (Verified 04/28/24 14:01) chest pain, shortness of breath, pupils dilated oxaprozin [Daypro] Adverse Reaction (Unknown, Verified 04/28/24 14:01) gastritis Medication List - Last Reconciled 04/28/24 by Ziggy Estrada MD acetaminophen ER (Pain Relief (acetaminophen)) 650 mg PO DIRECTED PRN albuterol sulfate 90 mcg/actuation (ProAir HFA) 2 puffs inhalation QID PRN [Alternate Compression Wrap As Directed] aspirin 81 mg PO DAILY beclomethasone dipropionate 80 mcg/actuation (Qvar RediHaler) 1 inh inhalation DAILY carboxymethylcellulose sodium 1% 2 drps ophthalmic (eye) BID PRN cholecalciferol (vitamin D3) 25 mcg PO DAILY liam.stocking,thigh,reg,med As Directed cyanocobalamin (vitamin B-12) (Vitamin B-12) 500 mcg PO DAILY gabapentin 300 mg PO TID lisinopril-hydrochlorothiazide 20-25 mg 1 tab PO DAILY loratadine 10 mg PO DAILY metformin 1,000 mg PO BID rosuvastatin 40 mg PO DAILY sertraline 50 mg PO DAILY silver sulfadiazine 1% 1 appl topical BID tizanidine 2 mg PO TID PRN tramadol 50 mg PO BID PRN zolpidem 5 mg PO BEDTIME PRN HPI Comments Details: 74-year-old female patient returning for follow-up breast examination. She was initially evaluated on 03/27/2020 for a palpable left breast mass noted on self examination. This was confirmed on mammogram and ultrasound and ultrasound- guided core biopsy of 3 areas of the left breast performed. This revealed invasive ductal carcinoma, ER/IN/HER2 Geovanny negative. Patient decided proceed with a modified radical mastectomy performed on 04/16/2020. Final pathology revealed invasive ductal carcinoma, MS BR grade 3 with medullary features; margins were negative, ERPR HER2 Geovanny negative, 0 of 25 axillary lymph nodes with metastatic disease (pT2No). She underwent a AC every 3 weeks x4 followed by Taxotere x4. She reports continued lymphedema in the left arm for which she wears a sleeve mainly at night, which helps. She denies any pain in the chest or arms. Her last mammogram dated 05/10/2023 of the right breast revealed no mammographic evidence of malignancy (BI-RADS 1). She is scheduled for her yearly mammogram on 05/10/2024. [facility] Medical History Lymphedema of left arm Neuropathy Abnormal mammogram of left breast Degenerative disc disease Obesity Dyslipidemia Obstructive sleep apnea Depression Hypertension Diabetes Surgical History (Updated 04/28/24 @ 14:20 by Ziggy Estrada MD) History of modified radical mastectomy of left breast History of cataract surgery Invasive ductal carcinoma of left breast History of colonoscopy (~07/31/17) History of colonoscopy (~04/24/06) History of tubal ligation Family History Father History of hypertension Mother History of hypercholesterolemia History of hypertension History of diabetes mellitus Paternal Grandfather No problems noted. Paternal Grandmother No problems noted. Maternal Grandfather No problems noted. Maternal Grandmother History of diabetes mellitus Colon cancer Maternal Uncle History of leukemia Social History Household Members: Family Housing: House Are you a primary caregivers non medical to a significant other at home: No Do you presently have visiting nurse or other home services: Yes (lunch program) Alcohol intake: never Comment: pt sleeping Patient Tobacco Use Status: Never used Tobacco Second Hand Smoke Exposure: No service: No Current occupational status: disabled Review of Systems Const Denies chills, Denies fever(s), Denies headache(s) and Denies poor appetite ENT Denies headache(s) Card Denies chest pain, Denies rapid heart rate, Denies palpitations and Denies slow heart rate Resp Denies chest congestion, Denies cough, Denies pain on inspiration and Denies wheezing GI Denies abdominal pain, Denies bloating, Denies change in stool character, Denies constipation, Denies diarrhea, Denies nausea, Denies vomiting and Denies hematemesis Denies nipple discharge Skin/Breast Reports breast skin changes, Reports breast pain, Reports breast mass, Denies change in pigmentation, Denies nipple discharge, Denies erythema and Denies rash Neuro Denies headache(s) Endo Denies palpitations Red/Lymph Denies easy bleeding, Denies easy bruising and Denies lymphadenopathy Aller/Immun Denies wheezing Physical Exam Const General: cooperative, healthy appearing, comfortable and no acute distress Chest Other: Left mastectomy incision is clean and intact with no palpable subcutaneous nodules or skin changes. No enlarged lymph nodes noted in the axilla. Right breast with no skin change, nipple retraction, nipple discharge, palpable mass, or enlarged lymph nodes. Chest/axillae images: 2 1. Left modified radical mastectomy Resp Other: Breathing comfortably on room air, no respiratory distress Skin Other: Warm, dry, no rash Neuro Other: Mobility Assessment: 1. 3 meter assessment time (seconds):6 2. Gait observations: Normal balance and gait Extrem Other: Left arm normal range of motion, 2+ pitting edema Normal gait Assessment & Plan Assessment & Plan (1) History of modified radical mastectomy of left breast: Code(s): Z90.12 - Acquired absence of left breast and nipple Category: Surgical (2) Invasive ductal carcinoma of left breast: Code(s): C50.912 - Malignant neoplasm of unspecified site of left female breast Category: Surgical Plan 74-year-old female patient returning for a routine follow-up examination after left breast modified radical mastectomy for invasive ductal carcinoma (pT2N0). She completed chemotherapy and tolerated this well. She complains mainly of lymphedema in the left arm. She continues to wear the sleeve for compression especially at night. She denies any new breast symptoms. Examination today reveals no suspicious findings in the left chest wall or right breast. Most recent mammogram of 05/10/2023 revealed no mammographic evidence of malignancy (BI-RADS 1). She is scheduled for a screening mammogram on 05/10/2024. I recommended she follow-up in 6 months for routine breast examination, sooner p.r.n.. Coding Level of Care Code Est Pt Level 3 (51422) Complex EM visit Add On G2211 Diagnoses History of modified radical mastectomy of left breast Z90.12 Invasive ductal carcinoma of left breast C50.912
[2024-04-28 14:09] VITALS: BP 147/63; PULSE 61; BMI 31.5
== END 2024-04-28 14:20 | disposition home or self-care (01) ==
LOC: HO.HGS 14:01
PROVIDERS: PCP Internal Medicine; Visit Provider Surgery
DX: Z90.12 Acquired absence of left breast and nipple (principal); C50.912 Malignant neoplasm of unspecified site of left female breast
CPT/HCPCS: 99213; G2211

== ENCOUNTER → 2024-04-28 14:00 | Outpatient (BNVA) | payer OTHER, SELFPAY | PROVIDERS: PCP Internal Medicine; Visit Provider Surgery | DX: C50.912 Malignant neoplasm of unspecified site of left female breast (principal); I89.0 Lymphedema, not elsewhere classified; Z90.12 Acquired absence of left breast and nipple; Z92.21 Personal history of antineoplastic chemotherapy | CPT/HCPCS: 99212 ==

== ENCOUNTER 2024-05-05 10:44 | Outpatient (REF) | payer OTHER, SELFPAY ==
[2024-05-05 14:24] LABS: Estimated Average Glucose 166 mg/dL; Hemoglobin A1C 195.7668 umol/L; Hemoglobin A1c % 7.4 % (<6.0); Total Hemoglobin (HGBA1C) 3415.2827 umol/L
[2024-05-05 14:41] LABS: Folate 12.9 ng/mL (> or = 4.0); Vitamin B12 845 pg/mL (200-900)
[2024-05-05 16:15] LABS: Alanine Aminotransferase 38 U/L (0-31); Albumin Level 3.5 g/dL (3.5-5.0); Alkaline Phosphatase 185 U/L (39-117); Anion Gap 9 (12-20); Aspartate Amino Transferase 52 U/L (5-31); Bilirubin Total 0.4 mg/dL (0.0-1.0); Blood Urea Nitrogen 13 mg/dL (9-16); Calcium 9.6 mg/dL (8.4-10.2); Carbon Dioxide 30 mmol/L (22-29); Chloride 104 mmol/L (96-108); Estimated Glomerular Filt Rate 40; Glucose Random 171 mg/dL (60-115); Potassium 3.8 mmol/L (3.3-5.1); Sodium 139 mmol/L (135-145); Total Protein 7.9 g/dL (6.5-8.0)
== END 2024-05-05 10:45 | disposition home or self-care (01) ==
LOC: HO.10HDL 10:44
PROVIDERS: Visit Provider Internal Medicine
DX: E11.65 Type 2 diabetes mellitus with hyperglycemia (principal); G31.84 Mild cognitive impairment of uncertain or unknown etiology; R74.01 Elevation of levels of liver transaminase levels; R80.8 Other proteinuria
CPT/HCPCS: 36415; 80053; 82607; 82746; 83036

== ENCOUNTER 2024-05-10 09:57 | Outpatient (REF) | payer OTHER, SELFPAY ==
--- NOTE | ~2024-05-10 | MM_ITS ---
EXAMINATION: MM SCREENING DIGITAL BREAST TOMOSYNTHESIS, BILATERAL CLINICAL INFORMATION: Screening. Asymptomatic. Left mastectomy. COMPARISON: Mammography: This study is compared with prior exams dating back to TECHNIQUE: Digital breast tomosynthesis is performed in both the craniocaudal and mediolateral oblique views along with computer-aided detection (CAD). Synthesized 2D images are generated from the tomosynthesis. FINDINGS: There are scattered areas of fibroglandular density (ACR BI-RADS breast composition Category b). There are no significant masses, abnormal calcifications, or other abnormalities. MM/MM tomosynthesis screening RT IMPRESSION: No mammographic evidence of malignancy. ASSESSMENT: BI-RADS BI-RADS 1 - Negative RECOMMENDATION: Routine annual mammography screening. 1 year F/U This examination should not preclude the clinical evaluation of a suspicious palpable abnormality. This patient's information was entered into a reminder system with a target due date for their next mammogram. Electronically signed by: Bridgett Choi DO 05/18/2024 08:17 AM WILLY
== END 2024-05-10 09:58 | disposition home or self-care (01) ==
LOC: HO.MAMMO 09:57
PROVIDERS: PCP Internal Medicine; Visit Provider Surgery
DX: Z12.31 Encounter for screening mammogram for malignant neoplasm of breast (principal)
CPT/HCPCS: 77063; 77067

== ENCOUNTER → 2024-05-10 10:15 | Outpatient (BNV) | payer OTHER, SELFPAY | PROVIDERS: PCP Internal Medicine; Visit Provider Internal Medicine | DX: Z12.31 Encounter for screening mammogram for malignant neoplasm of breast (principal) | CPT/HCPCS: 77063; 77067 ==

== ENCOUNTER 2024-05-27 07:57 | Outpatient (RCR) | payer OTHER, SELFPAY ==
--- NOTE | 2024-06-17 07:48 | MHC.PT.DC ---
[facility] [place] Office [place] Office [place] Office [address] Christianne Alvarenga [address] [phone] F: [phone] F: [phone] F: [phone] F: [phone] Physical Therapy Discharge Report Diagnosis: MADISON LOW BACK PAIN (KP) Date of Surgery: Date of Evaluation: 04/29/24 Date of Discharge: 06/02/24 Treatments to Date: 6 Cancellations to Date: 0 No Shows to Date: 0 Discharge Status: Achieved Goals Improved Function Independent with HEP Discharge Summary: Teri has met goals of PT and feels confident with home program. Symptoms have resolved and Teri demonstrates improved LE strength and ROM. DC to HEP on this date. Electronically signed by: Funmi Siegel PT DPT Please sign and return to therapist. Thank you for your referral.
== END 2024-06-17 07:47 | disposition home or self-care (01) ==
LOC: HO.PT 07:57
PROVIDERS: PCP Internal Medicine; Visit Provider Nurse Practitioner Family
DX: M51.369 Other intervertebral disc degeneration, lumbar region without mention of lumbar back pain or lower extremity pain (principal); M47.817 Spondylosis without myelopathy or radiculopathy, lumbosacral region; M54.16 Radiculopathy, lumbar region
CPT/HCPCS: 97110; 97161; 97530

== ENCOUNTER 2024-06-30 06:23 | Outpatient (REF) | payer OTHER, SELFPAY | END 2024-06-30 06:24 | disposition home or self-care (01) | LOC: CF 06:23 | PROVIDERS: Visit Provider Internal Medicine | DX: Z13.89 Encounter for screening for other disorder (principal) ==

== ENCOUNTER 2024-08-18 09:48 | Outpatient (REF) | payer OTHER, SELFPAY ==
[2024-08-18 10:28] LABS: Estimated Average Glucose 240 mg/dL; Hemoglobin A1C 307.9568 umol/L; Total Hemoglobin (HGBA1C) 3599.9061 umol/L
[2024-08-18 11:07] LABS: Alanine Aminotransferase 50 U/L (0-31); Albumin Level 3.4 g/dL (3.5-5.0); Alkaline Phosphatase 247 U/L (39-117); Anion Gap 10 (12-20); Aspartate Amino Transferase 78 U/L (5-31); Bilirubin Total 0.9 mg/dL (0.0-1.0); Blood Urea Nitrogen 8 mg/dL (9-16); Calcium 9.6 mg/dL (8.4-10.2); Carbon Dioxide 31 mmol/L (22-29); Chloride 101 mmol/L (96-108); Estimated Glomerular Filt Rate > 60; Glucose Random 229 mg/dL (60-115); Potassium 3.6 mmol/L (3.3-5.1); Sodium 138 mmol/L (135-145); Total Protein 8.6 g/dL (6.5-8.0)
--- OUTSIDE RECORDS SUMMARY | 2024-08-18 11:15 | XMS_ITS | Encounter Summary ---
Author Organization [facility] Address [address] [place] [address] Care Team Providers Care Distiller Name Role Phone Unavailable Primary Care Provider Unavailabl e Encounter Details Date Type Department Care Team (Late st Contact Info) Description 08/11/2024 Scanned Document [facility] Emergency Department [address] [place] [address] Shabana Klein Social History Tobacco Use Types Packs/Day Years Used Date Smoking Tobacco: Never Assessed Sex and Gender Information Value Date Recorded Sex Assigned at Not on file Gender Identity Not on file Sexual Orientation Not on file documented as of this encounter Plan of Treatment Not on file documented as of this encounter Visit Diagnoses Not on filedocumented in this encounter
--- OUTSIDE RECORDS SUMMARY | 2024-08-18 11:15 | XMS_ITS | Encounter Summary ---
Author Organization [facility] Address [address] [place] [address] Care Team Providers Care Hat Marker Name Role Phone Unavailable Primary Care Provider Unavailabl e Encounter Details Date Type Department Care Team (Late st Contact Info) Description 08/11/2024 Scanned Document [facility] Emergency Department [address] [place] [address] Shabana Klein Social History Tobacco [...]
--- OUTSIDE RECORDS SUMMARY | 2024-08-18 11:15 | XMS_ITS | Clinical Summary ---
Author Organization [facility] Address [address] [place] [address] Care Team Providers Care Analytics Intern Name Role Phone Unavailable Primary Care Provider Unavailabl e Encounters Date Type Department Care Team Description 08/11/2024 Scanned Document [facility] Emergency Department [address] [place] [phone] Shabana Klein 08/11/2024 Scanned Document [facility] Emergency Department [address] [place] [address] Shabana Klein from Last 3 Months Social History Tobacco Use Types Packs/Day Years Used Date Smoking Tobacco: Never Assessed Sex and Gender Information Value Date Recorded Sex Assigned at Not on file Gender Identity Not on file Sexual Orientation Not on file Plan of Treatment Health Maintenance Due Date Last Done Comments Hepatitis C Virus Screening 1952 DTaP/Tdap/Td Vaccines (1 - Tdap) 1971 Pneumococcal Vaccines 50+ (1 of 1 - PCV) 2002 Zoster (Shingles) Vaccine (1 of 2) 2002 COVID-19 Vaccine ( - 2023-2 5 season) 2024 RSV Vaccine 60 years and old er and Patients (1 - 1-dose 75+ series) 2027 Hepatitis B Vaccines Aged Out No long er eligible based on patient's age to complete this topic
--- OUTSIDE RECORDS SUMMARY | 2024-08-18 11:15 | XMS_ITS | Patient Health Record ---
[facility] Address [address] [place] [address] Care Team Providers Care Etcher Hand Name Role Phone Julieth Pérez Primary Care Provider Unavailab Jacey Mackenzie Unavailable [phone] Julieth Pérez Unavailable Unavailable Allergies Allergen (clinical drug ingredient) Drug/Non Drug Allergy documented on EMR Reaction Allergy Type Onset Date Status Iodine Unknown Drug Allergy Active Reason For Referral No Information Medications Medication SIG (Take, Route, Frequency, Duration) Notes Start Date End Date Status Caltrate 600 Active Tylenol Extra Strength 500 MG 1 tablet as needed Orally every 6 hrs Active Vitamin D Active ProAir HFA Active Qvar RediHaler 80 MCG/ACT 1 puff Inhalat ion Once a day Active traMADol HCl 50 MG 1 tablet as needed O rally Once a day Active Arthritis Pain Formula Active Econazole Nitrate 1 % 1 application Exte rnally Once a day for 14 day(s) Active Omeprazole 20 MG 1 capsule 30 minutes before morning meal Orally Once a day for 30 day(s) Active Refresh Dry Eye Therapy Active Sertraline HCl 50 MG 1 tablet Orally Onc e a day for 30 day(s) Active Lisinopril-hydroCHLOROthia zide 20-25 MG 1 tablet Orally Once a day for 30 day(s) Active metFORMIN HCl 1000 MG 1 tablet with a me al Orally Once a day for 30 day(s) Active Gabapentin 300 MG 1 capsule Orally Onc e a day for 30 day(s) Active Aspirin 81 MG 1 tablet Orally Once a day for 30 day(s) Active Extra Depth Orthopedic Shoes (1 Pair) with Customized Heat Molded Multidensity Innersoles (3 Pair) as directed Dx: NIDDM (E11.9), Hammertoe Foot Deformity (M20.41,M20.42), Preulcerative Skin Lesion(s) (L85.1) 07/10/2022 Active Atorvastatin Calcium 40 MG 1 tablet Orally Once a day Active Immunizations Vaccine Route Administration Date Status Comme nts Influenza Unknown 2022 Administered Social History Tobacco Use: Social History Observation Description Date Details (start date - stop date) Never Smoker NA - NA Tobacco Use/Smoking Question Answer Notes Are you a: nonsmoker Additional Findings: Tobacco Non-User Aggressive non-smoker Alcohol Screen Question Answer Notes Did you have a drink containing alcohol in the p ast year? No Points 0 Interpretation Negative Problems Problem Type SNOMED Code ICD Code Onset Dates Problem Status W/U Status Risk Notes Problem Acquired hammer toe of right foot (57851295485428 05) Other hammer toe(s) (acquired), right foot (M20.41) Active confirmed Problem Acquired hammer toe of left foot (95467894032449 03) Other hammer toe(s) (acquired), left foot (M20.42) Active confirmed Problem [id number] Type 2 diabetes mellitus without complication, without long-term current use of insulin (E11.9) Active confirmed Plan Of Treatment No Information Insurance Providers Payer Name Payer Address Payer Phone Subscriber Number Group Number Insured Name Patient Relationship to Insured Coverage Start Date Coverage End Date [facility] SCO Claims [address] [place] [id number] [phone] [facility] [id number] Tiburcio Ambriz Self - patient is the insured Medical (General) History Medical History History ICD Code type II diabetes Hypertension Hypercholesterolemia breast cancer Arthritis Surgical History Surgery Date(Month/Year)
== END 2024-08-18 09:49 | disposition home or self-care (01) ==
LOC: HO.LAB 09:48
PROVIDERS: PCP Internal Medicine; Visit Provider Internal Medicine
DX: E11.65 Type 2 diabetes mellitus with hyperglycemia (principal); I10 Essential (primary) hypertension; R74.01 Elevation of levels of liver transaminase levels; R80.8 Other proteinuria
CPT/HCPCS: 36415; 80053; 83036

== ENCOUNTER 2024-10-25 08:27 | Outpatient (AMB) | payer OTHER, SELFPAY ==
--- NOTE | 2024-10-25 08:51 | MHC.OFFVIS ---
Vital Signs 10/25/24 08:56 Height 5 ft 6 in Weight 191 lb 6 oz BMI 30.9 BP 134/65 Blood Pressure Location Lt brachial Position Sitting Pulse 86 Intake Visit Reasons: 6 month follow up, breast exam Intake Note: Patient is seen in office for 6 month follow up, breast exam. Pt c/o: denies any concerns or changes mm:05/10/24 Mobile Device Developer Required: Yes Mobile Device Developer Language: Physician General Internal Medicine Services: Mobile Device Developer Present Mobile Device Developer Name: Sumaya NOE Information Interpreted: non-clinical & clinical Emergency Department Clinician: Emergency Department Clinician Present Accompanied by: Self / Same As Patient Allergies iodine Allergy (Unknown, Verified 10/25/24 08:56) rash chest pain Iodinated Contrast Media [IV Contrast Dye] Allergy (Verified 10/25/24 08:56) chest pain, shortness of breath, pupils dilated oxaprozin [Daypro] Adverse Reaction (Unknown, Verified 10/25/24 08:56) gastritis HPI Comments Details: 74-year-old female patient returning for follow-up breast examination. She was initially evaluated on 03/27/2020 for a palpable left breast mass noted on self examination. This was confirmed on mammogram and ultrasound and ultrasound-guided core biopsy of 3 areas of the left breast performed. This revealed invasive ductal carcinoma, ER/WV/HER2 Geovanny negative. Patient decided proceed with a modified radical mastectomy performed on 04/16/2020. Final pathology revealed invasive ductal carcinoma, MS BR grade 3 with medullary features; margins were negative, ERPR HER2 Geovanny negative, 0 of 25 axillary lymph nodes with metastatic disease (pT2No). She underwent a AC every 3 weeks x4 followed by Taxotere x4. She reports continued lymphedema in the left arm for which she wears a sleeve mainly at night, which helps. She denies any pain in the chest or arms. Her last mammogram dated 05/20/2024 of the right breast revealed no mammographic evidence of malignancy (BI-RADS 1). She is scheduled for her yearly mammogram on 05/16/2025. [facility]LY [facility] Medical History Lymphedema of left arm Neuropathy Abnormal mammogram of left breast Degenerative disc disease Obesity Dyslipidemia Obstructive sleep apnea Depression Hypertension Diabetes Surgical History History of modified radical mastectomy of left breast History of cataract surgery Invasive ductal carcinoma of left breast History of colonoscopy (~07/31/17) History of colonoscopy (~04/24/06) History of tubal ligation Family History Father History of hypertension Mother History of hypercholesterolemia History of hypertension History of diabetes mellitus Paternal Grandfather No problems noted. Paternal Grandmother No problems noted. Maternal Grandfather No problems noted. Maternal Grandmother History of diabetes mellitus Colon cancer Maternal Uncle History of leukemia Social History Household Members: Family Housing: House Are you a primary healthcare interpreter to a significant other at home: No Do you presently have visiting nurse or other home services: Yes (lunch program) Alcohol intake: never Comment: pt sleeping Patient Tobacco Use Status: Never used Tobacco Second Hand Smoke Exposure: No service: No Current occupational status: disabled Review of Systems Const Denies chills, Denies fever(s), Denies headache(s) and Denies poor appetite ENT Denies headache(s) Card Denies chest pain, Denies rapid heart rate, Denies palpitations and Denies slow heart rate Resp Denies chest congestion, Denies cough, Denies pain on inspiration and Denies wheezing GI Denies abdominal pain, Denies bloating, Denies change in stool character, Denies constipation, Denies diarrhea, Denies nausea, Denies vomiting and Denies hematemesis Denies nipple discharge Skin/Breast Reports breast skin changes, Reports breast pain, Reports breast mass, Denies change in pigmentation, Denies nipple discharge, Denies erythema and Denies rash Neuro Denies headache(s) Endo Denies palpitations Red/Lymph Denies easy bleeding, Denies easy bruising and Denies lymphadenopathy Aller/Immun Denies wheezing Physical Exam Const General: cooperative, healthy appearing, comfortable and no acute distress Chest Other: Left mastectomy incision is clean and intact with no palpable subcutaneous nodules or skin changes. No enlarged lymph nodes noted in the axilla. Right breast with no skin change, nipple retraction, nipple discharge, palpable mass, or enlarged lymph nodes. Chest/axillae images: 1. Resp Other: Breathing comfortably on room air, no respiratory distress Skin Other: Warm, dry, no rash Neuro Other: Mobility Assessment: 1. 3 meter assessment time (seconds):6 2. Gait observations: Normal balance and gait Extrem Other: Left arm normal range of motion, 2+ pitting edema Normal gait Assessment & Plan Assessment & Plan (1) History of modified radical mastectomy of left breast: Code(s): Z90.12 - Acquired absence of left breast and nipple Category: Surgical (2) Invasive ductal carcinoma of left breast: Code(s): C50.912 - Malignant neoplasm of unspecified site of left female breast Category: Surgical Plan 74-year-old female patient returning for a routine follow-up examination after left breast modified radical mastectomy for invasive ductal carcinoma (pT2N0). She completed chemotherapy and tolerated this well. She complains mainly of lymphedema in the left arm. She continues to wear the sleeve for compression especially at night. She denies any new breast symptoms. Examination today reveals no suspicious findings in the left chest wall or right breast. Most recent mammogram of 05/20/2025 revealed no mammographic evidence of malignancy (BI-RADS 1). She is scheduled for a screening mammogram on 05/16/2025. I recommended she follow-up in 6 months for routine breast examination, sooner p.r.n.. Coding Level of Care Code Est Pt Level 3 (52858) Complex EM visit Add On G2211 Diagnoses History of modified radical mastectomy of left breast Z90.12 Invasive ductal carcinoma of left breast C50.912
[2024-10-25 08:56] VITALS: BP 134/65; PULSE 86; BMI 30.9
== END 2024-10-25 09:05 | disposition home or self-care (01) ==
LOC: HO.HGS 08:28
PROVIDERS: PCP Internal Medicine; Visit Provider Surgery
DX: Z90.12 Acquired absence of left breast and nipple (principal); C50.912 Malignant neoplasm of unspecified site of left female breast
CPT/HCPCS: 99213; G2211

== ENCOUNTER → 2024-10-25 08:27 | Outpatient (BNVA) | payer OTHER, SELFPAY | PROVIDERS: PCP Internal Medicine; Visit Provider Surgery | DX: C50.912 Malignant neoplasm of unspecified site of left female breast (principal); Z90.12 Acquired absence of left breast and nipple | CPT/HCPCS: 99212 ==

== ENCOUNTER 2024-11-10 09:58 | Outpatient (REF) | payer OTHER, SELFPAY ==
--- OUTSIDE RECORDS SUMMARY | 2024-11-10 10:20 | XMS_ITS | Patient Health Record ---
Author [facility] Address [address] [place] [address] Care Team Providers Care Plastic Molder Name Role Phone Julieth Pérez Primary Care Provider Unavailab Jacey Mackenzie Unavailable [phone] Julieth Pérez Unavailable Unavailable Allergies Allergen (clinical [...] Problem Acquired hammer toe of right foot (53736606078265 05) Other hammer toe(s) (acquired), right foot (M20.41) Active confirmed Problem Acquired hammer toe of left foot (13482386080702 03) Other hammer toe(s) (acquired), left foot (M20.42) Active confirmed Problem [id number] Type 2 diabetes mellitus without complication, without long-term current use of insulin (E11.9) Active confirmed Plan Of Treatment No Information Insurance Providers Payer Name Payer Address Payer Phone Subscriber Number Group Number Insured Name Patient Relationship to Insured Coverage Start Date Coverage End Date [facility] SCO Claims [address] [place] [phone] [facility] [id number] Tiburcio Ambriz Self - patient is the insured Medical (General) History Medical History History ICD Code type II diabetes Hypertension Hypercholesterolemia breast cancer Arthritis Surgical History Surgery Date(Month/Year)
--- OUTSIDE RECORDS SUMMARY | 2024-11-10 10:20 | XMS_ITS | Encounter Summary ---
Author Organization [facility] Address [address] [place] [address] Care Team Providers Care Pharmacy Affairs Assistant Name Role Phone Unavailable Primary Care Provider Unavailabl e Encounter Details Date Type Department Care Team (Late st Contact Info) Description 08/11/2024 Scanned Document [facility] Emergency Department [address] [place] [address] Shabana Klein Social History Tobacco Use Types Packs/Day Years Used Date Smoking Tobacco: Never Assessed Comments Unknown Sex and Gender Information Value Date Recorded Sex Assigned at Not on file Legal Sex Female 6:41 PM EST Gender Identity Not on file Sexual Orientation Not on file documented as of this encounter Plan of Treatment Not on file documented as of this encounter Visit Diagnoses Not on filedocumented in this encounter
--- OUTSIDE RECORDS SUMMARY | 2024-11-10 10:20 | XMS_ITS | Clinical Summary ---
Author Organization [facility] Address [address] [place] [address] Care Team Providers Care Capacity Planning Manager Name Role Phone Unavailable Primary Care Provider Unavailabl e Social History Tobacco Use Types Packs/Day Years [...]
--- OUTSIDE RECORDS SUMMARY | 2024-11-10 10:20 | XMS_ITS ---
Author Name [facility] Organization Unknown Care Team Organization Name Specialty Phone Email Start Date End [facility] 08/11/2024
--- OUTSIDE RECORDS SUMMARY | 2024-11-10 10:20 | XMS_ITS | Encounter Summary ---
Author Organization [facility] Address [address] [place] [address] Care Team Providers Care Focus Puller Name Role Phone Unavailable Primary Care Provider Unavailabl e Encounter Details Date Type Department Care Team (Late st Contact Info) Description 08/11/2024 Scanned Document [facility] Emergency Department [address] [place] [address] Shabana Klein Social History Tobacco [...]
[2024-11-10 11:04] LABS: Estimated Average Glucose 189 mg/dL; Hemoglobin A1c % 8.2 % (<6.0); Total Hemoglobin (HGBA1C) 3546.9267 umol/L
[2024-11-10 11:33] LABS: Alanine Aminotransferase 39 U/L (0-31); Albumin Level 3.3 g/dL (3.5-5.0); Alkaline Phosphatase 212 U/L (39-117); Anion Gap 11 (12-20); Aspartate Amino Transferase 62 U/L (5-31); Bilirubin Total 0.7 mg/dL (0.0-1.0); Blood Urea Nitrogen 10 mg/dL (9-16); Calcium 9.8 mg/dL (8.4-10.2); Carbon Dioxide 27 mmol/L (22-29); Chloride 107 mmol/L (96-108); Estimated Glomerular Filt Rate 54; Glucose Random 192 mg/dL (60-115); Potassium 3.8 mmol/L (3.3-5.1); Sodium 141 mmol/L (135-145); Total Protein 7.7 g/dL (6.5-8.0)
== END 2024-11-10 09:59 | disposition home or self-care (01) ==
LOC: HO.LAB 09:58
PROVIDERS: PCP Internal Medicine; Visit Provider Internal Medicine
DX: E11.65 Type 2 diabetes mellitus with hyperglycemia (principal); I10 Essential (primary) hypertension; R74.01 Elevation of levels of liver transaminase levels; R80.8 Other proteinuria
CPT/HCPCS: 36415; 80053; 83036

== ENCOUNTER 2025-02-21 07:43 | Outpatient (REF) | payer OTHER, SELFPAY ==
--- OUTSIDE RECORDS SUMMARY | 2025-02-21 07:46 | XMS_ITS | Encounter Summary ---
Author Organization [facility] Address [address] [facility] [address] [place] [address] Care Team Providers Care Sheet Metal Worker Maintenance Name Role Phone Unavailable Primary Care Provider Unavailabl e Encounter Details Date Type Department Care Team (Latest Contact Info) Description 04/19/2019 Abstract [facility] CONVERSIONS Dental, Provider, DDS Social History Tobacco Use Types Packs/Day Years Used Date Smoking Tobacco: Never Assessed Comments Unknown Sex and Gender Information Value Date Recorded Sex Assigned at Female 04/21/2022 10:27 AM EDT Legal Sex Female 10:27 AM EDT Gender Identity Female 04/21/2022 10:27 AM EDT Sexual Orientation Don't know 04/21/2022 10 :27 AM EDT documented as of this encounter Plan of Treatment Not on file documented as of this encounter Visit Diagnoses Not on filedocumented in this encounter
--- OUTSIDE RECORDS SUMMARY | 2025-02-21 07:47 | XMS_ITS | Clinical Summary ---
Author Organization [facility] Address [address] [facility] [address] [place] [address] Care Team Providers Care Trouble Lineman Name Role Phone Unavailable Primary Care Provider Unavailabl e Social History Tobacco Use Types Packs/Day Years Used Date Smoking Tobacco: Never Assessed Comments Unknown Sex and Gender Information Value Date Recorded Sex Assigned at Female 04/21/2022 10:27 AM EDT Legal Sex Female 10:27 AM EDT Gender Identity Female 04/21/2022 10:27 AM EDT Sexual Orientation Don't know 04/21/2022 10 :27 AM EDT Plan of Treatment Health Maintenance Due Date Last Done Comments CT Colonography 1952 Colonoscopy 1952 Colorectal Cancer Screening 1952 Depression Screening 1950 FIT DNA/Cologuard 1952 FIT 1952 FOBT 1950 Sigmoidoscopy 1952 Alcohol/Substance Use Screening 1964 Tobacco Screening 1964 Hepatitis C Screening 1970 Mammogram 1992 Zoster Vaccines (3 of 3) 05/10/2018 018, 12/17/2015, 07/19/2013 Pneumococcal Vaccine: 50+ Years (2 of 2 - PCV) 03/15/2019 03/15/2018 COVID-19 Vaccine (4 - 2024- season) 2025 05/29/2021, 12/12/2020, 11/21/2020 Influenza Vaccine (#1) 2025 , 05/07/2023, 05/23/2021, Additional history exists RSV Patients and Patients Aged 60 years or older (1 - 1-dose 75+ series) 2027 DTaP/Tdap/Td Vaccines (2 - Td or Tdap) 03/15/2028 03/15/2018 HIB Vaccines Aged Out No longer eligi ble based on patient's age to complete this topic HPV Vaccines Aged Out No longer eligi ble based on patient's age to complete this topic Hepatitis A Vaccines Aged Out No long er eligible based on patient's age to complete this topic Hepatitis B Vaccines Aged Out No long er eligible based on patient's age to complete this topic IPV Vaccines Aged Out No longer eligi ble based on patient's age to complete this topic Meningococcal B Vaccine Aged Out No l onger eligible based on patient's age to complete this topic Meningococcal Vaccine Aged Out No billie gaurav eligible based on patient's age to complete this topic RSV under 20 months Aged Out No longe r eligible based on patient's age to complete this topic Rotavirus Vaccines Aged Out No longer eligible based on patient's age to complete this topic
--- OUTSIDE RECORDS SUMMARY | 2025-02-21 07:47 | XMS_ITS ---
Author Name [facility] Organization Unknown Care Team Organization Name Specialty Phone Email Start Date End [facility] 08/11/2024
--- OUTSIDE RECORDS SUMMARY | 2025-02-21 07:47 | XMS_ITS | Clinical Summary ---
Author Organization [facility] Address [address] [place] [address] Care Team Providers Care Cardiopulmonary Physical Therapist Name Role Phone Unavailable Primary Care Provider [...]
--- OUTSIDE RECORDS SUMMARY | 2025-02-21 07:47 | XMS_ITS | Encounter Summary ---
Author Organization [facility] Address [address] [place] [address] Care Team Providers Care Product Safety Officer Name Role Phone Unavailable Primary Care Provider Unavailabl e Encounter Details Date Type Department Care Team (Late st Contact Info) Description 08/11/2024 Scanned Document [facility] Emergency Department [address] [place] [address] Shabana Klein Social History Tobacco [...]
--- OUTSIDE RECORDS SUMMARY | 2025-02-21 07:47 | XMS_ITS | Patient Health Record ---
[facility] Address [address] [place] [address] Care Team Providers Care Fringe Maker Name Role Phone Julieth Pérez Primary Care Provider Unavailab Jacey Mackenzie Unavailable [phone] Julieth Pérez Unavailable Unavailable Allergies Allergen (clinical [...] % 1 application Exte rnally Once a day; Duration: 14 day(s) Active Omeprazole 20 MG 1 capsule 30 minutes before morning meal Orally Once a day; Duration: 30 day(s) Active Refresh Dry Eye Therapy Active Sertraline HCl 50 MG 1 tablet Orally Onc e a day; Duration: 30 day(s) Active Lisinopril-hydroCHLOROthia zide 20-25 MG 1 tablet Orally Once a day; Duration: 30 day(s) Active metFORMIN HCl 1000 MG 1 tablet with a me al Orally Once a day; Duration: 30 day(s) Active Gabapentin 300 MG 1 capsule Orally Onc e a day; Duration: 30 day(s) Active Aspirin 81 MG 1 tablet Orally Once a day; Duration: 30 day(s) Active Extra Depth Orthopedic Shoes [...] Problem Acquired hammer toe of right foot (4712890402889356 ) Other hammer toe(s) (acquired), right foot (M20.41) Active confirmed Problem Other hammer toe(s) (acquired), left foot (M20.42) Active confirmed Problem Type II diabetes mellitus without complication ([id number]) Type 2 diabetes mellitus without complication, without long-term current use of insulin (E11.9) Active confirmed Plan Of Treatment No Information Insurance Providers Payer Name Payer Address Payer Phone Subscriber Number Group Number Insured Name Patient Relationship to Insured Coverage Start Date Coverage End Date [facility] SCO Claims [address] [place] [phone] [id number] Tiburcio Ambriz Self - patient is the insured Medical (General) History Medical History History ICD Code type II diabetes Hypertension Hypercholesterolemia breast cancer Arthritis Surgical History Surgery Date(Month/Year)
--- OUTSIDE RECORDS SUMMARY | 2025-02-21 07:47 | XMS_ITS | Encounter Summary ---
Author Organization [facility] Address [address] [place] [address] Care Team Providers Care Tool/Die Maker Name Role Phone Unavailable Primary Care Provider Unavailabl e Encounter Details Date Type Department Care Team (Late st Contact Info) Description 08/11/2024 Scanned Document [facility] Emergency Department [address] [place] [address] Shabana Klein Social History Tobacco [...]
[2025-02-21 08:54] LABS: Hemoglobin A1C 299.2843 umol/L; Total Hemoglobin (HGBA1C) 3555.7233 umol/L
[2025-02-21 09:34] LABS: Alanine Aminotransferase 24 U/L (0-31); Albumin Level 3.4 g/dL (3.5-5.0); Alkaline Phosphatase 216 U/L (39-117); Anion Gap 10 (12-20); Aspartate Amino Transferase 46 U/L (5-31); Blood Urea Nitrogen 11 mg/dL (9-16); Calcium 9.4 mg/dL (8.4-10.2); Carbon Dioxide 33 mmol/L (22-29); Chloride 102 mmol/L (96-108); Estimated Glomerular Filt Rate > 60; Potassium 3.6 mmol/L (3.3-5.1); Sodium 141 mmol/L (135-145); Total Protein 7.7 g/dL (6.5-8.0)
== END 2025-02-21 07:44 | disposition home or self-care (01) ==
LOC: HO.LAB 07:43
PROVIDERS: PCP Internal Medicine; Visit Provider Internal Medicine
DX: I10 Essential (primary) hypertension (principal); E11.65 Type 2 diabetes mellitus with hyperglycemia; R74.01 Elevation of levels of liver transaminase levels; R80.8 Other proteinuria
CPT/HCPCS: 36415; 80053; 83036

== ENCOUNTER 2025-05-17 07:30 | Outpatient (REF) | payer OTHER, SELFPAY ==
--- NOTE | ~2025-05-17 | MM_ITS ---
EXAMINATION: MM SCREENING DIGITAL BREAST TOMOSYNTHESIS, RIGHT CLINICAL INFORMATION: Screening. Asymptomatic. Personal history of left mastectomy for invasive ductal carcinoma diagnosed on ultrasound-guided needle core biopsy on March 27, 2020. COMPARISON: Comparison made to multiple prior, most recent May 10, 2024, and most remote July 02, 2017. TECHNIQUE: Digital breast tomosynthesis is performed in mediolateral oblique and craniocaudal views along with computer-aided detection (CAD). Synthesized 2D images are generated from the tomosynthesis. FINDINGS: BREAST COMPOSITION: There are scattered areas of fibroglandular density. RIGHT BREAST: No significant masses, suspicious calcifications or other abnormalities are seen. MM/MM screening mammo unilat RT IMPRESSION: RIGHT BREAST: Negative, no mammographic evidence of malignancy. Normal interval follow-up is recommended in 12 months. ASSESSMENT: BI-RADS: Category 1: Negative RECOMMENDATION: Routine annual mammography screening. FOLLOW-UP: 1 year F/U This examination should not preclude the clinical evaluation of a suspicious palpable abnormality. This patient's information was entered into a reminder system with a target due date for their next mammogram. Electronically signed by: Eri Walker MD 05/17/2025 07:44 PM [facility]
--- OUTSIDE RECORDS SUMMARY | 2025-05-17 07:34 | XMS_ITS | Encounter Summary ---
Author Organization [facility] Address [address] [place] [address] Care Team Providers Care Correctional Officer Captain Name Role Phone Unavailable Primary Care Provider Unavailabl e Encounter Details Date Type Department Care Team (Late st Contact Info) Description 08/11/2024 Scanned Document [facility] Emergency Department [address] [place] [address] Shabana Klein Social History Tobacco [...]
--- OUTSIDE RECORDS SUMMARY | 2025-05-17 07:34 | XMS_ITS | Encounter Summary ---
Author Organization [facility] Address [address] [facility] [address] [place] [address] Care Team Providers Care River Boat Captain Name Role Phone Unavailable Primary Care Provider Unavailabl e Encounter Details Date Type Department Care Team (Latest Contact Info) Description 04/19/2019 Abstract [facility] CONVERSIONS Dental, Provider, DDS Social History [...]
--- OUTSIDE RECORDS SUMMARY | 2025-05-17 07:34 | XMS_ITS | Patient Health Record ---
[facility] Address [address] [place] [address] Care Team Providers Care Charcoal Unloader Name Role Phone Julieth Pérez Primary Care Provider Unavailab Jacey Mackenzie Unavailable [phone] Julieth Pérez Unavailable Unavailable Allergies Allergen (clinical [...] Problem Acquired hammer toe of right foot (4810575517761307 ) Other hammer toe(s) (acquired), right foot (M20.41) Active confirmed Problem Acquired hammer toe of left foot (0743903075033546 ) Other hammer toe(s) (acquired), left foot (M20.42) Active confirmed Problem Type II diabetes mellitus without complication (586825779) Type 2 diabetes mellitus without complication, without long-term current use of insulin (E11.9) Active confirmed Plan Of Treatment No Information Insurance Providers Payer Name Payer Address Payer Phone Subscriber Number Group Number Insured Name Patient Relationship to Insured Coverage Start Date Coverage End Date [facility] Claims [address] [place] [id number] Tiburcio Ambriz Self - patient is the insured Medical (General) History Medical History History ICD Code type II diabetes Hypertension Hypercholesterolemia breast cancer Arthritis Surgical History Surgery Date(Month/Year)
--- OUTSIDE RECORDS SUMMARY | 2025-05-17 07:34 | XMS_ITS | Clinical Summary ---
Author Organization [employer] Address [address] [facility] 7 [place] [address] Care Team Providers Care Sole Stitcher Hand Name Role Phone Unavailable Primary Care Provider [...] Alcohol/Substance Use Screening 1962 Tobacco Screening 1962 Mammogram 1992 Zoster Vaccines (3 of 3) [...]
--- OUTSIDE RECORDS SUMMARY | 2025-05-17 07:34 | XMS_ITS | Encounter Summary ---
Author Organization [facility] Address [address] [place] [address] Care Team Providers Care Director Statistical Programming Name Role Phone Unavailable Primary Care Provider Unavailabl e Encounter Details Date Type Department Care Team (Late st Contact Info) Description 08/11/2024 Scanned Document [facility] Emergency Department [address] [place] [address] Shabana Klein Social History Tobacco [...]
--- OUTSIDE RECORDS SUMMARY | 2025-05-17 07:34 | XMS_ITS ---
Author Organization Unknown ENCOUNTERS Encounter Performer Location Date Diagnosis Diagnosis Status Pre Admit [address] [id number] [address]patient [address] [id number] [facility] Outpatient [address] [id number] [address] [address] [id number] AHR Pre Admit FRANDY CONWAY [address] [phone] [id number] *Note: Encounters from your own facility or health system may be excluded. Allergies, Adverse Reactions, Alerts Allergen Type Severity Identification Date Medications Name Date Quantity Days Supplied GPI Number
--- OUTSIDE RECORDS SUMMARY | 2025-05-17 07:35 | XMS_ITS | Clinical Summary ---
Author Organization [facility] Address [address] [place] [address] Care Team Providers Care Design Draftsman Name Role Phone Unavailable Primary Care Provider Unavailabl e Social History Tobacco Use Types Packs/Day Years Used Date Smoking Tobacco: Never Assessed Comments Unknown Sex and Gender Information Value Date Recorded Sex Assigned at Not on file Legal Sex Female 6:41 PM EST Gender Identity Not on file Sexual Orientation Not on file Plan of Treatment Health Maintenance Due Date Last Done Comments Advance Care Planning 1950 Hepatitis C Virus Screening 1950 DTaP/Tdap/Td Vaccines (1 - Tdap) 1971 Pneumococcal Vaccines 50+ (1 of 1 - PCV) 2002 Zoster (Shingles) Vaccine (1 of 2) 2002 COVID-19 Vaccine ( - 2023-2 5 season) 2025 RSV Vaccine 50 years and old er and Patients (1 - 1-dose 75+ series) 2027 Hepatitis B Vaccines Aged Out No long er eligible based on patient's age to complete this topic
== END 2025-05-17 07:31 | disposition home or self-care (01) ==
LOC: HO.MAMMO 07:30
PROVIDERS: PCP Internal Medicine; Visit Provider Internal Medicine
DX: Z12.31 Encounter for screening mammogram for malignant neoplasm of breast (principal)
CPT/HCPCS: 77063; 77067

== ENCOUNTER → 2025-05-17 08:45 | Outpatient (BNV) | payer OTHER, SELFPAY | PROVIDERS: PCP Internal Medicine; Visit Provider Radiology Body Imaging | DX: Z12.31 Encounter for screening mammogram for malignant neoplasm of breast (principal) | CPT/HCPCS: 77063; 77067 ==

== ENCOUNTER 2025-05-22 09:11 | Outpatient (AMB) | payer OTHER, SELFPAY ==
--- NOTE | 2025-05-22 09:44 | MHC.OFFVIS ---
Vital Signs 05/22/25 09:59 Height 5 ft 6 in Weight 196 lb BMI 31.6 BP 136/62 Blood Pressure Location Lt brachial Position Sitting Pulse 73 Intake Visit Reasons: 6 month follow up, breast exam Intake Note: Patient is seen in office for 6 month follow up visit, breast exam. Pt c/o: denies any concerns or changes mm: 05/17/25 Canvassing Manager Required: Yes Canvassing Manager Language: [employer] School Combination Teacher Services: Canvassing Manager Present Canvassing Manager Name: Sumaya NOE Information Interpreted: non-clinical & clinical Broadcast Checker: Broadcast Checker Present Accompanied by: Family/Other Allergies iodine Allergy (Unknown, Verified 05/22/25 09:57) rash chest pain Iodinated Contrast Media (IV Contrast Dye) Allergy (Verified 05/22/25 09:57) chest pain, shortness of breath, pupils dilated oxaprozin (Daypro) Adverse Reaction (Unknown, Verified 05/22/25 09:57) gastritis HPI Comments Details: 75-year-old female patient returning for follow-up breast examination. She was initially evaluated on 03/27/2020 for a palpable left breast mass noted on self examination. This was confirmed on mammogram and ultrasound and ultrasound-guided core biopsy of 3 areas of the left breast performed. This revealed invasive ductal carcinoma, ER/[place]/HER2 Geovanny negative. Patient decided proceed with a modified radical mastectomy performed on 04/16/2020. Final pathology revealed invasive ductal carcinoma, MS BR grade 3 with medullary features; margins were negative, ERPR HER2 Geovanny negative, 0 of 25 axillary lymph nodes with metastatic disease (pT2No). She underwent a AC every 3 weeks x4 followed by Taxotere x4. She reports continued lymphedema in the left arm for which she wears a sleeve mainly at night, which helps. She denies any pain in the chest or arms. Her last mammogram dated 10/15/2024 of the right breast revealed no mammographic evidence of malignancy (BI-RADS 1). She is scheduled for her yearly mammogram on 05/28/2026. [facility] Medical History Lymphedema of left arm Neuropathy Abnormal mammogram of left breast Degenerative disc disease Obesity Dyslipidemia Obstructive sleep apnea Depression Hypertension Diabetes Surgical History History of modified radical mastectomy of left breast History of cataract surgery Invasive ductal carcinoma of left breast History of colonoscopy (~07/31/17) History of colonoscopy (~04/24/06) History of tubal ligation Family History Father History of hypertension Mother History of hypercholesterolemia History of hypertension History of diabetes mellitus Paternal Grandfather No problems noted. Paternal Grandmother No problems noted. Maternal Grandfather No problems noted. Maternal Grandmother History of diabetes mellitus Colon cancer Maternal Uncle History of leukemia Social History Household Members: Family Housing: House Are you a primary live in caregiver to a significant other at home: No Do you presently have visiting nurse or other home services: Yes (lunch program) Alcohol intake: never Comment: pt sleeping Patient Tobacco Use Status: Never used Tobacco Second Hand Smoke Exposure: No service: No Current occupational status: disabled Review of Systems Const Denies chills, Denies fever(s), Denies headache(s) and Denies poor appetite ENT Denies headache(s) Card Denies chest pain, Denies rapid heart rate, Denies palpitations and Denies slow heart rate Resp Denies chest congestion, Denies cough, Denies pain on inspiration and Denies wheezing GI Denies abdominal pain, Denies bloating, Denies change in stool character, Denies constipation, Denies diarrhea, Denies nausea, Denies vomiting and Denies hematemesis Denies nipple discharge Skin/Breast Reports breast skin changes, Reports breast pain, Reports breast mass, Denies change in pigmentation, Denies nipple discharge, Denies erythema and Denies rash Neuro Denies headache(s) Endo Denies palpitations Red/Lymph Denies easy bleeding, Denies easy bruising and Denies lymphadenopathy Aller/Immun Denies wheezing Physical Exam Vital Signs: Last Vital Signs Pulse 73 05/22/25 09:59 BP 136/62 05/22/25 09:59 BMI result Body Mass Index 31.6 Const General: cooperative, healthy appearing, comfortable and no acute distress Chest Other: Left mastectomy incision is clean and intact with no palpable subcutaneous nodules or skin changes. No enlarged lymph nodes noted in the axilla. Right breast with no skin change, nipple retraction, nipple discharge, palpable mass, or enlarged lymph nodes. Resp Other: Breathing comfortably on room air, no respiratory distress Skin Other: Warm, dry, no rash Neuro Other: Mobility Assessment: 1. 3 meter assessment time (seconds):6 2. Gait observations: Normal balance and gait Extrem Other: Left arm normal range of motion, 2+ pitting edema Normal gait Assessment & Plan Assessment & Plan (1) History of modified radical mastectomy of left breast: Code(s): Z90.12 - Acquired absence of left breast and nipple Category: Surgical (2) Invasive ductal carcinoma of left breast: Code(s): C50.912 - Malignant neoplasm of unspecified site of left female breast Category: Surgical Plan 75-year-old female patient returning for a routine follow-up examination after left breast modified radical mastectomy for invasive ductal carcinoma (pT2N0). She completed chemotherapy and tolerated this well. She complains mainly of lymphedema in the left arm. She continues to wear the sleeve for compression especially at night. She denies any new breast symptoms. Examination today reveals no suspicious findings in the left chest wall or right breast. Most recent mammogram of 05/17/2025 revealed no mammographic evidence of malignancy (BI-RADS 1). She is scheduled for a screening mammogram on 05/28/2026. I recommended she follow-up in 1 year for routine breast examination, sooner p.r.n.. Coding Level of Care Code Est Pt Level 3 (01336) Complex visit Add On G2211 Diagnoses History of modified radical mastectomy of left breast Z90.12 Invasive ductal carcinoma of left breast C50.912
[2025-05-22 09:59] VITALS: BP 136/62; PULSE 73; BMI 31.6
--- OUTSIDE RECORDS SUMMARY | 2025-05-22 10:54 | XMS_ITS | Encounter Summary ---
Author Organization [facility] Address [address] [place] [address] Care Team Providers Care Type Copy Examiner Name Role Phone Unavailable Primary Care Provider Unavailabl e Encounter Details Date Type Department Care Team (Late st Contact Info) Description 08/11/2024 Scanned Document [facility] Emergency Department [address] [place] [address] Shabana Klein Social History Tobacco [...]
--- OUTSIDE RECORDS SUMMARY | 2025-05-22 10:54 | XMS_ITS | Encounter Summary ---
Author Organization [employer] Address [address] [facility] [address] [place] [address] Care Team Providers Care Bpm Solution Architect Name Role Phone Unavailable Primary Care Provider Unavailabl e Encounter Details Date Type Department Care Team (Latest Contact Info) Description 04/19/2019 Abstract [facility] CONVERSIONS Dental, Provider, DDS Social History Tobacco [...]
--- OUTSIDE RECORDS SUMMARY | 2025-05-22 10:54 | XMS_ITS | Clinical Summary ---
Author Organization [facility] Address [address] [place] [address] Care Team Providers Care Electro Mechanical Technologist Name Role Phone Unavailable Primary Care Provider [...]
--- OUTSIDE RECORDS SUMMARY | 2025-05-22 10:54 | XMS_ITS | Encounter Summary ---
Author Organization [facility] Address [address] [place] [address] Care Team Providers Care Supervisor Television Chassis Repair Name Role Phone Unavailable Primary Care Provider Unavailabl e Encounter Details Date Type Department Care Team (Late st Contact Info) Description 08/11/2024 Scanned Document [facility] Emergency Department [address] [place] [address] Shabana Klein Social History Tobacco [...]
--- OUTSIDE RECORDS SUMMARY | 2025-05-22 10:54 | XMS_ITS | Clinical Summary ---
Author Organization [employer] Address [address] [facility] [address] [place] [address] Care Team Providers Care Foam Cutting Supervisor Name Role Phone Unavailable Primary Care Provider [...] 2 - PCV) 03/15/2019 03/15/2018 COVID-19 Vaccine ( - 2024- season) 2025 05/29/2021, 12/12/2020, 11/21/2020 [...]
== END 2025-05-22 10:08 | disposition home or self-care (01) ==
LOC: HO.HGS 09:12
PROVIDERS: PCP Internal Medicine; Visit Provider Surgery
DX: Z90.12 Acquired absence of left breast and nipple (principal); C50.912 Malignant neoplasm of unspecified site of left female breast
CPT/HCPCS: 99213; G2211

== ENCOUNTER → 2025-05-22 09:11 | Outpatient (BNVA) | payer OTHER, SELFPAY | PROVIDERS: PCP Internal Medicine; Visit Provider Surgery | DX: C50.912 Malignant neoplasm of unspecified site of left female breast (principal); I89.0 Lymphedema, not elsewhere classified; Z90.12 Acquired absence of left breast and nipple | CPT/HCPCS: 99212 ==